=== PATIENT | male | born 1940 | race Asian ===

== ENCOUNTER 2021-04-14 11:13 | Outpatient (REF) | payer MEDICARE, SELFPAY ==
[2021-04-14 12:24] LABS: MANUAL DIFF FLAG NO
[2021-04-14 12:31] LABS: Basophils Absolute Auto 0.1 X10*3/uL (0.0-0.2); Basophils Percent Auto 0.9 % (0-2); Eosinophils Absolute Auto 0.3 X10*3/uL (0.0-0.4); Eosinophils Percent Auto 5.6 % (0-4); Hematocrit 43.7 % (42-52); Imm Gran Abs Auto 0.01 X10*3/uL (0.00-0.03); Imm Gran Pct Auto 0.2 % (0.0-0.4); Lymphocytes Absolute Auto 1.4 X10*3/uL (1.2-4.9); Lymphocytes Percent Auto 25.5 % (20-40); Mean Corpuscular Hemoglobin 30.4 pg (27.0-33.0); Mean Platelet Volume 9.5 fL (9.4-12.4); Monocytes Absolute Auto 0.4 X10*3/uL (0.1-1.2); Neutrophils Absolute Auto 3.2 X10*3/uL (2.0-8.3); Neutrophils Percent Auto 59.8 % (45-73); Platelet Count 143 X10*3/uL (160-400); Red Cell Distribution Width 12.1 % (11.0-16.0); White Blood Count 5.4 X10*3/uL (4.8-10.8)
[2021-04-14 13:09] LABS: TSH reflex Free T4 0.74 uIU/mL (0.32-4.0); Vitamin D 25-OH Total 22.5 ng/mL (>30)
[2021-04-14 13:25] LABS: Folate 13.8 ng/mL (> or = 4.0); Vitamin B12 432 pg/mL (200-900)
[2021-04-14 13:43] LABS: Alanine Aminotransferase 6 U/L (0-40); Alkaline Phosphatase 67 U/L (39-117); Anion Gap 12 (12-20); Aspartate Amino Transferase 16 U/L (5-37); Bilirubin Total 0.7 mg/dL (0.0-1.0); Blood Urea Nitrogen 15 mg/dL (9-16); Calcium 8.3 mg/dL (8.4-10.2); Carbon Dioxide 25 mmol/L (22-29); Chloride 111 mmol/L (96-108); Cholesterol 236 mg/dL; Estimated Glomerular Filt Rate > 60; Glucose Fasting 95 mg/dL (60-99); HDL Cholesterol 60 mg/dL; Iron 116 mcg/dL (45-160); LDL Cholesterol Calculated 153 mg/dl; Percent Iron Saturation 41 % (15-50); Potassium 4.8 mmol/L (3.3-5.1); Sodium 143 mmol/L (135-145); Total Iron Binding Capacity 283 mcg/dL (228-428); Total Protein 6.9 g/dL (6.5-8.0); Triglycerides 118 mg/dL; Unsaturated Iron Binding 167 ug/dL
[2021-04-14 14:08] LABS: Prostate Specific Antigen 2.92 ng/mL (<0.05-4.0)
[2021-04-14 14:12] LABS: Glucose Urine UA NEG (NEG); Leukocyte Esterase Urine 1+ (NEG); Nitrite Urine NEG (NEG); Specific Gravity - Urine 1.015 (1.005-1.025); UACC Culture Trigger YES; Urine Blood NEG (NEG); Urine Ketones NEG (NEG); Urine Protein NEG (NEG-TRACE)
[2021-04-14 14:15] LABS: Appearance Urine HAZY; Color Urine YELLOW
[2021-04-14 14:37] LABS: RBC Urine 0-2 /HPF (0)
== END 2021-04-14 11:14 | disposition home or self-care (01) ==
LOC: HO.LAB 11:13
PROVIDERS: PCP Internal Medicine; Visit Provider Internal Medicine
DX: Z00.00 Encounter for general adult medical examination without abnormal findings (principal); Z12.5 Encounter for screening for malignant neoplasm of prostate; E78.00 Pure hypercholesterolemia, unspecified; M54.10 Radiculopathy, site unspecified; D64.9 Anemia, unspecified; E55.9 Vitamin D deficiency, unspecified
CPT/HCPCS: 36415; 80053; 80061; 81001; 81003; 82306; 82607; 82746; 83540; 84153; 84443; 85025; 87086

== ENCOUNTER 2021-06-21 08:23 | Outpatient (REF) | payer MEDICARE, SELFPAY ==
--- NOTE | 2021-06-21 09:55 | MHC.AU.ANR ---
Adult Audiological Evaluation Date of Visit: 06/21/21 Rouge Sifter Used: Cantonese- In Person Reason for Appointment: Audiological evaluation due to concern for decreased hearing. Mr. Zarate notes that he hasn't been able to hear from the left ear for 20+ years. He states that in 1992 he was told by a doctor that smoking was causing problems with his throat and ear. Mr. Zarate states he quit smoking at that time but his hearing never improved. He states that he has been evaluated in the past and was told that a hearing aid wouldn't help in the left ear. He feels his right ear is gradually getting worse as well. He notes that if he is paying full attention he is able to hear and understand well, but often he'll miss what was said and ask for repetition. Does patient feel they have a hearing loss?: Yes If Yes, Which Ear?: Both Ears When Was Hearing Difficulty First Noticed?: 20+ years ago Hearing Handicap Inventory: HHIE SCORE: 8 Based on HHIE score, patient has: No perceived hearing handicap Ear History: Ear Infections in Childhood: Both Ears Medical History: Medical History: Previous Tobacco Use (quit in 1992) Medical History (Other): Frequent sinus congestion and seasonal allergies, high cholesterol Medication List: Meloxicam 7.5 mg, Senna 8.6 mg 1-3 capsules PRN Otoscopy: Right Ear: Unremarkable Left Ear: Unremarkable Tympanometry: Tympanometry performed due to: To assess integrity of the middle ear system Right Ear: Normal Middle Ear System (Type A) Left Ear: Normal Middle Ear System (Type A) Hearing Evaluation: Transducer(s) Used: Insert Earphones, Bone Conduction Method: Conventional Audiometry Stimuli Used: Pure Tones Right Ear: Description of Hearing: Mild sloping to severe sensorineural hearing loss from 250-8000 Hz. Left Ear: Description of Hearing: Severe mixed hearing loss from 250-6000 Hz, sloping to a profound hearing loss at 8000 Hz. Speech Recognition Threshold (SRT): Method Used: Not performed at today's visit. Did not test - Patient speaks Cantonese Word Discrimination: Method: Not performed at today's visit. Did not test - Patient speaks Cantonese Recommendations: Audiological re-evaluation in one year to monitor hearing loss. Trial with amplification is recommended. Referral to Ear, Nose, and Throat is recommended due to asymmetric hearing and mixed hearing loss in the left ear. Advised patient that we do no accept his health insurance for hearing aids at our clinic. Recommended that he contact his health insurance company to see if he has hearing aid benefits and where he can go to use them. Welcomed to return to discuss hearing aids if he decides to pursue hearing aids through our clinic on a patient pay basis or if his insurance with reimburse the hearing aid expense. Diagnosis: Primary Diagnosis: H90.3 Bilateral Sensorineural Hearing Loss Services Performed: Services Performed: Pure Tone- Air & Bone (CPT 99538) Tympanometry (CPT 53707) Signature: Provider: Donaldo Sorenson, CCC-A
== END 2021-06-21 08:24 | disposition home or self-care (01) ==
LOC: HO.SH 08:23
PROVIDERS: Visit Provider Internal Medicine
DX: H91.92 Unspecified hearing loss, left ear (principal)
CPT/HCPCS: 92553; 92567

== ENCOUNTER 2021-08-19 10:22 | Outpatient (REF) | payer MEDICARE, SELFPAY ==
[2021-08-19 13:42] LABS: Hemoglobin 13.9 g/dl (14.0-18.0); Mean Corpuscular HGB Conc 32.3 g/dl (31.0-36.0); Mean Corpuscular Hemoglobin 30.3 pg (27.0-33.0); Mean Corpuscular Volume 93.9 fL (80-98); Mean Platelet Volume 10.1 fL (9.4-12.4); Platelet Count 153 X10*3/uL (160-400); Red Blood Count 4.58 X10*6/uL (4.60-5.80); Red Cell Distribution Width 12.4 % (11.0-16.0); White Blood Count 6.9 X10*3/uL (4.8-10.8)
[2021-08-19 13:57] LABS: Anion Gap 16 (12-20); Blood Urea Nitrogen 14 mg/dL (9-16); Carbon Dioxide 22 mmol/L (22-29); Chloride 108 mmol/L (96-108); Estimated Glomerular Filt Rate > 60; Glucose Random 92 mg/dL (60-115); Potassium 4.4 mmol/L (3.3-5.1); Sodium 142 mmol/L (135-145)
[2021-08-19 14:21] LABS: Thyroid Stimulating Hormone 0.83 uIU/mL (0.32-4.0)
[2021-08-19 14:25] LABS: Erythrocyte Sedimentation Rate 18 MM/HR (0-15)
== END 2021-08-19 10:23 | disposition home or self-care (01) ==
LOC: HO.HMGCLDS 10:22
PROVIDERS: PCP Internal Medicine; Visit Provider Internal Medicine
DX: E07.9 Disorder of thyroid, unspecified (principal)
CPT/HCPCS: 36415; 80048; 84443; 85027; 85652

== ENCOUNTER 2021-08-24 14:03 | Outpatient (REF) | payer MEDICARE, SELFPAY ==
--- NOTE | ~2021-08-24 | US_ITS ---
EXAMINATION: US THYROID CLINICAL INFORMATION: Sudden swelling left thyroid COMPARISON: None TECHNIQUE: Linear transducer fair-scale and color Doppler examination with attention to the region of the thyroid. FINDINGS: SIZE: Measurements of the thyroid lobes and nodules are given in sagittal, anteroposterior and transverse dimensions respectively. Right Thyroid Lobe: 4.8 x 1.3 x 1.6 cm, volume 5.2 mL. Parenchyma: The gland echotexture is homogeneous. Thyroid vascularity is normal. Left Thyroid Lobe: 6.5 x 4.0 x 4.4 cm, volume 59.8 mL. Parenchyma: The gland echotexture is homogeneous. Thyroid vascularity is normal. Isthmus: 0.3 cm in maximum AP dimension. Estimated total number of nodules greater than or equal to 1 cm: 1. Interlacer nodules are described as follows: 1. Location: Left. Size: 5.8 x 3.7 x 5.2 cm, volume 58.7 mL. Nodule characteristics: Composition: Mixed cystic and solid (1). Echogenicity: Very hypoechoic (3). Shape: Not taller than wide (0). Margins: Lobulated (2). Echogenic Foci: Punctate echogenic foci (3). ACR TI-RADS total points: 9 ACR TI-RADS category: 5 NODES: No lymphadenopathy is seen in the tissue surrounding the thyroid gland. US/US thyroid IMPRESSION: Abnormal study. There is a large 5.8 cm mixed cystic, solid nodule identified involving nearly the entire left lobe of the thyroid gland. Based on the sonographic morphology, the nodule is characterized as ACR TI-RADS 5. Based on the size of the nodule, fine-needle aspiration is recommended. ACR TI-RADS RECOMMENDATION REFERENCE: Ultrasound-guided fine-needle aspiration, followup ultrasound, no further follow up. * TR1 (0 point) and TR 2 (2 points): No FNA or follow up * TR3 (3 points): FNA if more than or equal to 2.5 cm in maximum dimension, followup ultrasound in 1, 3 and 5 years if 1.5 to 2.4 cm in maximum dimension. * TR4 (4-6 points): FNA if more than or equal to 1.5 cm in maximum dimension, followup ultrasound in 1, 2, 3 and 5 years if 1 to 1.4 cm in maximum dimension. * TR5 (more than or equal to 7 points): FNA if more than or equal to 1 cm in maximum dimension, followup ultrasound every year for 5 years if 0.5 to 0.9 cm in maximum dimension. * TR3, TR4 or TR5 nodules that are below the size threshold for follow up receive no follow up.
== END 2021-08-24 14:04 | disposition home or self-care (01) ==
LOC: HO.HMGCX 14:03
PROVIDERS: PCP Internal Medicine; Visit Provider Internal Medicine
DX: E07.9 Disorder of thyroid, unspecified (principal)
CPT/HCPCS: 76536

== ENCOUNTER → 2021-11-20 07:01 | Outpatient (BNVA) | payer MEDICARE, SELFPAY | PROVIDERS: PCP Internal Medicine; Visit Provider Internal Medicine | DX: E04.1 Nontoxic single thyroid nodule (principal); E55.9 Vitamin D deficiency, unspecified | CPT/HCPCS: Q3014 ==

== ENCOUNTER 2021-11-21 08:40 | Outpatient (REF) | payer MEDICARE, SELFPAY ==
[2021-11-21 11:59] LABS: Alanine Aminotransferase 10 U/L (0-40); Albumin Level 3.9 g/dL (3.5-5.0); Alkaline Phosphatase 63 U/L (39-117); Anion Gap 12 (12-20); Aspartate Amino Transferase 18 U/L (5-37); Bilirubin Total 0.9 mg/dL (0.0-1.0); Blood Urea Nitrogen 15 mg/dL (9-16); Calcium 9.2 mg/dL (8.4-10.2); Carbon Dioxide 26 mmol/L (22-29); Chloride 111 mmol/L (96-108); Estimated Glomerular Filt Rate 60; Glucose Random 100 mg/dL (60-115); Phosphorus 2.8 mg/dL (2.7-4.5); Potassium 4.7 mmol/L (3.3-5.1); Sodium 144 mmol/L (135-145); Total Protein 7.1 g/dL (6.5-8.0)
[2021-11-21 12:24] LABS: Free T4 (Free Thyroxine) 0.98 ng/dL (0.71-1.85); Thyroid Stimulating Hormone 1.79 uIU/mL (0.32-4.0); Vitamin D 25-OH Total 14.9 ng/mL (>30)
[2021-11-22 14:46] LABS: Calcium (PTHI) 8.9 mg/dL (8.6-10.3); PTHI 43 pg/mL (14-64)
== END 2021-11-21 08:41 | disposition home or self-care (01) ==
LOC: HO.HMGCLDS 08:40
PROVIDERS: Visit Provider Internal Medicine
DX: E04.1 Nontoxic single thyroid nodule (principal); E55.9 Vitamin D deficiency, unspecified
CPT/HCPCS: 36415; 80053; 82306; 83970; 84100; 84439; 84443

== ENCOUNTER 2021-11-27 07:22 | Outpatient (REF) | payer MEDICARE, SELFPAY ==
--- NOTE | ~2021-11-27 | CT_ITS ---
EXAMINATION: CT SOFT TISSUE NECK WITHOUT CONTRAST CLINICAL INFORMATION: Nontoxic single thyroid nodule. COMPARISON: Previous thyroid ultrasound August 2021. TECHNIQUE: Helical imaging was performed in the axial plane with generation of coronal and sagittal reformatted images. This CT examination was performed using dose optimization techniques as appropriate, variously including the following: *Automated exposure control *Adjustment of mA and/or kV according to patient size (this includes techniques or standardized protocols for targeted exams where dose is matched to indication/reason for exam; i.e. extremities or head) *Use of iterative reconstruction technique DLP: 346 mGy-cm FINDINGS: There is a solitary 2 x 2.5 x 3.6 cm left thyroid nodule. Right lobe of the thyroid gland is normal-appearing. Left thyroid nodule displaces the trachea slightly to the right. There is diffuse shotty cervical lymphadenopathy. No enlarged lymph nodes are seen. Visualized intracranial structures are normal. The visualized orbits are normal. The visualized paranasal sinuses are clear. There is underaeration and increased sclerosis of the left mastoid air cells questionable for changes from old mastoiditis. Right mastoid air cells and bilateral middle ears are clear. The temporomandibular joints are normal. The nasal and oropharynx and hypopharynx are normal appearing. The larynx is normal appearing. The salivary glands are normal. There are no enlarged mediastinal lymph nodes. The visualized thoracic aorta is upper normal in size. Evaluation of the lung apices is limited due to respiratory motion artifact. There is question of area of atelectasis and patchy groundglass attenuation. There are degenerative changes of the spine. CT/CT soft tissue neck wo con IMPRESSION: Solitary 2 x 2.5 x 3.6 cm left thyroid nodule that displaces the trachea to the right. Diffuse shotty cervical lymphadenopathy. No enlarged lymph nodes seen. Question patchy areas of atelectasis and groundglass attenuation at the lung apices. Clinical correlation is recommended.
== END 2021-11-27 07:23 | disposition home or self-care (01) ==
LOC: HO.CT 07:22
PROVIDERS: Visit Provider Internal Medicine
DX: E04.1 Nontoxic single thyroid nodule (principal)
CPT/HCPCS: 70490

== ENCOUNTER 2021-12-21 07:20 | Outpatient (REF) | payer MEDICARE, SELFPAY ==
--- NOTE | 2021-12-21 08:19 | P.BOP_ITS ---
Brief Operative Note Date of Service: 12/21/21 Pre-op diagnosis: Thyroid Nodule Procedure: This is doctor Lucia Lou. This is an ultrasound-guided fine-needle aspiration report. Date of Examination: 12/21/2021 Indication: Multinodular Thyroid Porcedure: Procedure was explained to the patient. Alternatives, the risk and benefits were discussed. Written consent was obtained. A time-out was also obtained. After sterile preparation, fine-needle aspiration of a left mid pole 5.8 cm thyroid nodule was performed using direct ultrasound guidance to confirm accurate needle placement. 5 aspirations were made using 27 gauge needles. An additional 1 aspiration was made using a 25 guage needle. 11 cc of chocolate brown serosanguinous material was aspirated using a 22 guage needle. Samples were submitted for cytology. One pass was dedicated for [employer] Gene sequencing steward/stewardess lounge testing. The patient tolerated the procedure well. Aftercare instructions were provided. Impression: Uncomplicated fine needle aspiration biopsy of a left mid pole 5.8 cm thyroid nodule under ultrasound guidance. Surgeon: Lucia Lou, DO Was an Bulk Fluids Handler used for this Procedure?: No Estimated blood loss (mL): 0
[2021-12-21] MEDS: Lidocaine HCl 1 % MPF 5 ML VIAL SUBCUT (09:53)
== END 2021-12-21 07:21 | disposition home or self-care (01) ==
LOC: HO.US 07:20
PROVIDERS: Visit Provider Internal Medicine
DX: E04.1 Nontoxic single thyroid nodule (principal)
CPT/HCPCS: 10005; 88172; 88173; 88177

== ENCOUNTER → 2022-01-04 09:41 | Outpatient (BNVA) | payer MEDICARE, SELFPAY | PROVIDERS: PCP Internal Medicine; Visit Provider Internal Medicine | DX: Z13.89 Encounter for screening for other disorder (principal) | CPT/HCPCS: Q3014 ==

== ENCOUNTER 2022-04-16 09:53 | Outpatient (REF) | payer OTHER, SELFPAY ==
[2022-04-16 10:15] LABS: MANUAL DIFF FLAG NO
[2022-04-16 10:49] LABS: Basophils Percent Auto 0.3 % (0-2); Eosinophils Absolute Auto 0.3 X10*3/uL (0.0-0.4); Eosinophils Percent Auto 3.9 % (0-4); Hematocrit 44.5 % (42.0-52.0); Hemoglobin 14.4 g/dl (14.0-18.0); Imm Gran Abs Auto 0.03 X10*3/uL (0.00-0.03); Imm Gran Pct Auto 0.5 % (0.0-0.4); Lymphocytes Absolute Auto 1.1 X10*3/uL (1.2-4.9); Lymphocytes Percent Auto 16.8 % (20-40); Mean Corpuscular HGB Conc 32.4 g/dl (31.0-36.0); Mean Corpuscular Hemoglobin 30.6 pg (27.0-33.0); Mean Corpuscular Volume 94.7 fL (80.0-98.0); Mean Platelet Volume 9.5 fL (9.4-12.4); Monocytes Absolute Auto 0.5 X10*3/uL (0.1-1.2); Monocytes Percent Auto 7.1 % (2-11); Neutrophils Absolute Auto 4.8 x10*3/uL (2.0-8.3); Neutrophils Percent Auto 71.4 % (45-73); Platelet Count 141 X10*3/uL (160-400); Red Cell Distribution Width 12.2 % (11.0-16.0); White Blood Count 6.7 X10*3/uL (4.8-10.8)
[2022-04-16 11:08] LABS: Appearance Urine CLEAR; Color Urine YELLOW; Glucose Urine UA NEG (NEG); Leukocyte Esterase Urine NEG (NEG); Nitrite Urine NEG (NEG); Urine Blood NEG (NEG); Urine Ketones NEG (NEG); Urine Protein NEG (NEG-TRACE)
[2022-04-16 11:13] LABS: Alanine Aminotransferase 21 U/L (0-40); Albumin Level 4.3 g/dL (3.5-5.0); Alkaline Phosphatase 71 U/L (39-117); Anion Gap 9 (12-20); Aspartate Amino Transferase 23 U/L (5-37); Blood Urea Nitrogen 18 mg/dL (9-16); Calcium 9.1 mg/dL (8.4-10.2); Carbon Dioxide 29 mmol/L (22-29); Chloride 108 mmol/L (96-108); Cholesterol 182 mg/dL; Estimated Glomerular Filt Rate > 60; Glucose Fasting 99 mg/dL (60-99); HDL Cholesterol 56 mg/dL; LDL Cholesterol Calculated 107 mg/dl; Potassium 5.2 mmol/L (3.3-5.1); Sodium 141 mmol/L (135-145); Total Protein 7.5 g/dL (6.5-8.0); Triglycerides 97 mg/dL
[2022-04-16 11:36] LABS: TSH reflex Free T4 1.65 uIU/mL (0.32-4.0); Vitamin D 25-OH Total 50.4 ng/mL (>30)
== END 2022-04-16 09:54 | disposition home or self-care (01) ==
LOC: HO.LAB 09:53
PROVIDERS: PCP Internal Medicine; Visit Provider Internal Medicine
DX: Z00.00 Encounter for general adult medical examination without abnormal findings (principal); Z12.5 Encounter for screening for malignant neoplasm of prostate; E78.00 Pure hypercholesterolemia, unspecified; N40.0 Benign prostatic hyperplasia without lower urinary tract symptoms; E04.1 Nontoxic single thyroid nodule; E55.9 Vitamin D deficiency, unspecified
CPT/HCPCS: 36415; 80053; 80061; 81003; 82306; 84153; 84443; 85025

== ENCOUNTER 2022-06-06 10:37 | Outpatient (REF) | payer OTHER, SELFPAY ==
--- NOTE | ~2022-06-06 | XR_ITS ---
EXAMINATION: XR ELBOW, RIGHT CLINICAL INFORMATION: Elbow pain COMPARISON: None TECHNIQUE: AP, lateral, and oblique views of the right elbow. FINDINGS: There is no acute fracture, dislocation or destructive process. Minor areas of osseous density are seen related to the distal humerus which appear chronic. XR/XR elbow RT 2V IMPRESSION: No acute findings.
== END 2022-06-06 10:38 | disposition home or self-care (01) ==
LOC: HO.HMGCX 10:37
PROVIDERS: PCP Internal Medicine; Visit Provider Physician Assistant
DX: M25.521 Pain in right elbow (principal)
CPT/HCPCS: 73070

== ENCOUNTER 2022-07-10 10:16 | Outpatient (REF) | payer OTHER, SELFPAY ==
[2022-07-10 12:28] LABS: Free T4 (Free Thyroxine) 0.98 ng/dL (0.71-1.85); Thyroid Stimulating Hormone 1.51 uIU/mL (0.32-4.0); Vitamin D 25-OH Total 48.6 ng/mL (>30)
== END 2022-07-10 10:17 | disposition home or self-care (01) ==
LOC: HO.HMGCLDS 10:16
PROVIDERS: PCP Internal Medicine; Visit Provider Internal Medicine
DX: E04.1 Nontoxic single thyroid nodule (principal); E55.9 Vitamin D deficiency, unspecified
CPT/HCPCS: 36415; 82306; 84439; 84443

== ENCOUNTER → 2022-07-12 13:47 | Outpatient (BNVA) | payer OTHER, SELFPAY | PROVIDERS: PCP Internal Medicine; Visit Provider Internal Medicine | DX: E04.1 Nontoxic single thyroid nodule (principal); E55.9 Vitamin D deficiency, unspecified | CPT/HCPCS: 99212 ==

== ENCOUNTER 2022-07-20 15:49 | Outpatient (REF) | payer OTHER, SELFPAY ==
--- NOTE | ~2022-07-20 | US_ITS ---
EXAMINATION: US THYROID CLINICAL INFORMATION: Nontoxic single thyroid nodule. COMPARISON: CT soft tissue neck 11/27/2021. Ultrasound soft tissue head/neck thyroid dated 08/24/2021. TECHNIQUE: Linear transducer grayscale and color Doppler examination with attention to the region of the thyroid. FINDINGS: SIZE: Measurements of the thyroid lobes and nodules are given in sagittal, anteroposterior and transverse dimensions respectively. Right Thyroid Lobe: 3.9 x 1.4 x 2.0 cm, volume 5.7 mL. Previously 4.8 x 1.3 x 1.6 cm, volume 5.2 mL. Parenchyma: The gland echotexture is homogeneous. Thyroid vascularity is normal. Left Thyroid Lobe: 3.6 x 2.0 x 2.1 cm, volume 7.9 mL. Previously 6.5 x 4.0 x 4.4 cm, volume 59.8 mL. Parenchyma: The gland echotexture is homogeneous. Thyroid vascularity is normal. Isthmus: 0.4 cm in maximum AP dimension. Previously 0.3 cm. Estimated total number of nodules greater than or equal to 1 cm: 1. Race Board Attendant nodules are described as follows: 1. Location: Left mid. Size: 1.7 x 1.3 x 1.9 cm, volume 2.2 mL. Previously: 5.8 x 3.7 x 5.2 cm, volume 58.7 mL. Nodule characteristics: Composition: Solid (2). Echogenicity: Isoechoic (1). Shape: Not taller than wide (0). Margins: Smooth (0). Echogenic Foci: None (0). ACR TI-RADS total points: 3 Previous: 9 ACR TI-RADS category: 3 Previous: 5 Significant change in size (>/= 20% in 2 dimensions and minimal increase of 2 mm or 50% or greater increase in volume): Yes Change in features: Yes Change in ACR TI-RADS risk category: Yes 2. Location: Left superior. Size: 0.4 x 0.3 x 0.4 cm, volume 0.02 mL. Previously: Not seen on the previous study. Nodule characteristics: Composition: Cystic(0). ACR TI-RADS total points: 0 ACR TI-RADS category: 1 NODES: No lymphadenopathy is seen in the tissue surrounding the thyroid gland. US/US thyroid IMPRESSION: Previously visualized mixed cystic and solid nodule of the left thyroid lobe which previously measured 5.8 cm is primarily solid on today's imaging and has significantly decreased in size measuring only 1.9 cm. Patient has a reported history of FNA at an outside institution. Correlation with biopsy results recommended. ACR TI-RADS RECOMMENDATION REFERENCE: Ultrasound-guided fine-needle aspiration, followup ultrasound, no further follow up. * TR1 (0 point) and TR 2 (2 points): No FNA or follow up * TR3 (3 points): FNA if more than or equal to 2.5 cm in maximum dimension, followup ultrasound in 1, 3 and 5 years if 1.5 to 2.4 cm in maximum dimension. * TR4 (4-6 points): FNA if more than or equal to 1.5 cm in maximum dimension, followup ultrasound in 1, 2, 3 and 5 years if 1 to 1.4 cm in maximum dimension. * TR5 (more than or equal to 7 points): FNA if more than or equal to 1 cm in maximum dimension, followup ultrasound every year for 5 years if 0.5 to 0.9 cm in maximum dimension. * TR3, TR4 or TR5 nodules that are below the size threshold for follow up receive no follow up.
== END 2022-07-20 15:50 | disposition home or self-care (01) ==
LOC: HO.US 15:49
PROVIDERS: Visit Provider Internal Medicine
DX: E04.1 Nontoxic single thyroid nodule (principal)
CPT/HCPCS: 76536

== ENCOUNTER 2022-07-23 12:41 | Outpatient (REF) | payer OTHER, SELFPAY ==
--- NOTE | ~2022-07-23 | XR_ITS ---
EXAMINATION: XR SHOULDER, LEFT CLINICAL INFORMATION: Left shoulder pain COMPARISON: None TECHNIQUE: Three views of the left shoulder. FINDINGS: Mild/moderate glenohumeral osteoarthritis with osteophytes along the inferior glenoid rim and humeral head. No fracture. No suspicious bone lesion or soft tissue calcification. 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 No acute abnormality.
== END 2022-07-23 12:42 | disposition home or self-care (01) ==
LOC: HO.HOSX 12:41
PROVIDERS: Visit Provider Physician Assistant
DX: M25.512 Pain in left shoulder (principal); S16.1XXD Strain of muscle, fascia and tendon at neck level, subsequent encounter; X58.XXXD Exposure to other specified factors, subsequent encounter; Z79.899 Other long term (current) drug therapy
CPT/HCPCS: 73030; 99202

== ENCOUNTER 2023-01-14 08:48 | Outpatient (REF) | payer OTHER, SELFPAY ==
[2023-01-14 12:42] LABS: Alanine Aminotransferase 14 U/L (0-40); Albumin Level 3.9 g/dL (3.5-5.0); Alkaline Phosphatase 66 U/L (39-117); Anion Gap 12 (12-20); Aspartate Amino Transferase 18 U/L (5-37); Blood Urea Nitrogen 16 mg/dL (9-16); Calcium 8.7 mg/dL (8.4-10.2); Carbon Dioxide 26 mmol/L (22-29); Chloride 109 mmol/L (96-108); Cholesterol 172 mg/dL; Estimated Glomerular Filt Rate > 60; Glucose Fasting 95 mg/dL (60-99); HDL Cholesterol 56 mg/dL; LDL Cholesterol Calculated 100 mg/dl; Potassium 4.2 mmol/L (3.3-5.1); Sodium 143 mmol/L (135-145); Thyroid Stimulating Hormone 2.45 uIU/mL (0.32-4.0); Total Protein 6.7 g/dL (6.5-8.0); Triglycerides 84 mg/dL
[2023-01-14 12:50] LABS: Free T4 (Free Thyroxine) 0.93 ng/dL (0.71-1.85)
== END 2023-01-14 08:49 | disposition home or self-care (01) ==
LOC: HO.HMGCLDS 08:48
PROVIDERS: PCP Internal Medicine; Visit Provider Internal Medicine
DX: E04.1 Nontoxic single thyroid nodule (principal); E78.00 Pure hypercholesterolemia, unspecified
CPT/HCPCS: 36415; 80053; 80061; 84439; 84443

== ENCOUNTER → 2023-01-21 07:43 | Outpatient (BNVA) | payer OTHER, SELFPAY | PROVIDERS: PCP Internal Medicine; Visit Provider Internal Medicine | DX: E04.1 Nontoxic single thyroid nodule (principal) | CPT/HCPCS: 99212 ==

== ENCOUNTER 2023-01-28 07:51 | Outpatient (REF) | payer OTHER, SELFPAY ==
--- NOTE | ~2023-01-28 | CT_ITS ---
CT SOFT TISSUE NECK WITHOUT CONTRAST CLINICAL INFORMATION: Nontoxic single thyroid nodule. COMPARISON: Thyroid ultrasound 07/20/2022. TECHNIQUE: Helical imaging was performed in the axial plane with generation of coronal and sagittal reformatted images. This CT examination was performed using dose optimization techniques as appropriate, variously including the following: *Automated exposure control *Adjustment of mA and/or kV according to patient size (this includes techniques or standardized protocols for targeted exams where dose is matched to indication/reason for exam; i.e. extremities or head) *Use of iterative reconstruction technique FINDINGS: A 1.9 cm nodule within the anterior aspect of the left thyroid lobe is better demonstrated on the recent thyroid ultrasound. There is no significant mass effect on the trachea nor the esophagus. No retropharyngeal fluid collections. The parotid glands, the submandibular glands, and the orbital soft tissues are unremarkable. There is no cervical lymphadenopathy. No definite superficial mucosal space lesions on this noncontrast CT. The imaged lungs are well aerated. Imaged upper mediastinum is unremarkable. There is multilevel cervical spondylosis. Hypertrophic degenerative changes involving the atlantodental interval. The paranasal sinuses remain well-aerated. Left mastoid air cells are peripherally sclerotic and underpneumatized as the sequela of chronic left mastoiditis. CT/CT soft tissue neck wo IV con IMPRESSION: A 1.9 cm nodule within the anterior aspect of the left thyroid lobe is better demonstrated on the recent thyroid ultrasound and likely similar in size. No mass effect. No cervical lymphadenopathy.
== END 2023-01-28 07:52 | disposition home or self-care (01) ==
LOC: HO.CT 07:51
PROVIDERS: PCP Internal Medicine; Visit Provider Internal Medicine Endocrinology, Diabetes & Metabolism
DX: E04.1 Nontoxic single thyroid nodule (principal)
CPT/HCPCS: 70490

== ENCOUNTER 2023-03-28 08:00 | Outpatient (REF) | payer OTHER, SELFPAY ==
--- NOTE | 2023-03-28 08:46 | PM.OP ---
Brief Operative Note Date of Service: 03/28/23 Pre-op diagnosis: Thyroid Nodule Procedure: This is doctor Lucia Lou. This is an ultrasound-guided fine-needle aspiration report. Indication: Multinodular Thyroid Porcedure: Procedure was explained to the patient. Alternatives, the risk and benefits were discussed. Written consent was obtained. A time-out was also obtained. After sterile preparation, 1 ml of 1% lidocaine solution was applied subcutaneously for anesthetic effect. Then Fine-needle aspiration of a left mid pole 1.6 cm thyroid nodule was performed using direct ultrasound guidance to confirm accurate needle placement. Two aspirations were made using 27 gauge needles. An additional 3 aspirations were made using 25 guage needles. Samples were submitted for cytology. One pass was dedicated for [employer] Gene sequencing management architect testing. The patient tolerated the procedure well. Aftercare instructions were provided. Impression: Uncomplicated fine needle aspiration biopsy of a left mid pole 1.6 cm thyroid nodule under ultrasound guidance. The patient had difficulty tolerating the biopsy. No additional passess were made after those listed above. Surgeon: Lucia Lou, DO Was an Purchasing Coordinator used for this Procedure?: No Estimated blood loss (mL): 0
[2023-03-28] MEDS: Lidocaine HCl 1 % MPF 5 ML VIAL SUBCUT (10:44)
== END 2023-03-28 08:01 | disposition home or self-care (01) ==
LOC: HO.US 08:00
PROVIDERS: PCP Internal Medicine; Visit Provider Internal Medicine
DX: E04.2 Nontoxic multinodular goiter (principal)
CPT/HCPCS: 10005; 88172; 88173; 88177; 88305

== ENCOUNTER 2023-04-19 09:36 | Outpatient (REF) | payer OTHER, SELFPAY ==
[2023-04-19 11:17] LABS: MANUAL DIFF FLAG NO
[2023-04-19 11:32] LABS: Appearance Urine Clear; Color Urine Yellow; Glucose Urine UA Negative (Negative); Leukocyte Esterase Urine Negative (Negative); Nitrite Urine Negative (Negative); Specific Gravity - Urine 1.015 (1.005-1.025); Urine Blood Negative (Negative); Urine Ketones Negative (Negative); Urine Protein Trace mg/dL (Neg-Trace)
[2023-04-19 11:36] LABS: Basophils Absolute Auto 0.1 X10*3/uL (0.0-0.2); Basophils Percent Auto 0.9 % (0-2); Eosinophils Absolute Auto 0.2 X10*3/uL (0.0-0.4); Eosinophils Percent Auto 3.1 % (0-4); Hematocrit 41.8 % (42.0-52.0); Hemoglobin 13.5 g/dl (14.0-18.0); Imm Gran Abs Auto 0.02 X10*3/uL (0.00-0.03); Imm Gran Pct Auto 0.4 % (0.0-0.4); Lymphocytes Absolute Auto 1.2 X10*3/uL (1.2-4.9); Lymphocytes Percent Auto 21.1 % (20-40); Mean Corpuscular HGB Conc 32.3 g/dl (31.0-36.0); Mean Corpuscular Hemoglobin 30.8 pg (27.0-33.0); Mean Corpuscular Volume 95.4 fL (80.0-98.0); Mean Platelet Volume 9.6 fL (9.4-12.4); Monocytes Absolute Auto 0.5 X10*3/uL (0.1-1.2); Monocytes Percent Auto 9.7 % (2-11); Neutrophils Absolute Auto 3.6 x10*3/uL (2.0-8.3); Neutrophils Percent Auto 64.8 % (45-73); Platelet Count 143 X10*3/uL (160-400); Red Blood Count 4.38 X10*6/uL (4.60-5.80); Red Cell Distribution Width 12.1 % (11.0-16.0); White Blood Count 5.6 X10*3/uL (4.8-10.8)
[2023-04-19 12:02] LABS: Free T4 (Free Thyroxine) 0.95 ng/dL (0.71-1.85)
[2023-04-19 13:27] LABS: Alanine Aminotransferase 21 U/L (0-40); Albumin Level 3.7 g/dL (3.5-5.0); Alkaline Phosphatase 65 U/L (39-117); Anion Gap 12 (12-20); Aspartate Amino Transferase 22 U/L (5-37); Bilirubin Total 0.8 mg/dL (0.0-1.0); Blood Urea Nitrogen 17 mg/dL (9-16); Calcium 9.3 mg/dL (8.4-10.2); Carbon Dioxide 25 mmol/L (22-29); Chloride 110 mmol/L (96-108); Cholesterol 163 mg/dL; Estimated Glomerular Filt Rate 59; Glucose Fasting 92 mg/dL (60-99); HDL Cholesterol 51 mg/dL; LDL Cholesterol Calculated 97 mg/dl; Potassium 4.3 mmol/L (3.3-5.1); Sodium 143 mmol/L (135-145); Total Protein 6.7 g/dL (6.5-8.0); Triglycerides 79 mg/dL
[2023-04-19 13:32] LABS: TSH reflex Free T4 1.83 uIU/mL (0.32-4.0); Thyroid Stimulating Hormone 1.83 uIU/mL (0.32-4.0); Vitamin D 25-OH Total 50.4 ng/mL (>30)
== END 2023-04-19 09:37 | disposition home or self-care (01) ==
LOC: HO.HMGCLDS 09:36
PROVIDERS: Absent Provider Internal Medicine; PCP Internal Medicine; Visit Provider Internal Medicine
DX: I10 Essential (primary) hypertension (principal); E78.00 Pure hypercholesterolemia, unspecified; R30.0 Dysuria; E55.9 Vitamin D deficiency, unspecified; E04.1 Nontoxic single thyroid nodule
CPT/HCPCS: 36415; 80053; 80061; 81003; 82306; 84439; 84443; 85025

== ENCOUNTER → 2023-04-22 15:26 | Outpatient (BNVA) | payer OTHER, SELFPAY | PROVIDERS: PCP Internal Medicine; Visit Provider Internal Medicine | DX: E04.1 Nontoxic single thyroid nodule (principal) | CPT/HCPCS: 99212 ==

== ENCOUNTER 2023-09-23 09:03 | Outpatient (REF) | payer MEDICARE, SELFPAY ==
--- NOTE | ~2023-09-23 | US_ITS ---
EXAMINATION: US THYROID CLINICAL INFORMATION: Nontoxic single thyroid nodule. COMPARISON: Ultrasound-guided fine needle aspiration 03/28/2023. Thyroid ultrasound 07/20/2022 and 08/24/2021. TECHNIQUE: Linear transducer fair-scale and color Doppler examination with attention to the region of the thyroid. FINDINGS: SIZE: Measurements of the thyroid lobes and nodules are given in sagittal, anteroposterior and transverse dimensions respectively. Right Thyroid Lobe: 4.1 x 1.4 x 1.9 cm, volume 5.6 mL. Previously 3.9 x 1.4 x 2.0 cm, volume 5.7 mL. Parenchyma: The gland echotexture is homogeneous. Thyroid vascularity is increased. Left Thyroid Lobe: 5.1 x 2.2 x 2.1 cm, volume 12.6 mL. Previously 3.6 x 2.0 x 2.1 cm, volume 7.9 mL. Parenchyma: The gland echotexture is homogeneous. Thyroid vascularity is increased. Isthmus: 0.5 cm in maximum AP dimension. Previously 0.4 cm. Estimated total number of nodules greater than or equal to 1 cm: 1. Laundry Aide nodules are described as follows: 1. Location: Left superior. Size: 0.5 x 0.3 x 0.5 cm, volume 0.04 mL. Previously: 0.4 x 0.3 x 0.4 cm, volume 0.02 mL. Nodule characteristics: Composition: Cystic(0). ACR TI-RADS total points: 0 Previous: 0 ACR TI-RADS category: 1 Previous: 1 Significant change in size (>/= 20% in 2 dimensions and minimal increase of 2 mm or 50% or greater increase in volume): Yes Change in features: No Change in ACR TI-RADS risk category: No 2. Location: Left mid. Size: 1.6 x 1.1 x 1.4 cm, volume 1.2 mL. Previously: 1.7 x 1.3 x 1.9 cm, volume 2.2 mL. Nodule characteristics: Composition: Solid (2). Echogenicity: Hypoechoic (2). Shape: Not taller than wide (0). Margins: Smooth (0). Echogenic Foci: Punctate echogenic foci (3). ACR TI-RADS total points: 7 Previous: 3 ACR TI-RADS category: 5 Previous: 3 Significant change in size (>/= 20% in 2 dimensions and minimal increase of 2 mm or 50% or greater increase in volume): No Change in features: Yes Change in ACR TI-RADS risk category: Yes 3. Location: Left inferior. Size: 0.4 x 0.3 x 0.3 cm, volume 0.02 mL. Previously: Not seen on the previous study. Nodule characteristics: Composition: Cystic(0). ACR TI-RADS total points: 0 ACR TI-RADS category: 1 NODES: No lymphadenopathy is seen in the tissue surrounding the thyroid gland. US/US thyroid IMPRESSION: 1. A 1.6 cm mid left thyroid lobe TR 5 nodule meets ACR biopsy criteria. Please correlate with thyroid biopsy results dated 03/28/2023. 2. 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 3. There is increased thyroid vascularity, which can be associated with thyroiditis. ACR TI-RADS RECOMMENDATION REFERENCE: Ultrasound-guided fine-needle aspiration, follow up ultrasound, no further followup. * TR1 (0 point) and TR2 (2 points): No FNA or followup * TR3 (3 points): FNA if more than or equal to 2.5 cm in maximum dimension, follow up ultrasound in 1, 3 and 5 years if 1.5 to 2.4 cm in maximum dimension. * TR4 (4-6 points): FNA if more than or equal to 1.5 cm in maximum dimension, follow up ultrasound in 1, 2, 3 and 5 years if 1 to 1.4 cm in maximum dimension. * TR5 (more than or equal to 7 points): FNA if more than or equal to 1 cm in maximum dimension, follow up ultrasound every year for 5 years if 0.5 to 0.9 cm in maximum dimension. * TR3, TR4 or TR5 nodules that are below the size threshold for follow up receive no followup.
== END 2023-09-23 09:04 | disposition home or self-care (01) ==
LOC: HO.US 09:03
PROVIDERS: PCP Internal Medicine; Visit Provider Internal Medicine
DX: E04.1 Nontoxic single thyroid nodule (principal)
CPT/HCPCS: 76536

== ENCOUNTER 2023-10-17 09:32 | Outpatient (REF) | payer MEDICARE, SELFPAY ==
[2023-10-17 11:28] LABS: MANUAL DIFF FLAG NO
[2023-10-17 11:58] LABS: Basophils Percent Auto 0.7 % (0-2); Eosinophils Absolute Auto 0.1 X10*3/uL (0.0-0.4); Eosinophils Percent Auto 2.4 % (0-4); Hematocrit 43.7 % (42.0-52.0); Hemoglobin 14.1 g/dl (14.0-18.0); Imm Gran Abs Auto 0.02 X10*3/uL (0.00-0.03); Imm Gran Pct Auto 0.4 % (0.0-0.4); Lymphocytes Absolute Auto 1.2 X10*3/uL (1.2-4.9); Lymphocytes Percent Auto 21.6 % (20-40); Mean Corpuscular HGB Conc 32.3 g/dl (31.0-36.0); Mean Corpuscular Hemoglobin 30.8 pg (27.0-33.0); Mean Corpuscular Volume 95.4 fL (80.0-98.0); Monocytes Absolute Auto 0.5 X10*3/uL (0.1-1.2); Monocytes Percent Auto 9.2 % (2-11); Neutrophils Absolute Auto 3.6 x10*3/uL (2.0-8.3); Neutrophils Percent Auto 65.7 % (45-73); Platelet Count 144 X10*3/uL (160-400); Red Blood Count 4.58 X10*6/uL (4.60-5.80); Red Cell Distribution Width 12.5 % (11.0-16.0); White Blood Count 5.5 X10*3/uL (4.8-10.8)
[2023-10-17 12:06] LABS: Appearance Urine Clear; Color Urine Yellow; Glucose Urine UA Negative (Negative); Leukocyte Esterase Urine Negative (Negative); Nitrite Urine Negative (Negative); Specific Gravity - Urine 1.015 (1.005-1.025); Urine Blood Negative (Negative); Urine Ketones Negative (Negative); Urine Protein Negative (Neg-Trace)
[2023-10-17 12:35] LABS: Alanine Aminotransferase 15 U/L (0-40); Albumin Level 3.9 g/dL (3.5-5.0); Alkaline Phosphatase 72 U/L (39-117); Anion Gap 12 (12-20); Aspartate Amino Transferase 18 U/L (5-37); Bilirubin Total 0.9 mg/dL (0.0-1.0); Blood Urea Nitrogen 12 mg/dL (9-16); Calcium 9.2 mg/dL (8.4-10.2); Carbon Dioxide 28 mmol/L (22-29); Chloride 107 mmol/L (96-108); Cholesterol 164 mg/dL (<200); Estimated Glomerular Filt Rate > 60; Glucose Fasting 90 mg/dL (60-99); HDL Cholesterol 62 mg/dL (>40); Iron 118 mcg/dL (45-160); LDL Cholesterol Calculated 84 mg/dL (<100); Percent Iron Saturation 45 % (15-50); Potassium 4.8 mmol/L (3.3-5.1); Sodium 142 mmol/L (135-145); Thyroid Stimulating Hormone 1.51 uIU/mL (0.32-4.0); Total Iron Binding Capacity 262 mcg/dL (228-428); Triglycerides 94 mg/dL (<150); Unsaturated Iron Binding 144 ug/dL
[2023-10-17 12:36] LABS: Free T4 (Free Thyroxine) 1.06 ng/dL (0.71-1.85)
[2023-10-17 12:59] LABS: Folate 9.8 ng/mL (> or = 4.0); Vitamin B12 500 pg/mL (200-900)
== END 2023-10-17 09:33 | disposition home or self-care (01) ==
LOC: HO.HMGCLDS 09:32
PROVIDERS: Internal Medicine; PCP Internal Medicine; Visit Provider Internal Medicine
DX: E78.00 Pure hypercholesterolemia, unspecified (principal); E53.8 Deficiency of other specified B group vitamins; E55.9 Vitamin D deficiency, unspecified; R30.0 Dysuria; I10 Essential (primary) hypertension; D50.9 Iron deficiency anemia, unspecified; E04.1 Nontoxic single thyroid nodule
CPT/HCPCS: 36415; 80053; 80061; 81003; 82306; 82607; 82746; 83540; 84439; 84443; 85025

== ENCOUNTER 2023-10-25 09:33 | Outpatient (AMB) | payer MEDICARE, SELFPAY ==
[2023-10-25 09:40] VITALS: BP 138/86; PULSE 62; O2SAT 98; BMI 24.7
--- NOTE | 2023-10-25 09:40 | MHC.PC.OV ---
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 Required: No Accompanied by: Self / Same As Patient Allergies No Known Allergies Allergy (Verified 10/25/23 09:56) Medication List - Last Reconciled 10/25/23 by Davidson Glaser MD atorvastatin 10 mg PO BEDTIME 90 days [BATH BENCH WITH BACK As directed] [BATHTUB STEEL WHITE BAR As directed] betamethasone valerate 0.1% 1 appl topical DAILY PRN cetirizine 10 mg PO DAILY PRN 90 days cholecalciferol (vitamin D3) 50 mcg PO DAILY 90 days [CHROME GRAB BAR As directed] clobetasol 0.05% 1 appl topical BID docusate sodium (Dulcolax Stool Softener (docusate)) Take 1 to 2 capsules orally daily PRN for constipation 90 days [FOLDING ALUMINUM ROLLATOR As directed] hydrocortisone 1% 1 appl topical BID PRN 30 days ketotifen fumarate 0.025%(0.035%) 1 drp ophthalmic (eye) BID PRN [QUAD CANE As directed] [RAISED TOILET SEAT As directed] sennosides (senna) Take 1 to 3 capsules PO daily PRN; 30 days [TOILET SAFETY FRAME As directed] [TRANSFER BENCH As directed] trazodone 50 mg PO BEDTIME PRN 90 days Tobacco use date assessed: 10/25/23 Fall risk assessment: No Falls in past year Last assessed Fall Risk: 10/25/23 Dental Screening Dental Screen Date: 10/25/23 Did you have a dental visit in the last 12 months?: Yes Did you have a dental problem in the last 6 months where you did not have access to dental care?: No Was dental information given to patient?: Patient has dentist HPI 6mth f/u HPI Details Patient comes in today for his follow up visit States that he feels okay He denies any headaches or dizziness Denies any chest pains, no SOB No nausea/vomiting, no abdominal pain No change in bowel habits noted Needs several of his Rx refilled, including Rx for his low back pain States that he continues to experience on and off left low back pain that sometime radiate down his left leg Had his follow up labs done last week - to discuss his results [facility] Medical History Insomnia Allergic rhinitis Vitamin D deficiency Thyroid nodule Hearing loss in left ear Constipation Thrombophlebitis Radicular pain of left lower extremity Pure hypercholesterolemia Arthritis of left hip Osteoarthritis of left knee Lumbar spondylosis Surgical History History of biopsy Family History Other No significant family history Social History Household Members: Family Housing: House Alcohol intake: never Patient Tobacco Use Status: Never used Tobacco e-Cigarette/Vaping Use: Never Used Second Hand Smoke Exposure: No service: No Current occupational status: retired Cognitive needs: No Hearing needs: No Vision needs: Yes (Glasses) Questionnaire PHQ-9 Over the last 2 weeks, how often have you been bothered by any of the following problems? 1. Little interest or pleasure in doing things: not at all 2. Feeling down, depressed, or hopeless: not at all 3. Trouble falling or staying asleep, or sleeping too much: not at all 4. Feeling tired or having little energy: not at all 5. Poor appetite or overeating: not at all 6. Feeling bad about yourself - or that you are a failure or have let yourself or your family down: not at all 7. Trouble concentrating on things, such as reading the newspaper or watching television: not at all 8. Moving or speaking so slowly that other people could have noticed. Or the opposite - being so fidgety or restless that you have been moving around a lot more than usual: not at all 9. Thoughts that you would be better off or of hurting yourself in some way: not at all Total score: 0 Depression Screening Interpretation: Negative Depression Screening Done: Yes 91182 - PHQ-9 Billing: Yes Source: Developed by Drs. Seth Yu, Merary Reaves, Jn Vogel and colleagues, with an educational joe from [employer]. Thrive Questionnaire Date Thrive assessed: 10/25/23 I am a: Patient What is your living situation today?: I have a steady place to live Within the past 12 months, did the food you bought not last and you didn't have the money to get more?: Never true Within the past 12 months, did you worry whether your food would run out before you got money to buy more?: Never true Do you have trouble paying for medicines?: No Do you have trouble getting transportation to medical appointments?: No Do you have trouble paying your heating and electricity bill?: No Do you have trouble taking care of your child, family member or friend?: No Do you have trouble with day-to-day activities such as bathing, preparing meals, shopping, managing finances, etc.?: No Are you currently unemployed and looking for a job?: No Are you interested in more education?: No Please select the resources that you would like help with: None Currently or been in a relationship where the following occur: no concerns reported AUDIT C Alcohol Use Questionnaire (AUDIT-C) 1. How often do you have a drink containing alcohol?: Never 3. How often do you have six or more drinks on one occasion?: Never Total Score: 0 Score Reviewed/Action Taken: Yes SANTI-7 AMB Questionnaire SANTI-7 Date SANTI - 7 assessed: 10/25/23 Feeling nervous, anxious, or on edge: 0 = Not at all Not being able to stop or control worryin = Not at all Worrying too much about different things: 0 = Not at all Trouble relaxin = Not at all Being so restless that it is hard to sit still: 0 = Not at all Becoming easily annoyed or irritable: 0 = Not at all Feeling afraid as if something awful might happen: 0 = Not at all Total SANTI-7 score (0-4 normal; 5-9 mild; 10-14 moderate; 15-21 severe): 0 Source: Developed by Drs. Seth Yu, Merary Reaves, Jn Vogel and colleagues, with an educational joe from [employer]. Review of Systems Const Denies chills, Denies fatigue, Denies fever(s) and Denies headache(s) ENT Denies dysphagia, Denies dizziness, Denies otalgia, Denies headache(s), Denies neck pain, Denies odynophagia and Denies sore throat Card Denies chest pain, Denies palpitations and Denies dyspnea Resp Denies cough and Denies dyspnea GI Denies abdominal pain, Denies constipation, Denies dysphagia, Denies heartburn, Denies diarrhea, Denies nausea, Denies odynophagia and Denies vomiting Denies dysuria, Denies nocturia and Denies urinary frequency Musc Reports back pain (on and off over the lower back) and Denies neck pain Skin/Breast Denies rash Neuro Denies dizziness and Denies headache(s) Endo Denies fatigue and Denies palpitations Physical exam (Primary Care) Vital Signs: Last Vital Signs Pulse 62 10/25/23 09:40 BP 138/86 10/25/23 09:40 Pulse Ox 98 10/25/23 09:40 Oxygen Delivery Method Room Air 10/25/23 09:40 BMI result Body Mass Index 24.7 Tobacco/Smoking Status: Tobacco use Status Tobacco use date assessed 10/25/23 10/25/23 09:45 Patient Tobacco Use Status Never used Tobacco 10/25/23 09:45 e-Cigarette/Vaping Use Never Used 10/25/23 09:45 PHQ-9: PHQ-9 Score PHQ-9: Total score 0 10/25/23 09:45 Depression Screening Interpretation: Negative Thrive Assessment: Date of Thrive Assessment Date Thrive assessed 10/25/23 10/25/23 09:45 Currently or been in a relationship where the following occur: no concerns reported Const General: no acute distress and alert HENMT Ears: TM's normal bilaterally and EAC's normal Throat: Yes posterior oropharynx normal and Yes tonsils normal (no TP congestion) Neck Neck: Yes no lymphadenopathy and Yes supple Resp Auscultation: clear to auscultation bilaterally, no rales and no wheezes Cardio Rate: regular rate Rhythm: regular rhythm Heart sounds: no murmurs GI Palpation (GI): Soft to palpation and nontender Auscultation: normal bowel sounds Back/Spine/Pelvis Thoracic/Lumbar Spine: lumbar spinal tenderness (mild) Skin Rashes: no rashes Extrem General: Yes no clubbing, cyanosis or edema Results Reviewed Results Reviewed: Laboratory Tests 10/17/23 09:44 WBC 5.5 Hgb 14.1 Hct 43.7 Plt Count 144 L Sodium 142 Potassium 4.8 Creatinine 1.08 Estimated GFR > 60 Fasting Glucose 90 Calcium 9.2 Iron 118 TIBC 262 % Saturation 45 AST 18 ALT 15 Triglycerides 94 Cholesterol 164 LDL Cholesterol, Calc 84 HDL Cholesterol 62 Vitamin B12 500 25-OH Vitamin D Total 55.0 TSH 1.51 Free T4 1.06 Ur Specific [place] 1.015 Urine Protein Negative Urine Glucose (UA) Negative Urine Blood Negative Assessment and Plan Assessment & Plan (1) Pure hypercholesterolemia: Code(s): E78.00 - Pure hypercholesterolemia, unspecified Plan: Results of his labs done last week reviewed and discussed with patient Reinforced low-cholesterol diet Continue Atorvastatin 10 mg QD Will recheck his labs and fasting lipids in 6 months for follow-up (2) Thyroid nodule: Code(s): E04.1 - Nontoxic single thyroid nodule Plan: S/P FNA Bx in the past - pathology came out benign Repeat thyroid US done a few months ago showed (+) significant decrease in the size of the previous left thyroid cyst - has been advised that he may need to consider either ablation or resection if thyroid nodule recurs Had repeat FNA a few months ago - aspirate was non-diagnostic on pathology Patient was advised option of repeat FNA but he declined as he felt that the procedure was too painful He did agree to a repeat thyroid US in 6 months for follow up and will think about repeat FNA only if repeat imaging shows any concerning changes in his thyroid Repeat thyroid US done in September 2023 revealed (+) 1.6 cm mid left thyroid lobe with increased vascularity abd recommend FNA Bx although patient remains adamant that he does not want another Bx Follow up with endocrinology as scheduled - has appt scheduled for 11/28/2023 (3) Vitamin D deficiency: Code(s): E55.9 - Vitamin D deficiency, unspecified Plan: Continue Vitamin D3 2000 units QD (4) Mild anemia: Code(s): D64.9 - Anemia, unspecified Plan: Corrected on his recent labs IFT and B12 level done with his recent labs all came back normal (5) Allergic rhinitis: Code(s): J30.9 - Allergic rhinitis, unspecified Qualifiers: Allergic rhinitis trigger: pollen Allergic rhinitis seasonality: seasonal Qualified Code(s): J30.1 - Allergic rhinitis due to pollen Plan: Continue Fluticasone 50 mcg nasal spray BID PRN and Cetirizine 10 mg QD PRN (6) Allergic conjunctivitis: Code(s): H10.10 - Acute atopic conjunctivitis, unspecified eye Qualifiers: Laterality: unspecified laterality Qualified Code(s): H10.10 - Acute atopic conjunctivitis, unspecified eye Plan: States that he still has on and off eye symptoms, mostly itching and irritation and is requesting a refill as well of his Ketotifen 0.025% eye drops that he uses BID PRN - Rx refilled (7) Constipation: Code(s): K59.00 - Constipation, unspecified Qualifiers: Constipation type: unspecified constipation type Qualified Code(s): K59.00 - Constipation, unspecified Plan: Encouraged again increased oral fluids and dietary fiber Continue Docusate 100 mg 1 to 2 capsules QD PRN - Rx refilled (8) Primary osteoarthritis, left shoulder: Code(s): M19.012 - Primary osteoarthritis, left shoulder Plan: Left shoulder x-rays done last year in July 2022 revealed (+) mild to moderate glenohumeral osteoarthritis Reports (+) symptomatic improvement with cortisone injection from orthopedics Follow up with orthopedics as scheduled (9) Lumbar spondylosis: Code(s): M47.816 - Spondylosis without myelopathy or radiculopathy, lumbar region Plan: Reinforced activity and weight lifting restrictions to avoid aggravating his low back pain (10) Hearing loss in left ear: Code(s): H91.92 - Unspecified hearing loss, left ear Qualifiers: Hearing loss type: unspecified Qualified Code(s): H91.92 - Unspecified hearing loss, left ear Plan: Reports that he still experiences frequent tinnitus in his left ear Discussed again ways to help manage tinnitus and advised that there is really no cure for hearing loss He has declined being referred to and seeing a software quality assurance specialist for fitting of hearing aids as he does not like to wear them and they are not really covered by his insurance (11) Insomnia: Code(s): G47.00 - Insomnia, unspecified Qualifiers: Insomnia type: unspecified Qualified Code(s): G47.00 - Insomnia, unspecified Plan: Sleep hygiene reinforced Continue Trazodone 50 mg Q HS PRN Plan To return in 6 months for his next annual physical examination Orders: Orders Lipid Panel 6 Months E78.00 - Pure hypercholesterolemia, unspecified TSH reflex Free T4 6 Months E78.00 - Pure hypercholesterolemia, unspecified Prostate Specific Antigen 6 Months N40.0 - Benign prostatic hyperplasia without lower urinary tract symptoms Comprehensive [place]. Panel Fast 6 Months E78.00 - Pure hypercholesterolemia, unspecified Complete Blood Count Auto Diff 6 Months D64.9 - Anemia, unspecified, K59.00 - Constipation, unspecified UA CC w/rflx Micro + Cult 6 Months R30.0 - Dysuria Vitamin D 25-OH Total 6 Months E55.9 - Vitamin D deficiency, unspecified Medications: Refilled cholecalciferol (vitamin D3) 50 mcg PO DAILY 90 caps 3RF 90 days E55.9 - Vitamin D deficiency, unspecified ketotifen fumarate 0.025%(0.035%) 1 drp ophthalmic (eye) BID PRN 5 mL 1RF allergy symptoms atorvastatin 10 mg PO BEDTIME 90 tabs 1RF 90 days cetirizine 10 mg PO DAILY PRN 90 tabs 3RF allergy symptoms 90 days trazodone 50 mg PO BEDTIME PRN 90 tabs 1RF insomnia 90 days meloxicam TAKE WITH FOOD AND ONLY NEEDED FOR PAIN 7.5 mg PO DAILY PRN 30 tabs 0RF pain 30 days M47.816 - Spondylosis without myelopathy or radiculopathy, lumbar region Coding Level of Care Code Est Pt Level 4 (50305) Diagnoses Pure hypercholesterolemia E78.00 Thyroid nodule E04.1 Vitamin D deficiency E55.9 Mild anemia D64.9 Seasonal allergic rhinitis due to pollen J30.1 Allergic rhinitis trigger: pollen Allergic rhinitis seasonality: seasonal Allergic conjunctivitis, unspecified laterality H10.10 Laterality: unspecified laterality Constipation, unspecified constipation type K59.00 Constipation type: unspecified constipation type Primary osteoarthritis, left shoulder M19.012 Lumbar spondylosis M47.816 Hearing loss of left ear, unspecified hearing loss type H91.92 Hearing loss type: unspecified Insomnia, unspecified type G47.00 Insomnia type: unspecified
== END 2023-10-25 10:17 | disposition home or self-care (01) ==
PROVIDERS: PCP Internal Medicine; Visit Provider Internal Medicine
DX: E78.00 Pure hypercholesterolemia, unspecified (principal); E04.1 Nontoxic single thyroid nodule; E55.9 Vitamin D deficiency, unspecified; D64.9 Anemia, unspecified; J30.1 Allergic rhinitis due to pollen; H10.10 Acute atopic conjunctivitis, unspecified eye; K59.00 Constipation, unspecified; M19.012 Primary osteoarthritis, left shoulder; M47.816 Spondylosis without myelopathy or radiculopathy, lumbar region; H91.92 Unspecified hearing loss, left ear; G47.00 Insomnia, unspecified
CPT/HCPCS: 99214

== ENCOUNTER 2023-11-28 09:02 | Outpatient (AMB) | payer OTHER, SELFPAY ==
--- NOTE | 2023-11-28 09:02 | A.OFFVIS_ITS ---
Intake Vital Signs 11/28/23 09:03 Height 5 ft 6 in Weight 155 lb 10.342 oz BMI 25.1 BP 122/78 Blood Pressure Location Lt brachial Position Sitting Pulse 61 Pulse Source Pulse Oximeter Intake Visit Reasons: f-up thyroid cancer/LVM Intake Note: Patient last seen by Dr. Cordon on 04/22/23. Patient present today for Thyroid cancer follow up visit. [employer] Required: Yes [employer] Language: Cantonese Czech [employer] Name: delgado Redd [id number] Information Interpreted: non-clinical & clinical Accompanied by: Other Relationship Allergies No Known Allergies Allergy (Verified 11/28/23 09:08) Medication List - Last Reconciled 11/28/23 by Seth Vazquez MD atorvastatin 10 mg PO BEDTIME 90 days [BATH BENCH WITH BACK As directed] [BATHTUB STEEL WHITE BAR As directed] betamethasone valerate 0.1% 1 appl topical DAILY PRN cetirizine 10 mg PO DAILY PRN 90 days cholecalciferol (vitamin D3) 50 mcg PO DAILY 90 days [CHROME GRAB BAR As directed] clobetasol 0.05% 1 appl topical BID docusate sodium (Dulcolax Stool Softener (docusate)) Take 1 to 2 capsules orally daily PRN for constipation 90 days [FOLDING ALUMINUM ROLLATOR As directed] hydrocortisone 1% 1 appl topical BID PRN 30 days ketotifen fumarate 0.025%(0.035%) 1 drp ophthalmic (eye) BID PRN meloxicam 7.5 mg PO DAILY PRN 30 days [QUAD CANE As directed] [RAISED TOILET SEAT As directed] sennosides (senna) Take 1 to 3 capsules PO daily PRN; 30 days [TOILET SAFETY FRAME As directed] [TRANSFER BENCH As directed] trazodone 50 mg PO BEDTIME PRN 90 days HPI HPI Comments History of Present Illness Details 83 YO M who is seen in F/U for a thyroid nodule. The patient last saw Dr. Cordon on 01/21/2023 Was initially diagnosed with multinodular thyroid in 2020 with thyroid US revealing a 5.8 cm L lobe thyroid nodule. He reports that the nodule appeared out of the blue in August 2021. He initially was having dysphagia, but this resolved. He denies any changes in his voice. He does report pressure in the side of the neck and head, and also tinnitis of his L ear. He underwent FNA biopsy by me 12/21/2021 of this L mid pole 5.8 cm thyroid nodule with aspiration of 11 cc of chocolate brown cystic fluid. There appeared to be a small solid component to this nodule, and FNA was attempted. However, cytology only revealed cystic fluid and no follicular cells. Repeat US of the thyroid reveals significant decrease in the size of this nodule, now appearing mostly solid. Repeat FNA of this 1.6 cm left mid pole solid nodule was performed 03/28/2023. He was unable to tolerate many passes, and thus unfortunately a nondiagnostic result was obtained. Overall he reports feeling well and denies any complaints today. Denies any symptoms of hyper or hypothyroidism TSH is at goal. Denies any history of head or neck irradiation. Denies any family history of thyroid cancer. CT Neck: 01/28/2023 FINDINGS: A 1.9 cm nodule within the anterior aspect of the left thyroid lobe is better demonstrated on the recent thyroid ultrasound. There is no significant mass effect on the trachea nor the esophagus. No retropharyngeal fluid collections. The parotid glands, the submandibular glands, and the orbital soft tissues are unremarkable. There is no cervical lymphadenopathy. No definite superficial mucosal space lesions on this noncontrast CT. The imaged lungs are well aerated. Imaged upper mediastinum is unremarkable. There is multilevel cervical spondylosis. Hypertrophic degenerative changes involving the atlantodental interval. The paranasal sinuses remain well-aerated. Left mastoid air cells are peripherally sclerotic and underpneumatized as the sequela of chronic left mastoiditis. Thyroid US: 07/20/2022 Right Thyroid Lobe: 3.9 x 1.4 x 2.0 cm, volume 5.7 mL. Previously 4.8 x 1.3 x 1.6 cm, volume 5.2 mL. Parenchyma: The gland echotexture is homogeneous. Thyroid vascularity is normal. Left Thyroid Lobe: 3.6 x 2.0 x 2.1 cm, volume 7.9 mL. Previously 6.5 x 4.0 x 4.4 cm, volume 59.8 mL. Parenchyma: The gland echotexture is homogeneous. Thyroid vascularity is normal. Isthmus: 0.4 cm in maximum AP dimension. Previously 0.3 cm. Estimated total number of nodules greater than or equal to 1 cm: 1. Palletizer Operator nodules are described as follows: 1.? Location: Left mid. ?? ? Size: 1.7 x 1.3 x 1.9 cm, volume 2.2 mL. ?? ? Previously: 5.8 x 3.7 x 5.2 cm, volume 58.7 mL. ?? ? Nodule characteristics: ?? ? Composition: Solid (2). ?? ? Echogenicity: Isoechoic (1). ?? ? Shape: Not taller than wide (0). ?? ? Margins: Smooth (0). ?? ? Echogenic Foci: None (0).? ACR TI-RADS total points: 3 Previous: 9 ?? ? ACR TI-RADS category: 3 Previous: 5 ? Significant change in size (>/= 20% in 2 dimensions and minimal increase of 2 mm or 50% or greater increase in volume): Yes ?? ? Change in features: Yes ?? ? Change in ACR TI-RADS risk category: Yes 2.? Location: Left superior. ?? ? Size: 0.4 x 0.3 x 0.4 cm, volume 0.02 mL. ?? ? Previously: Not seen on the previous study. ?? ? Nodule characteristics: ?? ? Composition: Cystic(0). ?? ? ACR TI-RADS total points: 0 ?? ? ACR TI-RADS category: 1 NODES: No lymphadenopathy is seen in the tissue surrounding the thyroid gland. Labs: Laboratory Tests 04/19/23 04/19/23 09:46 09:46 TSH 1.83 Free T4 0.95 No obstructive sx PFSH Medical History Insomnia Allergic rhinitis Vitamin D deficiency Thyroid nodule Hearing loss in left ear Constipation Thrombophlebitis Radicular pain of left lower extremity Pure hypercholesterolemia Arthritis of left hip Osteoarthritis of left knee Lumbar spondylosis Surgical History History of biopsy Family History Other No significant family history Social History Household Members: Family Housing: House Alcohol intake: never Patient Tobacco Use Status: Never used Tobacco e-Cigarette/Vaping Use: Never Used Second Hand Smoke Exposure: No service: No Current occupational status: retired Cognitive needs: No Hearing needs: No Vision needs: Yes (Glasses) Physical Exam Vital Signs: Last Vital Signs Pulse 61 11/28/23 09:03 BP 122/78 11/28/23 09:03 BMI result Body Mass Index 25.1 Const Other: Thyroid gland is normal size weighs about 15 g. There is palpable thyroid nodule at Lower pole . No adenopathy Assessment & Plan Assessment & Plan (1) Thyroid nodule: Code(s): E04.1 - Nontoxic single thyroid nodule Plan: This 83-year-old [place] male with a history of a left thyroid nodule which was partially cystic and biopsied. An attempted FNA of the solid component was nondiagnostic. Patient is clinically and biochemically euthyroid. With the help of a [employer] customer success associate, went over the options of treatment with the patient including reaspiration of the solid part versus left lobectomy versus observation. After careful conversation with daughter in law and Cantonese customer success associate , pt is opting not to rebiopsy or undergo lobectomy. He will referred back to his PCP and back to endocrinology should he change his mind . If patient is declining any further intervention, there is noted to keep repeat ultrasound unless patient becomes symptomatic Coding Level of Care Code Est Pt Level 3 (96941) Diagnoses Thyroid nodule E04.1
[2023-11-28 09:03] VITALS: BP 122/78; PULSE 61; BMI 25.1
== END 2023-11-28 09:35 | disposition home or self-care (01) ==
PROVIDERS: PCP Internal Medicine; Visit Provider Internal Medicine Endocrinology, Diabetes & Metabolism
DX: E04.1 Nontoxic single thyroid nodule (principal)
CPT/HCPCS: 99213

== ENCOUNTER → 2023-11-28 09:02 | Outpatient (BNVA) | payer OTHER, SELFPAY | PROVIDERS: PCP Internal Medicine; Visit Provider Internal Medicine Endocrinology, Diabetes & Metabolism | DX: E04.1 Nontoxic single thyroid nodule (principal) | CPT/HCPCS: 99212 ==

== ENCOUNTER 2024-04-10 10:24 | Outpatient (AMB) | payer OTHER, SELFPAY ==
[2024-04-10 10:29] VITALS: BP 122/78; PULSE 61; TEMP 36.1; O2SAT 97; BMI 24.7
--- NOTE | 2024-04-10 10:29 | MHC.OFFWIV ---
Intake Vital Signs 04/10/24 10:29 Height 5 ft 6 in Weight 153 lb BMI 24.7 BP 122/78 Blood Pressure Location Lt brachial Position Sitting Pulse 61 Pulse Source Pulse Oximeter Temp 96.9 F Temp Source Temporal Artery Scan Pulse Oximetry (%) 97 Oxygen Delivery Method Room Air Intake Visit Reasons: EP RT Foot swelling/pain Intake Note: pt is here today for rt foot swelling and pain started 2 months ago Patient Tobacco Use Status: Never used Tobacco Allergies No Known Allergies Allergy (Verified 04/10/24 11:18) Medication List - Last Reconciled 04/10/24 by Merly Montesinos CNP atorvastatin 10 mg PO BEDTIME 90 days [BATH BENCH WITH BACK As directed] [BATHTUB STEEL WHITE BAR As directed] betamethasone valerate 0.1% 1 appl topical DAILY PRN cetirizine 10 mg PO DAILY PRN 90 days cholecalciferol (vitamin D3) 50 mcg PO DAILY 90 days [CHROME GRAB BAR As directed] clobetasol 0.05% 1 appl topical BID docusate sodium (Dulcolax Stool Softener (docusate)) Take 1 to 2 capsules orally daily PRN for constipation 90 days [FOLDING ALUMINUM ROLLATOR As directed] food supplemt, lactose-reduced (Ensure Enlive) 1 ea PO TID 30 days hydrocortisone 1% 1 appl topical BID PRN 30 days ketotifen fumarate 0.025%(0.035%) 1 drp ophthalmic (eye) BID PRN lidocaine 4% 1 patch topical DAILY PRN meloxicam 7.5 mg PO DAILY PRN 30 days [QUAD CANE As directed] [RAISED TOILET SEAT As directed] sennosides (senna) Take 1 to 3 capsules PO daily PRN; 30 days [TOILET SAFETY FRAME As directed] [TRANSFER BENCH As directed] trazodone 50 mg PO BEDTIME PRN 90 days Do you need a note to return to daycare/school/sports/work: Yes HPI HPI Comments History of Present Illness Details 83-year-old male presents to walk-in clinic for complaint of atraumatic right foot pain and swelling x2 months. According to patient's grandson who was used for translation patient has been having pain in right foot for two years, he goes to a pediatrist but all he does is gives him injections. Patient reports last 2 months right foot with redness and swelling, especially 4th digit toe hurts to touch, he denies numbness, tingling, fever, chills, CP, SOB, nausea, vomiting, abdominal pain, changes in bowels or bladder, and denies known hx of gout [facility] Medical History Insomnia Allergic rhinitis Vitamin D deficiency Thyroid nodule Hearing loss in left ear Constipation Thrombophlebitis Radicular pain of left lower extremity Pure hypercholesterolemia Arthritis of left hip Osteoarthritis of left knee Lumbar spondylosis Surgical History History of biopsy Family History Other No significant family history Social History Household Members: Family Housing: House Alcohol intake: never Patient Tobacco Use Status: Never used Tobacco e-Cigarette/Vaping Use: Never Used Second Hand Smoke Exposure: No service: No Current occupational status: retired Cognitive needs: No Hearing needs: No Vision needs: Yes (Glasses) Review of Systems Const All systems reviewed & are unremarkable except as noted in HPI and below Physical Exam Vital Signs: Last Vital Signs Temp 96.9 F 04/10/24 10:29 Pulse 61 04/10/24 10:29 BP 122/78 04/10/24 10:29 Pulse Ox 97 04/10/24 10:29 Oxygen Delivery Method Room Air 04/10/24 10:29 BMI result Body Mass Index 24.7 Const General: healthy appearing and no acute distress Nutritional Appearance: well nourished Orientation/consciousness: patient oriented x3 Limitations: no limitations HEENT Head: Yes normal to inspection Ears: hearing grossly normal bilaterally Mouth: moist mucous membranes Chest Chest palpation & inspection: normal inspection of the chest Resp Effort & Inspection: normal respiratory effort, no cough, no respiratory distress and not tachypneic Auscultation: clear to auscultation bilaterally, no crackles, no rhonchi and no wheezes Cardio Rate: regular rate Rhythm: regular rhythm Heart sounds: S1 normal heart sound present and S2 normal heart sound present GI Palpation (GI): Soft to palpation and nontender Auscultation: normal bowel sounds General: Yes no CVA tenderness Back/Spine/Pelvis Back: no CVA tenderness Neuro General: patient oriented x3 Extrem Right lower extremity: foot Details: normal capillary refill and tenderness (anterior dorsal foot w/ slight erythema, +1 edema, slight warmth) Location: of another digit (anterior dorsal foot slight erythema, +1 edema, slight warmth) Location: the 4th digit Psych Appearance: well kempt Mental Status: mental status grossly normal Speech and movement: Normal speech and movement present Affect: normal affect Attitude: cooperative Assessment & Plan Assessment & Plan (1) Cellulitis and abscess of left leg: Code(s): L03.116 - Cellulitis of left lower limb; L02.416 - Cutaneous abscess of left lower limb Plan: Physical examination with discomfort with touch and range of motion of left foot with slight errythema, edema and warmth Plan at this time is to obtain the imaging. Likely arthritis, I do not suspect septic joint, there could be overlying cellulitis therefore he will be given antibiotics for this, and 5 day dose of prednisone. Advised patient to follow-up with PCP and to follow-up with orthopedics as necessary. (2) Arthritis of right foot: Onset Date: ~04/10/24 Code(s): M19.071 - Primary osteoarthritis, right ankle and foot Plan: Will f/u with PCP for referral to orthopedics for bone spur right calcaneus Medications: New prednisone 20 mg PO BID 10 tabs 0RF 5 days cefuroxime axetil 500 mg PO BID 14 tabs 0RF 7 days M19.071 - Primary osteoarthritis, right ankle and foot Coding Level of Care Code Est Pt Level 4 (06572) Diagnoses Cellulitis and abscess of left leg L03.116; L02.416 Arthritis of right foot M19.071
== END 2024-04-10 12:57 | disposition home or self-care (01) ==
PROVIDERS: PCP Internal Medicine; Visit Provider Nurse Practitioner Acute Care
DX: L03.116 Cellulitis of left lower limb (principal); L02.416 Cutaneous abscess of left lower limb; M19.071 Primary osteoarthritis, right ankle and foot
CPT/HCPCS: 99214

== ENCOUNTER 2024-04-10 11:29 | Outpatient (REF) | payer OTHER, SELFPAY ==
--- NOTE | ~2024-04-10 | XR_ITS ---
EXAMINATION: XR FOOT, RIGHT CLINICAL INFORMATION: Pain in right foot for 2 months COMPARISON: None available. TECHNIQUE: AP, lateral, and oblique views of the right foot. FINDINGS: There is no evidence of fractures or osseous destruction no significant changes of osteoarthritis. There is plantar calcaneal spurring. Soft tissues unremarkable. XR/XR foot RT min 3V IMPRESSION: Plantar calcaneal spur.
== END 2024-04-10 11:30 | disposition home or self-care (01) ==
LOC: HO.HMGCX 11:29
PROVIDERS: PCP Internal Medicine; Visit Provider Nurse Practitioner Acute Care
DX: M19.071 Primary osteoarthritis, right ankle and foot (principal)
CPT/HCPCS: 73630

== ENCOUNTER 2024-04-24 09:39 | Outpatient (REF) | payer OTHER, SELFPAY ==
[2024-04-24 13:13] LABS: Appearance Urine Clear; Color Urine Yellow; Glucose Urine UA Negative (Negative); Leukocyte Esterase Urine Negative (Negative); Nitrite Urine Negative (Negative); PH 7.5 (5.0-9.0); Urine Blood Negative (Negative); Urine Ketones Negative (Negative); Urine Protein Negative (Neg-Trace)
[2024-04-24 13:14] LABS: MANUAL DIFF FLAG NO
[2024-04-24 13:20] LABS: Basophils Absolute Auto 0.1 X10*3/uL (0.0-0.2); Eosinophils Absolute Auto 0.3 X10*3/uL (0.0-0.4); Eosinophils Percent Auto 5.5 % (0-4); Hematocrit 42.1 % (42.0-52.0); Hemoglobin 13.8 g/dl (14.0-18.0); Imm Gran Abs Auto 0.02 X10*3/uL (0.00-0.03); Imm Gran Pct Auto 0.4 % (0.0-0.4); Lymphocytes Absolute Auto 1.1 X10*3/uL (1.2-4.9); Lymphocytes Percent Auto 22.9 % (20-40); Mean Corpuscular HGB Conc 32.8 g/dl (31.0-36.0); Mean Corpuscular Hemoglobin 31.4 pg (27.0-33.0); Mean Corpuscular Volume 95.7 fL (80.0-98.0); Mean Platelet Volume 10.2 fL (9.4-12.4); Monocytes Absolute Auto 0.5 X10*3/uL (0.1-1.2); Monocytes Percent Auto 11.3 % (2-11); Neutrophils Absolute Auto 2.8 x10*3/uL (2.0-8.3); Neutrophils Percent Auto 58.9 % (45-73); Platelet Count 128 X10*3/uL (160-400); Red Cell Distribution Width 12.8 % (11.0-16.0); White Blood Count 4.8 X10*3/uL (4.8-10.8)
[2024-04-24 14:09] LABS: Alanine Aminotransferase 13 U/L (0-40); Albumin Level 3.7 g/dL (3.5-5.0); Alkaline Phosphatase 55 U/L (39-117); Anion Gap 11 (12-20); Aspartate Amino Transferase 20 U/L (5-37); Bilirubin Total 0.8 mg/dL (0.0-1.0); Blood Urea Nitrogen 20 mg/dL (9-16); Calcium 8.8 mg/dL (8.4-10.2); Carbon Dioxide 27 mmol/L (22-29); Chloride 109 mmol/L (96-108); Cholesterol 162 mg/dL (<200); Estimated Glomerular Filt Rate > 60; Glucose Fasting 98 mg/dL (60-99); HDL Cholesterol 47 mg/dL (>40); LDL Cholesterol Calculated 87 mg/dL (<100); Potassium 4.8 mmol/L (3.3-5.1); Sodium 142 mmol/L (135-145); Total Protein 6.8 g/dL (6.5-8.0); Triglycerides 144 mg/dL (<150)
[2024-04-24 14:11] LABS: Prostate Specific Antigen 2.25 ng/mL (<0.05-4.0)
[2024-04-24 14:27] LABS: TSH reflex Free T4 1.65 uIU/mL (0.32-4.0); Vitamin D 25-OH Total 48.3 ng/mL (>30)
== END 2024-04-24 09:40 | disposition home or self-care (01) ==
LOC: HO.HMGCLDS 09:39
PROVIDERS: PCP Internal Medicine; Visit Provider Internal Medicine
DX: E78.00 Pure hypercholesterolemia, unspecified (principal); E55.9 Vitamin D deficiency, unspecified; R30.0 Dysuria; N40.0 Benign prostatic hyperplasia without lower urinary tract symptoms; D64.9 Anemia, unspecified; K59.00 Constipation, unspecified; Z12.5 Encounter for screening for malignant neoplasm of prostate
CPT/HCPCS: 36415; 80053; 80061; 81003; 82306; 84153; 84443; 85025

== ENCOUNTER 2024-04-30 09:04 | Outpatient (AMB) | payer MEDICARE, SELFPAY ==
--- NOTE | 2024-04-30 09:12 | A.OFFPC_ITS ---
Vital Signs 04/30/24 09:15 Height 5 ft 6 in Weight 149 lb 6 oz BMI 24.1 BP 100/70 Blood Pressure Location Lt brachial Position Sitting Pulse 56 Pulse Source Pulse Oximeter Pulse Oximetry (%) 99 Oxygen Delivery Method Room Air Intake Visit Reasons: Annual Exam - see comments Intake Note: Patient is here today for a physical. Tobacco Stripping Machine Operator Required: Yes Tobacco Stripping Machine Operator Language: Cantonese Turkmen Tobacco Stripping Machine Operator Name: Roger (remi) Information Interpreted: non-clinical & clinical Inter Fold Roll Cutter: Present Accompanied by: Grand Child Allergies No Known Allergies Allergy (Verified 04/30/24 09:43) Medication List - Last Reconciled 04/30/24 by Davidson Glaser MD atorvastatin 10 mg PO BEDTIME 90 days [BATH BENCH WITH BACK As directed] [BATHTUB STEEL WHITE BAR As directed] betamethasone valerate 0.1% 1 appl topical DAILY PRN cetirizine 10 mg PO DAILY PRN 90 days cholecalciferol (vitamin D3) 50 mcg PO DAILY 90 days [CHROME GRAB BAR As directed] clobetasol 0.05% 1 appl topical BID docusate sodium (Dulcolax Stool Softener (docusate)) Take 1 to 2 capsules orally daily PRN for constipation 90 days [FOLDING ALUMINUM ROLLATOR As directed] food supplemt, lactose-reduced (Ensure Enlive) 1 ea PO TID 30 days hydrocortisone 1% 1 appl topical BID PRN 30 days ketotifen fumarate 0.025%(0.035%) 1 drp ophthalmic (eye) BID PRN lidocaine 4% 1 patch topical DAILY PRN meloxicam 7.5 mg PO DAILY PRN 30 days [QUAD CANE As directed] [RAISED TOILET SEAT As directed] sennosides (senna) Take 1 to 3 capsules PO daily PRN; 30 days [TOILET SAFETY FRAME As directed] [TRANSFER BENCH As directed] trazodone 50 mg PO BEDTIME PRN 90 days Tobacco use date assessed: 04/30/24 Fall risk assessment: No Falls in past year Last assessed Fall Risk: 04/30/24 Dental Screening Dental Screen Date: 04/30/24 Did you have a dental visit in the last 12 months?: Yes Did you have a dental problem in the last 6 months where you did not have access to dental care?: No Was dental information given to patient?: Patient has dentist HPI Annual Exam - see comments HPI Details Patient comes in today for his annual physical examination States that he currently feels okay He denies any headaches or dizziness Denies any chest pains, no SOB No nausea/vomiting, no abdominal pain No change in bowel habits noted He denies any acute urinary symptoms Adds that he is still experiencing frequent pain over his right heel area and feels that this has been flaring up often again lately He used to see podiatry (Dr. Moya) and states that he has received a couple of injections into his heel area with little relief and does not wish to go back to see Dr. Moya Needs a couple of his Rx refilled Had his follow up labs done last week - to discuss his results Relates that he had his last colonoscopy done sometime around 2013 in [place] and recalls being advised that his test came out normal at the time [facility] Medical History (Updated 04/30/24 @ 09:53 by Davidson Glaser MD) Insomnia Allergic rhinitis Vitamin D deficiency Thyroid nodule Hearing loss in left ear Constipation Thrombophlebitis Radicular pain of left lower extremity Pure hypercholesterolemia Arthritis of left hip Osteoarthritis of left knee Lumbar spondylosis Surgical History (Updated 04/30/24 @ 09:58 by Davidson Glaser MD) Hx of colonoscopy History of biopsy Family History Other No significant family history Social History Household Members: Family Housing: House Alcohol intake: never Patient Tobacco Use Status: Never used Tobacco e-Cigarette/Vaping Use: Never Used Second Hand Smoke Exposure: No service: No Current occupational status: retired Cognitive needs: No Hearing needs: No Vision needs: Yes (Glasses) Questionnaire PHQ-9 Over the last 2 weeks, how often have you been bothered by any of the following problems? 1. Little interest or pleasure in doing things: not at all 2. Feeling down, depressed, or hopeless: not at all 3. Trouble falling or staying asleep, or sleeping too much: not at all 4. Feeling tired or having little energy: not at all 5. Poor appetite or overeating: not at all 6. Feeling bad about yourself - or that you are a failure or have let yourself or your family down: not at all 7. Trouble concentrating on things, such as reading the newspaper or watching television: not at all 8. Moving or speaking so slowly that other people could have noticed. Or the opposite - being so fidgety or restless that you have been moving around a lot more than usual: not at all 9. Thoughts that you would be better off or of hurting yourself in some way: not at all Total score: 0 Depression Screening Interpretation: Negative Depression Screening Done: Yes 63802 - PHQ-9 Billing: Yes Source: Developed by Drs. Seth Yu, Merary Reaves, Jn Vogel and colleagues, with an educational joe from [employer]. Thrive Questionnaire Date Thrive assessed: 04/30/24 I am a: Patient What is your living situation today?: I have a steady place to live Within the past 12 months, did the food you bought not last and you didn't have the money to get more?: Never true Within the past 12 months, did you worry whether your food would run out before you got money to buy more?: Never true Do you have trouble paying for medicines?: No Do you have trouble getting transportation to medical appointments?: No Do you have trouble paying your heating and electricity bill?: No Do you have trouble taking care of your child, family member or friend?: No Do you have trouble with day-to-day activities such as bathing, preparing meals, shopping, managing finances, etc.?: No Are you currently unemployed and looking for a job?: No Are you interested in more education?: No Currently or been in a relationship where the following occur: No concerns reported THRIVE Score: 0 AUDIT C Alcohol Use Questionnaire (AUDIT-C) 1. How often do you have a drink containing alcohol?: Never 3. How often do you have six or more drinks on one occasion?: Never Total Score: 0 Score Reviewed/Action Taken: Yes SANTI-7 AMB Questionnaire SANTI-7 Date SANTI - 7 assessed: 04/30/24 Feeling nervous, anxious, or on edge: 0 = Not at all Not being able to stop or control worryin = Not at all Worrying too much about different things: 0 = Not at all Trouble relaxin = Not at all Being so restless that it is hard to sit still: 0 = Not at all Becoming easily annoyed or irritable: 0 = Not at all Feeling afraid as if something awful might happen: 0 = Not at all Total SANTI-7 score (0-4 normal; 5-9 mild; 10-14 moderate; 15-21 severe): 0 Source: Developed by Drs. Seth Yu, Merary Reaves, Jn Vogel and colleagues, with an educational joe from [employer]. Review of Systems Const Denies chills, Denies fatigue, Denies fever(s), Denies headache(s), Denies malaise and Denies weakness Eyes Denies blurry vision, Denies change in vision, Denies irritation and Denies itchy eyes ENT Denies dysphagia, Denies dizziness, Denies otalgia, Denies headache(s), Denies nasal congestion, Denies neck pain, Denies odynophagia and Denies sore throat Card Denies chest pain, Denies rapid heart rate, Denies irregular heart rhythm, Denies palpitations and Denies dyspnea Resp Denies chest congestion, Denies cough, Denies dyspnea and Denies wheezing GI Denies abdominal pain, Denies bloating, Denies constipation, Denies dysphagia, Denies heartburn, Denies diarrhea, Denies nausea, Denies odynophagia and Denies vomiting Denies hematuria, Denies difficulty urinating, Denies dysuria, Denies urinary frequency and Denies urinary urgency Musc Details: (+) recurrent right heel pain - feels that this has been flaring up more often lately Reports back pain (over the lower back, on and off), Denies arthralgias, Denies joint swelling, Denies muscle weakness and Denies neck pain Skin/Breast Denies change in pigmentation, Denies lesions, Denies rash and Denies unusual bruising Neuro Denies dizziness, Denies headache(s), Denies paresthesias and Denies weakness Endo Denies fatigue and Denies palpitations Aller/Immun Denies itchy eyes and Denies wheezing Physical exam (Primary Care) Vital Signs: Last Vital Signs Pulse 56 04/30/24 09:15 BP 100/70 04/30/24 09:15 Pulse Ox 99 04/30/24 09:15 Oxygen Delivery Method Room Air 04/30/24 09:15 BMI result Body Mass Index 24.1 Tobacco/Smoking Status: Tobacco use Status Tobacco use date assessed 04/30/24 04/30/24 09:21 Patient Tobacco Use Status Never used Tobacco 04/30/24 09:21 e-Cigarette/Vaping Use Never Used 04/30/24 09:21 PHQ-9: PHQ-9 Score PHQ-9: Total score 0 04/30/24 09:45 Depression Screening Interpretation: Negative Thrive Assessment: Date of Thrive Assessment Date Thrive assessed 04/30/24 04/30/24 09:21 Currently or been in a relationship where the following occur: No concerns reported Const General: no acute distress, alert and awake Orientation/consciousness: patient oriented x3 HENMT Head: Yes normocephalic and Yes atraumatic Ears: external ears normal, TM's normal bilaterally and EAC's normal General nose exam: No nasal discharge present Face and sinus: Yes normal facial exam and Yes sinuses nontender Teeth and gingiva: dentition normal Throat: Yes posterior oropharynx normal and Yes tonsils normal (no TP congestion) Eyes Eyelids: Yes eyelids normal Conjunctivae: conjunctivae normal Pupils: Equal, round and reactive pupils present EOM: EOMs intact bilaterally Neck Neck: Yes no lymphadenopathy and Yes supple Thyroid: Thyroid normal Resp Auscultation: clear to auscultation bilaterally, no rales and no wheezes Cardio Rate: regular rate Rhythm: regular rhythm Heart sounds: no murmurs GI Palpation (GI): Soft to palpation, nontender and No hepatosplenomegaly present Auscultation: normal bowel sounds General: Yes no CVA tenderness Back/Spine/Pelvis Back: no CVA tenderness Thoracic/Lumbar Spine: lumbar spinal tenderness (mild) Skin Lesions: no lesions Rashes: no rashes Neuro General: patient oriented x3, moves all extremities, no focal motor deficits and CN's II-XI intact bilaterally Cranial nerves: Yes Equal, round and reactive pupils present Cognition (Neuro): normal cognition Gait exam (Neuro): Normal gait present Extrem General: Yes no clubbing, cyanosis or edema Right lower extremity: foot Details: tenderness Location: of the calcaneus Results Reviewed Results Reviewed: Laboratory Tests 04/24/24 04/24/24 09:44 09:50 WBC 4.8 Hgb 13.8 L Hct 42.1 Plt Count 128 L Sodium 142 Potassium 4.8 Creatinine 1.06 Estimated GFR > 60 Fasting Glucose 98 Calcium 8.8 AST 20 ALT 13 Triglycerides 144 Cholesterol 162 LDL Cholesterol, Calc 87 HDL Cholesterol 47 Prostate Specific Ag 2.25 TSH 1.65 Ur Specific [place] 1.020 Urine Protein Negative Urine Glucose (UA) Negative Urine Blood Negative Urine Nitrite Negative Ur Leukocyte Esterase Negative Laboratory Tests 04/24/24 09:44 25-OH Vitamin D Total 48.3 Assessment and Plan Assessment & Plan (1) Annual physical exam: Code(s): Z00.00 - Encounter for general adult medical examination without abnormal findings Plan: Results of his labs done last week reviewed and discussed with patient (2) Pure hypercholesterolemia: Code(s): E78.00 - Pure hypercholesterolemia, unspecified Plan: Reinforced low-cholesterol diet Continue Atorvastatin 10 mg QD Will recheck his labs and fasting lipids in 6 months for follow-up (3) Thyroid nodule: Code(s): E04.1 - Nontoxic single thyroid nodule Plan: Patient was initially diagnosed in 2020 S/P FNA Bx in 12/2021 - pathology came out benign Repeat thyroid US done last year showed (+) significant decrease in the size of the previous left thyroid cyst - he has been advised that he may need to consider either ablation or resection if thyroid nodule recurs Had repeat FNA done last year (March 2023) - aspirate was non-diagnostic on pathology as patient was reportedly unable to tolerate multiple passes during the biopsy process Patient was advised option of repeat FNA but he declined as he felt that the procedure was too painful to undergo again He did agree to a repeat thyroid US in 6 months for follow up and will think about repeat FNA only if repeat imaging shows any concerning changes in his thyroid Repeat thyroid US done in September 2023 revealed (+) 1.6 cm mid left thyroid lobe with increased vascularity - recommended FNA Bx but patient remains adamant that he does not want another Bx He was seen by Dr. Vazquez on 11/28/2023 for endocrinology follow up and as patient is not interested in any further intervention, was returned to the care of his PCP Was advised that we can refer him back for any changes in his condition or situation and we can just continue surveillance with yearly thyroid ultrasound at this time - will repeat his thyroid US in 6 months (4) Vitamin D deficiency: Code(s): E55.9 - Vitamin D deficiency, unspecified Plan: Continue Vitamin D3 2000 units QD (5) Mild anemia: Code(s): D64.9 - Anemia, unspecified Plan: This was corrected on his previous labs but he is now again slightly anemic, with H/H at 13.8/42.1% IFT and B12 level done with his previous labs all came back normal Will continue to monitor his CBC regularly (6) Allergic rhinitis: Code(s): J30.9 - Allergic rhinitis, unspecified Qualifiers: Allergic rhinitis seasonality: seasonal Allergic rhinitis trigger: pollen Qualified Code(s): J30.1 - Allergic rhinitis due to pollen Plan: Continue Fluticasone 50 mcg nasal spray BID PRN and Cetirizine 10 mg QD PRN (Rx refilled) (7) Allergic conjunctivitis: Code(s): H10.10 - Acute atopic conjunctivitis, unspecified eye Qualifiers: Laterality: unspecified laterality Qualified Code(s): H10.10 - Acute atopic conjunctivitis, unspecified eye Plan: Continue Ketotifen 0.025% eye drops BID PRN - Rx refilled (8) Constipation: Code(s): K59.00 - Constipation, unspecified Qualifiers: Constipation type: unspecified constipation type Qualified Code(s): K5 9.00 - Constipation, unspecified Plan: Encouraged again on increased oral fluids and dietary fiber Continue Docusate 100 mg 1 to 2 capsules QD PRN (9) Primary osteoarthritis, left shoulder: Code(s): M19.012 - Primary osteoarthritis, left shoulder Plan: Left shoulder x-rays done in July 2022 revealed (+) mild to moderate glenohumeral osteoarthritis Patient reports (+) symptomatic improvement with cortisone injection from orthop edics Follow up with orthopedics as scheduled (10) Lumbar spondylosis: Code(s): M47.816 - Spondylosis without myelopathy or radiculopathy, lumbar region Plan: Reinforced activity and weight lifting restrictions to avoid aggravating his low back pain (11) Calcaneal spur of right foot: Code(s): M77.31 - Calcaneal spur, right foot Plan: States that this has been flaring up more often lately Right heel x-rays done a few weeks ago on 04/10/24 revealed (+) plantar calcaneal spur Patient used to see podiatry (Dr. Moya) in the past and has received a couple of injections into his heel area with little relief - states that he does not wish to go back to see Dr. Moya Will try referring him to [facility] at their [place] office instead to see if they have any other alternative solutions or recommendations for patient regarding his heel spur(s) (12) Hearing loss in left ear: Code(s): H91.92 - Unspecified hearing loss, left ear Qualifiers: Hearing loss type: unspecified Qualified Code(s): H91.92 - Unspecified hearing loss, left ear Plan: Reports that he still experiences frequent tinnitus in his left ear Have discussed with patient previously ways to help manage his tinnitus and have advised him that there is really no cure for hearing loss He has declined being referred to and seeing a hearing aid mechanic for fitting of hearing aids as he does not like to wear them and they are not really covered by his insurance (13) Insomnia: Code(s): G47.00 - Insomnia, unspecified Qualifiers: Insomnia type: unspecified Qualified Code(s): G47.00 - Insomnia, unspecified Plan: Sleep hygiene reinforced Continue Trazodone 50 mg Q HS PRN Plan Follow up in 6 months Orders: Orders Comprehensive [place]. Panel Fast 6 Months E78.00 - Pure hypercholesterolemia, un specified Lipid Panel 6 Months E78.00 - Pure hypercholesterolemia, unspecified UA CC w/rflx Micro + Cult 6 Months R30.0 - Dysuria Vitamin B12 and Folate 6 Months E53.8 - Deficiency of other specified B group vitamins Complete Blood Count Auto Diff 6 Months D64.9 - Anemia, unspecified Referrals Podiatry Referral M77.31 - Calcaneal spur, right foot Medications: Refilled ketotifen fumarate 0.025%(0.035%) 1 drp ophthalmic (eye) BID PRN 5 mL 1RF allergy symptoms cetirizine 10 mg PO DAILY 90 days PRN 90 tabs 3RF allergy symptoms Coding Level of Care Code Est Pt Prev Care >65y(54165) Diagnoses Annual physical exam Z00.00 Pure hypercholesterolemia E78.00 Thyroid nodule E04.1 Vitamin D deficiency E55.9 Mild anemia D64.9 Seasonal allergic rhinitis due to pollen J30.1 Allergic rhinitis seasonality: seasonal Allergic rhinitis trigger: pollen Allergic conjunctivitis, unspecified laterality H10.10 Laterality: unspecified laterality Constipation, unspecified constipation type K59.00 Constipation type: unspecified constipation type Primary osteoarthritis, left shoulder M19.012 Lumbar spondylosis M47.816 Calcaneal spur of right foot M77.31 Hearing loss of left ear, unspecified hearing loss type H91.92 Hearing loss type: unspecified Insomnia, unspecified type G47.00 Insomnia type: unspecified
[2024-04-30 09:15] VITALS: BP 100/70; PULSE 56; O2SAT 99; BMI 24.1
== END 2024-04-30 10:01 | disposition home or self-care (01) ==
PROVIDERS: PCP Internal Medicine; Visit Provider Internal Medicine
DX: Z00.00 Encounter for general adult medical examination without abnormal findings (principal); E78.00 Pure hypercholesterolemia, unspecified; E04.1 Nontoxic single thyroid nodule; E55.9 Vitamin D deficiency, unspecified; D64.9 Anemia, unspecified; J30.1 Allergic rhinitis due to pollen; H10.10 Acute atopic conjunctivitis, unspecified eye; K59.00 Constipation, unspecified; M19.012 Primary osteoarthritis, left shoulder; M47.816 Spondylosis without myelopathy or radiculopathy, lumbar region; M77.31 Calcaneal spur, right foot; H91.92 Unspecified hearing loss, left ear; G47.00 Insomnia, unspecified
CPT/HCPCS: 99397

== ENCOUNTER 2024-10-30 09:59 | Outpatient (AMB) | payer OTHER, SELFPAY ==
[2024-10-30 10:01] VITALS: BP 140/82; PULSE 62; O2SAT 97; BMI 25.0
--- NOTE | 2024-10-30 10:01 | A.OFFPC_ITS ---
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 Accompanied by: Son Allergies No Known Allergies Allergy (Verified 10/30/24 10:31) Medication List - Last Reconciled 10/30/24 by Davidson Glaser MD atorvastatin 10 mg PO BEDTIME 90 days [BATH BENCH WITH BACK As directed] [BATHTUB STEEL WHITE BAR As directed] betamethasone valerate 0.1% 1 appl topical DAILY PRN cetirizine 10 mg PO DAILY PRN 90 days cholecalciferol (vitamin D3) 50 mcg PO DAILY 90 days [CHROME GRAB BAR As directed] clobetasol 0.05% 1 appl topical BID docusate sodium (Dulcolax Stool Softener (docusate)) Take 1 to 2 capsules orally daily PRN for constipation 90 days [FOLDING ALUMINUM ROLLATOR As directed] food supplemt, lactose-reduced (Ensure Enlive) 1 ea PO TID 30 days hydrocortisone 1% 1 appl topical BID PRN 30 days ketotifen fumarate 0.025%(0.035%) 1 drp ophthalmic (eye) BID PRN lidocaine 4% 1 patch topical DAILY PRN meloxicam 7.5 mg PO DAILY PRN 30 days [QUAD CANE As directed] [RAISED TOILET SEAT As directed] sennosides (senna) Take 1 to 3 capsules PO daily PRN; 30 days [TOILET SAFETY FRAME As directed] [TRANSFER BENCH As directed] trazodone 50 mg PO BEDTIME PRN 90 days Tobacco use date assessed: 10/30/24 Fall risk assessment: No Falls in past year Last assessed Fall Risk: 10/30/24 Dental Screening Dental Screen Date: 10/30/24 Did you have a dental visit in the last 12 months?: No Did you have a dental problem in the last 6 months where you did not have access to dental care?: No Was dental information given to patient?: No HPI 6 Month F/U - see comments HPI Details Patient comes in today for his follow-up visit States that he feels okay He denies any headaches or dizziness Denies any chest pains, no SOB No nausea/vomiting, no abdominal pain Reports that he has been experiencing increased constipation lately and would like to get his prescription for stool softener refilled Also needs his Fluticasone nasal spray Rx refilled today He was not able to get his follow-up labs done prior to his appointment today FORMERLY [facility], [facility] Medical History Insomnia Allergic rhinitis Vitamin D deficiency Thyroid nodule Hearing loss in left ear Constipation Thrombophlebitis Radicular pain of left lower extremity Pure hypercholesterolemia Arthritis of left hip Osteoarthritis of left knee Lumbar spondylosis Surgical History Hx of colonoscopy History of biopsy Family History Other No significant family history Social History Household Members: Family Housing: House Alcohol intake: never Patient Tobacco Use Status: Never used Tobacco e-Cigarette/Vaping Use: Never Used Second Hand Smoke Exposure: No service: No Current occupational status: retired Cognitive needs: No Hearing needs: No Vision needs: Yes (Glasses) Questionnaire PHQ-9 Over the last 2 weeks, how often have you been bothered by any of the following problems? 1. Little interest or pleasure in doing things: not at all 2. Feeling down, depressed, or hopeless: not at all 3. Trouble falling or staying asleep, or sleeping too much: not at all 4. Feeling tired or having little energy: not at all 5. Poor appetite or overeating: not at all 6. Feeling bad about yourself - or that you are a failure or have let yourself or your family down: not at all 7. Trouble concentrating on things, such as reading the newspaper or watching television: not at all 8. Moving or speaking so slowly that other people could have noticed. Or the opposite - being so fidgety or restless that you have been moving around a lot more than usual: not at all 9. Thoughts that you would be better off or of hurting yourself in some way: not at all Total score: 0 Depression Screening Interpretation: Negative Depression Screening Done: Yes 47466 - PHQ-9 Billing: Yes Source: Developed by Drs. Seth uY, Merary Reaves, Jn Vogel and colleagues, with an educational joe from [employer]. Thrive Questionnaire Date Thrive assessed: 10/30/24 I am a: Patient What is your living situation today?: I have a steady place to live Within the past 12 months, did the food you bought not last and you didn't have the money to get more?: Never true Within the past 12 months, did you worry whether your food would run out before you got money to buy more?: Never true Do you have trouble paying for medicines?: No Do you have trouble getting transportation to medical appointments?: No Do you have trouble paying your heating and electricity bill?: No Do you have trouble taking care of your child, family member or friend?: No Do you have trouble with day-to-day activities such as bathing, preparing meals, shopping, managing finances, etc.?: No Are you currently unemployed and looking for a job?: No Are you interested in more education?: No Please select the resources that you would like help with: None Currently or been in a relationship where the following occur: No concerns reported THRIVE Score: 0 AUDIT C Alcohol Use Questionnaire (AUDIT-C) 1. How often do you have a drink containing alcohol?: Never 3. How often do you have six or more drinks on one occasion?: Never Total Score: 0 Score Reviewed/Action Taken: Yes SANTI-7 AMB Questionnaire SANTI-7 Date SANTI - 7 assessed: 10/30/24 Feeling nervous, anxious, or on edge: 0 = Not at all Not being able to stop or control worryin = Not at all Worrying too much about different things: 0 = Not at all Trouble relaxin = Not at all Being so restless that it is hard to sit still: 0 = Not at all Becoming easily annoyed or irritable: 0 = Not at all Feeling afraid as if something awful might happen: 0 = Not at all Total SANTI-7 score (0-4 normal; 5-9 mild; 10-14 moderate; 15-21 severe): 0 Source: Developed by Merary Ballesteros B.W. Jean Paul, Jn Vogel and colleagues, with an educational joe from [employer]. Review of Systems Const Denies chills, Denies fatigue, Denies fever(s) and Denies headache(s) ENT Denies dysphagia, Denies dizziness, Denies otalgia, Denies headache(s), Denies neck pain, Denies odynophagia and Denies sore throat Card Denies chest pain, Denies irregular heart rhythm, Denies palpitations and Denies dyspnea Resp Denies chest congestion, Denies cough and Denies dyspnea GI Denies abdominal pain, Reports constipation (increasing lately), Denies dysphagia, Denies heartburn, Denies diarrhea, Denies nausea, Denies odynophagia and Denies vomiting Denies difficulty urinating, Denies dysuria and Denies urinary frequency Musc Details: (+) recurrent mild right heel pain Reports back pain (over the lower back, on and off), Denies arthralgias and Denies neck pain Skin/Breast Denies rash Neuro Denies dizziness, Denies headache(s) and Denies paresthesias Endo Denies fatigue and Denies palpitations Physical exam (Primary Care) Vital Signs: Last Vital Signs Pulse 62 10/30/24 10:01 BP 124/78 10/30/24 10:34 Pulse Ox 97 10/30/24 10:01 Oxygen Delivery Method Room Air 10/30/24 10:01 BMI result Body Mass Index 25.0 Tobacco/Smoking Status: Tobacco use Status Tobacco use date assessed 10/30/24 10/30/24 10:06 Patient Tobacco Use Status Never used Tobacco 10/30/24 10:06 e-Cigarette/Vaping Use Never Used 10/30/24 10:06 PHQ-9: PHQ-9 Score PHQ-9: Total score 0 10/30/24 10:32 Depression Screening Interpretation: Negative Thrive Assessment: Date of Thrive Assessment Date Thrive assessed 10/30/24 10/30/24 10:06 Currently or been in a relationship where the following occur: No concerns reported Const General: no acute distress and alert HENMT Ears: TM's normal bilaterally and EAC's normal Throat: Yes posterior oropharynx normal and Yes tonsils normal (no TP congestion) Neck Neck: Yes no lymphadenopathy and Yes supple Thyroid: Thyroid normal Resp Auscultation: clear to auscultation bilaterally, no rales and no wheezes Cardio Rate: regular rate Rhythm: regular rhythm Heart sounds: no murmurs GI Palpation (GI): Soft to palpation and nontender Auscultation: normal bowel sounds General: Yes no CVA tenderness Back/Spine/Pelvis Back: no CVA tenderness Thoracic/Lumbar Spine: lumbar spinal tenderness (mild) Skin Rashes: no rashes Extrem General: Yes no clubbing, cyanosis or edema Right lower extremity: foot Details: tenderness Location: of the calcaneus Coding Level of Care Code Est Pt Level 4 (63513) Diagnoses Pure hypercholesterolemia E78.00 Thyroid nodule E04.1 Vitamin D deficiency E55.9 Mild anemia D64.9 Seasonal allergic rhinitis due to pollen J30.1 Allergic rhinitis trigger: pollen Allergic rhinitis seasonality: seasonal Constipation, unspecified constipation type K59.00 Constipation type: unspecified constipation type Primary osteoarthritis, left shoulder M19.012 Lumbar spondylosis M47.816 Calcaneal spur of right foot M77.31 Hearing loss of left ear, unspecified hearing loss type H91.92 Hearing loss type: unspecified Insomnia, unspecified type G47.00 Insomnia type: unspecified Additional Codes PHQ-9 - 27204 - PHQ-9 Billing: Yes ([id number]) Assessment & Plan Assessment & Plan (1) Pure hypercholesterolemia: Code(s): E78.00 - Pure hypercholesterolemia, unspecified Category: Medical Plan: Patient was not able to get his previously ordered follow up labs done prior to her appointment today As his cholesterol numbers were well-controlled when they were last checked in April 2024, will hold off on having him get his labs done at this time Reinforced low cholesterol diet Continue Atorvastatin 10 mg QD Will have him recheck his labs and fasting lipids in 6 months for follow up - will just have him use his current orders (updated) for his next lab draw (2) Thyroid nodule: Code(s): E04.1 - Nontoxic single thyroid nodule Category: Medical Plan: Patient was initially diagnosed in 2020 S/P FNA Bx in 12/2021 - pathology came out benign Repeat thyroid US done last year showed (+) significant decrease in the size of the previous left thyroid cyst - he has been advised that he may need to consider either ablation or resection if thyroid nodule recurs Had repeat FNA done last year (March 2023) - aspirate was non-diagnostic on pathology as patient was reportedly unable to tolerate multiple passes during the biopsy process Patient was advised option of repeat FNA but he declined as he felt that the procedure was too painful to undergo again He did agree to a repeat thyroid US in 6 months for follow up and will think about repeat FNA only if repeat imaging shows any concerning changes in his thyroid Repeat thyroid US done in September 2023 revealed (+) 1.6 cm mid left thyroid lobe with increased vascularity - recommended FNA Bx but patient remains adamant that he does not want another Bx He was seen by Dr. Vazquez on 11/28/2023 for endocrinology follow up and as patient is not interested in any further intervention, was returned to the care of his PCP Was advised that we can refer him back for any changes in his condition or situation and we can just continue surveillance with yearly thyroid ultrasound at this time - will repeat his thyroid US now for follow up (3) Vitamin D deficiency: Code(s): E55.9 - Vitamin D deficiency, unspecified Category: Medical Plan: Continue Vitamin D3 2000 units QD (4) Mild anemia: Code(s): D64.9 - Anemia, unspecified Category: Medical Plan: This was previously corrected but he is again slightly anemic on his labs done back in April 2024, with H/H at 13.8/42.1% Iron function tests and B12 level done with his previous labs all came back normal Will continue to monitor his CBC regularly (5) Allergic rhinitis: Code(s): J30.9 - Allergic rhinitis, unspecified Category: Medical Qualifiers: Allergic rhinitis trigger: pollen Allergic rhinitis seasonality: seasonal Qualified Code(s): J30.1 - Allergic rhinitis due to pollen Plan: Continue Fluticasone 50 mcg nasal spray BID PRN (Rx refilled) and Cetirizine 10 mg QD PRN (6) Constipation: Code(s): K59.00 - Constipation, unspecified Category: Medical Qualifiers: Constipation type: unspecified constipation type Qualified Code(s): K59.00 - Constipation, unspecified Plan: Patient is encouraged again on increased oral fluids and dietary fiber Continue Docusate 100 mg 1 to 2 capsules QD PRN; will start him additionally on Senokot 8.6-50 mg BID PRN (7) Primary osteoarthritis, left shoulder: Code(s): M19.012 - Primary osteoarthritis, left shoulder Category: Medical Plan: Left shoulder x-rays done in July 2022 revealed (+) mild to moderate glenohumeral osteoarthritis Patient reports (+) symptomatic improvement with cortisone injection from orthopedics (8) Lumbar spondylosis: Code(s): M47.816 - Spondylosis without myelopathy or radiculopathy, lumbar region Category: Medical Plan: Reinforced activity and weight lifting restrictions to avoid aggravating his low back pain (9) Calcaneal spur of right foot: Code(s): M77.31 - Calcaneal spur, right foot Category: Medical Plan: Follow up with Podiatry as scheduled (10) Hearing loss in left ear: Code(s): H91.92 - Unspecified hearing loss, left ear Category: Medical Qualifiers: Hearing loss type: unspecified Qualified Code(s): H91.92 - Unspecified hearing loss, left ear Plan: Reports that he still experiences frequent tinnitus in his left ear Have discussed with patient previously ways to help manage his tinnitus and have advised him that there is really no cure for hearing loss He has declined referral to a internet security specialist for fitting of hearing aids as he does not like to wear them and they are not really covered by his insurance (11) Insomnia: Code(s): G47.00 - Insomnia, unspecified Category: Medical Qualifiers: Insomnia type: unspecified Qualified Code(s): G47.00 - Insomnia, unspecified Plan: Sleep hygiene reinforced Continue Trazodone 50 mg Q HS PRN Plan Follow up in 6 months Orders: Orders Complete Blood Count Auto Diff 6 Months D64.9 - Anemia, unspecified TSH reflex Free T4 6 Months E78.00 - Pure hypercholesterolemia, unspecified UA CC w/rflx Micro + Cult 6 Months R30.0 - Dysuria Vitamin D 25-OH Total 6 Months E55.9 - Vitamin D deficiency, unspecified Lipid Panel 6 Months E78.00 - Pure hypercholesterolemia, unspecified Comprehensive [place]. Panel Fast 6 Months E78.00 - Pure hypercholesterolemia, unspecified Vitamin B12 and Folate 6 Months E53.8 - Deficiency of other specified B group vitamins US thyroid Today E04.1 - Nontoxic single thyroid nodule Medications: New sennosides-docusate sodium 8.6-50 mg (Senokot-S) 1 tab-cap PO BID 30 days PRN 60 tabs 12RF constipation Refilled fluticasone propionate 50 mcg/actuation administer into each nostril 1 spray intranasal BID 30 days 16 grams 5RF Discontinued sennosides (senna) Discontinued Reason: Duplicate Take 1 to 3 capsules PO daily PRN; 30 days 90 caps 12RF constipation K59.00 - Constipation, unspecified
--- OUTSIDE RECORDS SUMMARY | 2024-10-30 10:02 | XMS_ITS ---
Author Organization [facility] [place] Address [address] [place] [address] Care Team Providers Care Client Delivery Manager Name Role Phone Jarett Glaser MDneth Primary Care Provider Torrey Snow Unavailable [phone] Allergies No Known Allergies REASON FOR VISIT Foot pain Medications Medication SIG (Take, Route, Frequency, Duration) Notes Start Date End Date Status Ensure Not-Taking Hydrocortisone Not-T aking Cetirizine HCl Not-T aking Clobetasol Propionate Not-Taking Betamethasone Not-Ta guido Meloxicam 7.5 MG 1 tablet Orally Once a day Not-Taking Sennosides Not-Takin g Ketotifen Fumarate N ot-Taking Lidocaine 4 % 1 patch as needed Externally Once a day Not-Taking traZODone HCl 50 MG 1 tablet at bedtime as needed Orally Once a day Not-Taking Atorvastatin Calcium 10 MG 1 tablet Oral ly Once a day Active Vitamin D3 Active Stool Softener 100 MG 1 tablet as needed Orally Once a day Active Social History Tobacco Use: Social History Observation Description Date Details (start date - stop date) Never Smoker NA - NA Tobacco Use/Smoking Question Answer Notes Are you a: nonsmoker Additional Findings: Tobacco Non-User Current no n-smoker Alcohol Screen Question Answer Notes Did you have a drink containing alcohol in the p ast year? No Points 0 Interpretation Negative Tobacco use other than smoking: Question Answer Notes Are you an other tobacco user? 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 Vital Signs Height 5ft 7in in 08/31/2024 Weight 150 lbs 08/31/2024 BMI 23.49 kg/m2 08/31/2024 Encounters Encounter Location Date Provider Diagnosis [facility] [address] [address] 08/31/2024 Torrey Rodriguez Pain in right foot M79.671 ; Pain in right ankle and joints of right foot M25.571 ; Bursitis of right foot M77.51 and Osteoarthritis of midtarsal joint of right foot M19.071 Assessments Encounter Date Diagnosis (ICD Code) Assessment Notes Treatment Notes Treatment Clinical Notes Section Notes 08/31/2024 Pain in right foot (ICD-10 - M79.671) 08/31/2024 Pain in right ankle and joints of right foot (ICD-10 - M25.571) 08/31/2024 Bursitis of right foot (ICD-10 - M77.51) 08/31/2024 Osteoarthritis of midtarsal joint of right foot (ICD-10 - M19.071) Plan Of Treatment Pending Test Test Name Order Date X ray : Foot, right 3V 08/31/2024 Next Appt Details Follow Up: prn, Reason: Progress Notes * Milagro ZARATEDOB:1940 ([age] yo M)Acc No.[id number]:08/31/2024 Progress Notes Patient:?Milagro Zarate Provider:?Torrey Rodriguez DPM :1940???Age:83 Y???Sex:Male Dheeraj e:08/31/2024 Address:[address] [place] [address] Pcp:Davidson Glaser MD Subjective: * Chief Complaints: * ???Foot pain * HPI: ???Foot Pain:?Nature:?aching, stiffness, swelling, throbbing.?Location:?Top, Midfoot, RIGHT.?Duration:?several years.?Course:?worse.?Treatments:?rest/alter normal daily activity , medication ( tylenol, Lidocaine patch, Piroxicam).? * ROS:?General/Constitutional:?Nausea?denies.?Vomiting?denies.?Hunger Thirst?denies.?Loss appetite?denies.?Chills?denies.?Fatigue?denies.?Fever?denies.?Night Sweats?denies.?Unexplained weight loss?denies.?Unexplained weight gain?denies.?HEENTM:?Dentures?admits.?Dizziness?denies.?Glasses/contacts?admits.?Retinopathy?de nies.?Blurred/double vision?denies.?TMJ?denies.?Discharge/drainage?denies.?Implants?denies.?Sore throat?denies.?Dental implants?denies.?Hard of hearing ?admits.?Difficulty chewing/swallowing/speaking?denies.?Nose bleeds?denies.?Sore mouth?denies.?Respiratory:?On Oxygen?denies.?Pneumonia/pleurisy?denies.?Bronchitis?denies.?Emphysema?denies.?C oughing?denies.?Cough blood?denies.?Shortness of breath?denies.?Wheezing?denies.?Cardiovascular:?Pacemaker?denies.?MVP?denies.?WPW?denies.?CHF?denies.?Heart attack?denies.?Septal defect?denies.?Rapid beat?denies.?Chest pain ?denies.?Atrial Fib.?denies.?Murmur/Palpitations?denies.?Gastrointestinal:?Hemorrhoids?denies.?Stomach/Abdominal pain?denies.?Dark blood stool?denies.?Irritable bowel ?denies.?Constipation?denies.?Diarrhea?denies.?Hematology:?Swelling?denies.?Clots?denies.?Varicose Veins?admits.?Bruising?denies.?Bleeding problem?denies.?Genitourinary:?Blood urine?denies.?Frequent/Painfu/urination/bladder control?denies.?Kidney stones?denies.?Infection (UTI)?denies.?Nephropathy?denies.?sex trans dis (STD)?denies.?Prostate?denies.?Musculoskeletal:?Hammertoes?denies.?Bunions?denies.?Back Pain?denies.?Muscle Cramps/ Resting?denies.?Muscle cramps / walking?denies.?Generalized aches and pains?denies.?Weakness?denies.?Integ.:?Bermudez?denies.?Scars?denies.?Corns/calluses?denies.?Ingrown nails?denies.?Painful nails?denies.?Open Sores?denies.?Rashes?denies.?Neurologic:?Difficulty sleeping?denies.?Brain disorder?denies.?Numbness?denies.?Balance trouble?denies.?Confusion?denies.?Fainting/blackouts?denies.?Tingling?denies.?Tr emors?denies.? * Medical History:? * Surgical History:?colonoscop y biopsy * Hospitalization/Major Diagno stic Procedure:?No Hospitalization History. * Family History:?Mother: dece ased.?Father: .?Spouse: .?Non-Contributory.? * Social History:?Tobacco Use:?Tobacco Use/Smoking?Are you a:?nonsmoker ?Additional Findings: Tobacco Non-User?Current non-smoker ?Tobacco use other than smoking?Are you an other tobacco user??No ???Drugs/Alcohol:?Drugs?Have you used drugs other than those for medical reasons in the past 12 months??No ?Alcohol Screen?Did you have a drink containing alcohol in the past year??No ?Points?0 ?Interpretation?Negative ???Miscellaneous:?Caffeine: yes. ?Children: yes. ?Marital status: . ?Occupation: Retired. * Medications:?TakingAtorvasta tin Calcium 10 MG Tablet 1 tablet Orally Once a dayStool Softener 100 MG Tablet 1 tablet as needed Orally Once a dayVitamin D3 Taking Atorvastatin Calcium 10 MG Tablet 1 tablet Orally Once a dayTaking Stool Softener 100 MG Tablet 1 tablet as needed Orally Once a dayTaking Vitamin D3 Not-Taking/PRNtraZODone HCl 50 MG Tablet 1 tablet at bedtime as needed Orally Once a daySennosides Meloxicam 7.5 MG Tablet 1 tablet Orally Once a dayLidocaine 4 % Patch 1 patch as needed Externally Once a dayKetotifen Fumarate Hydrocortisone Ensure Clobetasol Propionate Cetirizine HCl Betamethasone Medication List reviewed and reconciled with the patientNot-Taking/PRN traZODone HCl 50 MG Tablet 1 tablet at bedtime as needed Orally Once a dayNot-Taking/PRN Sennosides Not-Taking/PRN Meloxicam 7.5 MG Tablet 1 tablet Orally Once a dayNot-Taking/PRN Lidocaine 4 % Patch 1 patch as needed Externally Once a dayNot-Taking/PRN Ketotifen Fumarate Not-Taking/PRN Hydrocortisone Not-Taking/PRN Ensure Not-Taking/PRN Clobetasol Propionate Not-Taking/PRN Cetirizine HCl Not-Taking/PRN Betamethasone Medication List reviewed and reconciled with the patient * Allergies:?N.K.D.A.yes[Aller stanton Verified] Objective: * Vitals:?Ht: 5ft 7in, Wt: 150 , BMI: 23.49, Shoe size: 8.5, Ht-cm: 170.18 cm, Wt- k.04 kg. * Examination: ???Orthopedic: ?MUSCLE STRENGTH:?5/5 all groups in a symmetrical fashion , B/L.?FOOT MORPHOLOGY:? Prominent, painful 1st Met-Cuneiform joint without inflammation, RIGHT, Pes Planus structure.?X-Rays - IMAGING REPORT: ?Clinical Indication(s):? Evaluate for Fracture, Evaluate Biomechanical Deformity.?Views:? 3 views of Foot, AP, LAT, LO, RIGHT.?Findings:?normal bone and soft tissue density consistent for patients age and sex, eburnation dorsal 1st MT/Cun. jt, dorsal degenerative changes of the tarsal joints.?Fracture:?Negative fractures identified.?Neurological: ?SENSORY:?Neurological exam reveals intact sensorium, pain sensation normal, vibration sensation intact, pinprick sensation is normal in the lower extremities, Pt denies, anesthesia, burning, paresthesia, tingling, B/L.?TINEL'S COMPRESSION:? Negative, Intermediate dorsal cutaneous nerve distribution, Medial dorsal cutaneous nerve distribution, Deep peroneal nerve distribution, Right.?DEEP TENDON REFLEXES:?Achilles, 2/4, B/L.?General Examination: ?GENERAL APPEARANCE:?Reveals a pleasant, alert, well-nourished, well- developed, well hydrated individual, who demonstrates proper attention to hygiene/body habitus, and is in no acute distress, Pt serves as own?historian for office visit today.?ORIENTED:?person, place, and time.?Vascular: ?DP PULSES(B):?2/4, B/L.?PT PULSES(B):?2/4, B/L.?CAPILLARY FILL TIME:?immediate, all digits, B/L.?TROPHIC CONDITION-TEXTURE/ELASTICITY/TURGOR/HAIR GROWTH(B):?normal, B/L.?TEMPERTURE GRADIENT(C):?warm to cool, proximal to distal, B/L.?PIGMENTATION:?normal, B/L.?EDEMA(C):?absent, B/L.?Dermatologic: ?SKIN FINDINGS:?Skin exam reveals normal texture, elasticity, and turgor. There are no masses. The interspaces are clear.? 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 Plan: * Treatment: * Procedure Codes:?81817 X-RAY EXAM OF RIGHT FOOT 3V, Modifiers: 26 , RT * Preventive Medicine:? ??Counseling:?Discussion:?-04: Office or other outpatient visit for the evaluation and management of a new patient, which required a medically appropriate history and/or examination and MODERATE level of DECISION MAKING for: 1 OR MORE CHRONIC PROBLEM(S) THATS WORSENING, 2 STABLE CHRONIC PROBLEMS, A NEWLY DIAGNOSED PROBLEM WITH UNCERTAIN PROGNOSIS, AN ACUTE COMPLICATED INJURY WITH MULTIPLE TREATMENT OPTIONS, OR AN ACUTE PROBLEM WITH ACCOMPANYING SYSTEMIC SYMPTOMS, THAT POSE(S) A MODERATE RISK OF MORBIDITY. THIS CONDITION MAY ALSO INCLUDE RX DRUG MANAGEMENT, OR A DECISON FOR MINOR SURGERY. The visit on the day of the encounter encompassed interpreting the data and educating the patient as to the nature of their condition, treatment options available according to their individual PMH, meds, allergies, and overall health/living conditions, as well as any potential risks or complications that may occur from a failure to adhere to, and participate in, the recommended course of therapy. The discussion included a complete verbal, and/or written explanation of the examination results, any x-rays taken, the proposed diagnosis, and outline of the treatment plan. A schedule for future care needs was also explained. The patient verbalized an understanding of the instructions at this time and agreed to be an active participant in their treatment. If the patient should think of any questions or concerns after the visit, I have encouraged the patient to call the office.?Arthritis:?The patient was counseled on the various etiologies for their Arthritis including genetic, history of injury or trauma, abnormal foot biomechanics leading to excessive joint wear, and use/overuse. We discussed the various treatment options from no treatment, to topical analgesics such as Biofreeze gel, Aspercream, Voltaren gel, Lidoderm patches, CBD oils, THC creams, and Custom-compounded topical cream preparations to natural oral products such as Glucosamine Sulfate/Chondroitin/MSM/Collegen to analgesic Tylenol, to anti-inflammatory medications such as Ibuprofen/Naproxen, and the use of oral steroids if needed. Cardiac, Kidney, and GI issues were discussed RE: potential complications of oral anti-inflammatories. We discussed several other treatment options consisting of accom shoes, supportive innersoles, AFO bracing/support, cortisone injection therapy, and surgical resection of the arthritic joint(s) or fusion reconstruction if necessary. We discussed the advantages and disadvantages of conservative (vs) surgical treamtents including pain relief, improved function/activities of daily life, return to exercise to failure, expense, systemic complications, infection, [id number], prolongued postop course. Patient questions re: the various treatment options available, their successes and potential failures, and longitudinal float operator effects were discussed and the answers were verbally confirmed understood.?Orthotics:?I explained to the patient the benefits of OT use. I explained that orthoses are medically necessary to decrease the foot pain through proper mechanical control, support of their foot.?P.R.I.C.E.:?The patient was counseled on the use of P.R.I.C.E. and NSAIDS (if well tolerated) to aid in the recovery from their painful condition.?Podiatric Surgery Counseling:?Surgical procedures to treat the patients foot problem were discussed. We reviewed the risks of the procedure (described below) vs not having the procedure (persistent pain, deformity, risk for skin ulceration/infection, loss of toe). We discussed the potential procedure complications including, but not limited to: pain, swelling, bleeding, scarring, numbness, infection, delayed/non healing, floppy/unstable/shorthened toe, recurrence, failure of the procedure, overcorrection leading to plantarflexed/downward positioned toe, recurrence, need for further surgery, as well as the possibility for loss of the toe itself. We discussed the use of IV/Local anesthesia, and the usual post-op course for healing. No guarentees were given. The patient verbally indicated a full understanding of the above conversation, and any other of their questions were answered to their satisfaction.?Shoe Gear Counseling:?The patient and I reviewed the types of shoes they should be wearing. My recommendation included obtaining a well-fitted shoe with a good supportive, non-foldable nor twistable sole, plenty of toe/room for the forefoot, and proper arch support. Based on todays examination, I recommended the patient look for new shoes, by having their feet professionally measured. We discussed that generally the best time of the day for a shoe fitting is the afternoon. Different shoes types and brands to best match the patients occupation and vocation were discussed. Specific brand selection will be up to the patient, their individual foot condition/deformities, and fit. The patient and I reviewed the standard new shoe break in period by wearing them for a few hours a day while checking for redness or sores as wear time is increased. The patient verbally confirmed to understanding the information discussed.? * Follow Up:?prn * Images: * Sign off status: Completed true * Provider:?Torrey Rodriguez DPM Date:?2023 Generated for Fina bustamante/Adalid/Micitting on:?10/30/2024 10:02 AM EST History and Physical Notes * HPI (History of Present Illness) Category Sub-Category Detail Notes Category Not es Foot Pain Nature: aching, stiffness, swelling, throbbing Location: Top, Midfoot, RIGHT Duration: several years Course: worse Treatments: rest/alter normal da hardik activity , medication ( tylenol, Lidocaine patch, Piroxicam) Examination Category Sub-Category Detail Notes Category Not es Neurological SENSORY: Neurological exa m reveals intact sensorium, pain sensation normal, vibration sensation intact, pinprick sensation is normal in the lower extremities, Pt denies, anesthesia, burning, paresthesia, tingling, B/L TINEL'S COMPRESSION: Negative, Intermedi ate dorsal cutaneous nerve distribution, Medial dorsal cutaneous nerve distribution, Deep peroneal nerve distribution, Right DEEP TENDON REFLEXES: Achilles, 2/4, B/L Dermatologic SKIN FINDINGS: Skin exam reveal s normal texture, elasticity, and turgor. There are no masses. The interspaces are clear Orthopedic FOOT MORPHOLOGY: Prominent, pain ful 1st Met-Cuneiform joint without inflammation, RIGHT, Pes Planus structure MUSCLE STRENGTH: 5/5 all groups in a symmetrical fashion , B/L General Examination GENERAL APPEARANCE: Reveals a pleasant, alert, well- nourished, well-developed, well hydrated individual, who demonstrates proper attention to hygiene/body habitus, and is in no acute distress, Pt serves as own historian for office visit today ORIENTED: person, place, and t ina Vascular DP PULSES (B): 2/4, B/L PT PULSES (B): 2/4, B/L CAPILLARY FILL TIME: immediate, all digi ts, B/L TEMPERTURE GRADIENT (C): warm to cool, p roximal to distal, B/L TROPHIC CONDITION-TEXTURE/ELASTICITY/TURGOR/HAIR GROWTH (B): normal, B/L EDEMA (C): absent, B/L PIGMENTATION: normal, B/L X-Rays - IMAGING REPORT Findings: normal b one and soft tissue density consistent for patients age and sex, eburnation dorsal 1st MT/Cun. jt, dorsal degenerative changes of the tarsal joints Fracture: Negative fractures i dentified Views: 3 views of Foot, AP, LAT, LO, RIGHT Clinical Indication(s): Evaluate for Fra cture, Evaluate Biomechanical Deformity
--- OUTSIDE RECORDS SUMMARY | 2024-10-30 10:02 | XMS_ITS | Patient Health Record ---
Author Organization [facility] [place] Address [address] [place] [address] Care Team Providers Care Supervisor Television Chassis Repair Name Role Phone Alfredito BARBER, [place] Primary Care Provider Torrey Snow Unavailable [phone] Allergies No Known Allergies Reason For Referral No Information Medications Medication SIG (Take, Route, Frequency, Duration) Notes Start Date End Date Status Vitamin D3 Active Stool Softener 100 MG 1 tablet as needed Orally Once a day Active Betamethasone Not-Ta guido Ensure Not-Taking Hydrocortisone Not-T aking Atorvastatin Calcium 10 MG 1 tablet Oral ly Once a day Active Cetirizine HCl Not-T aking Clobetasol Propionate Not-Taking Meloxicam 7.5 MG 1 tablet Orally Once a day Not-Taking Sennosides Not-Takin g Ketotifen Fumarate N ot-Taking Lidocaine 4 % 1 patch as needed Externally Once a day Not-Taking traZODone HCl 50 MG 1 tablet at bedtime as needed Orally Once a day Not-Taking Social History Tobacco Use: Social History Observation [...] Osteoarthritis of midtarsal joint of right foot (6467595816296258 ) 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 Vital Signs Height 5ft 7in in 08/31/2024 Weight 150 lbs 08/31/2024 BMI 23.49 kg/m2 08/31/2024 Encounters Encounter Location Date Provider Diagnosis [facility] [address] [address] 08/31/2024 Torrey Jennifer Pain in right foot M79.671 ; Pain in right ankle and joints of right foot M25.571 ; Bursitis of right foot M77.51 and Osteoarthritis of midtarsal joint of right foot M19.071 Assessments Encounter Date Diagnosis (ICD Code) Assessment Notes Treatment Notes Treatment Clinical Notes Section Notes 08/31/2024 Pain in right ankle and joints of right foot (ICD-10 - M25.571) 08/31/2024 Pain in right foot (ICD-10 - M79.671) 08/31/2024 Bursitis of right foot (ICD-10 - M77.51) 08/31/2024 Osteoarthritis of midtarsal joint of right foot (ICD-10 - M19.071) Plan Of Treatment Pending Test Test Name Order Date X ray : Foot, right 3V 08/31/2024 Insurance Providers Payer Name Payer Address Payer Phone Subscriber Number Group Number Insured Name Patient Relationship to Insured Coverage Start Date Coverage End Date [facility] re-[address] [address] [address] [place] [phone] [id number] Milagro Zarate Self - patient is the insured Medical (General) History Medical History History ICD Code CAD (Cholesterol) thyroid Insomnia Allergic rhinitis Vitamin D deficiency Hearing loss Constipation Hypercholesterolemia Osteoarthritis Lumbar spondylosis thrombophlebitis Surgical History Surgery Date(Month/Year) colonoscopy biopsy
[2024-10-30 10:34] VITALS: BP 124/78
== END 2024-10-30 10:42 | disposition home or self-care (01) ==
PROVIDERS: PCP Internal Medicine; Visit Provider Internal Medicine
DX: E78.00 Pure hypercholesterolemia, unspecified (principal); E04.1 Nontoxic single thyroid nodule; E55.9 Vitamin D deficiency, unspecified; D64.9 Anemia, unspecified; J30.1 Allergic rhinitis due to pollen; K59.00 Constipation, unspecified; M19.012 Primary osteoarthritis, left shoulder; M47.816 Spondylosis without myelopathy or radiculopathy, lumbar region; M77.31 Calcaneal spur, right foot; H91.92 Unspecified hearing loss, left ear; G47.00 Insomnia, unspecified

== ENCOUNTER → 2024-10-30 09:59 | Outpatient (BNVA) | payer OTHER, SELFPAY | PROVIDERS: PCP Internal Medicine; Visit Provider Internal Medicine | DX: E78.00 Pure hypercholesterolemia, unspecified (principal); E04.1 Nontoxic single thyroid nodule; E55.9 Vitamin D deficiency, unspecified; D64.9 Anemia, unspecified; J30.1 Allergic rhinitis due to pollen; K59.00 Constipation, unspecified; M19.012 Primary osteoarthritis, left shoulder; M47.816 Spondylosis without myelopathy or radiculopathy, lumbar region; M77.31 Calcaneal spur, right foot; H91.92 Unspecified hearing loss, left ear; G47.00 Insomnia, unspecified | CPT/HCPCS: 96127; 99212 ==

== ENCOUNTER 2024-11-12 14:30 | Outpatient (REF) | payer OTHER, SELFPAY ==
--- NOTE | ~2024-11-12 | US_ITS ---
EXAMINATION: US THYROID CLINICAL INFORMATION: Nontoxic single thyroid nodule. Yearly US follow-up. Patient declined prior thyroid FNA. COMPARISON: Most recently 09/23/2023. TECHNIQUE: Linear transducer grayscale and color Doppler examination with attention to the region of the thyroid. FINDINGS: SIZE: Measurements of the thyroid lobes and nodules are given in sagittal, anteroposterior and transverse dimensions respectively. Right Thyroid Lobe: 4.3 x 2.0 x 1.8 cm, volume 8.1 mL. Parenchyma: The gland echotexture is normal. Thyroid vascularity is normal. Left Thyroid Lobe: 4.0 x 2.4 x 2.0 cm, volume 10.0 mL. Parenchyma: The gland echotexture is normal. Thyroid vascularity is normal. Isthmus: 0.4 cm in maximum AP dimension. Estimated total number of nodules greater than or equal to 1 cm: 1. Hydrology Professor nodules are described as follows: 1. Location: Left lower pole. Size: 1.4 x 1.0 x 1.2 cm, volume 0.9 mL. (Previously measuring 1.6 x 1.1 x 1.4 cm, with volume = 1.2 mL). Nodule characteristics: Composition: Solid (2). Echogenicity: Hypoechoic (2). Shape: Not taller than wide (0). Margins: Smooth (0). Echogenic Foci: Punctate echogenic foci (3). ACR TI-RADS total points: 7 ACR TI-RADS category: 5 2. No additional solid nodules. 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 NODES: No lymphadenopathy is seen in the tissue surrounding the thyroid gland. US/US thyroid IMPRESSION: 1. There is a slightly smaller TI-RADS Category 5 nodule measuring 1.4 cm in the left lower pole. Given stability over time this is consistent with a benign entity although further follow-up could be considered as felt warranted. 2. 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 3. Remainder of the thyroid gland is normal. ACR TI-RADS RECOMMENDATION REFERENCE: Ultrasound-guided fine-needle aspiration, followup ultrasound, no further follow up. * TR1 (0 point) and TR2 (2 points): No FNA or follow up. * TR3 (3 points): FNA if more than or equal to 2.5 cm in maximum dimension, followup ultrasound in 1, 3 and 5 years if 1.5 to 2.4 cm in maximum dimension. * TR4 (4-6 points): FNA if more than or equal to 1.5 cm in maximum dimension, followup ultrasound in 1, 2, 3 and 5 years if 1 to 1.4 cm in maximum dimension. * TR5 (more than or equal to 7 points): FNA if more than or equal to 1 cm in maximum dimension, followup ultrasound every year for 5 years if 0.5 to 0.9 cm in maximum dimension. * TR3, TR4 or TR5 nodules that are below the size threshold for followup receive no follow up. Electronically signed by: Elgin Zuñiga MD 11/17/2024 09:14 AM [id number]
--- OUTSIDE RECORDS SUMMARY | 2024-11-12 16:37 | XMS_ITS ---
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 Plan: * Treatment: * Procedure Codes:?07513 X-RAY EXAM OF RIGHT FOOT 3V, Modifiers: [...] exercise to failure, expense, systemic complications, infection, [id number], prolongued postop course. Patient questions re: the various treatment options available, their successes and potential failures, and snf effects were discussed and the answers were [...] * Sign off status: Completed true * Provider:Chaparro Rodriguez DPM Date:?2023 Generated for Fina bustamante/Adalid/Jennifer on:?11/12/2024 04:36 PM EST History and Physical Notes * HPI [...]
--- OUTSIDE RECORDS SUMMARY | 2024-11-12 16:37 | XMS_ITS | Patient Health Record ---
Author Organization [facility] [place] Address [address] [place] [address] Care Team Providers Care Wire Straightening Machine Operator Name Role Phone Alfredito BARBER, [place] Primary Care Provider Torrey Snow Unavailable [phone] Allergies No Known Allergies Reason For Referral [...] Osteoarthritis of midtarsal joint of right foot (7310346363880751 ) 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 Vital Signs Height 5ft 7in in 08/31/2024 Weight 150 lbs 08/31/2024 BMI 23.49 kg/m2 08/31/2024 Encounters Encounter Location Date Provider Diagnosis [facility] [address] [address] 08/31/2024 Torrey Jennifre Pain in right foot M79.671 ; Pain [...] Insured Coverage Start Date Coverage End Date [facility] re-10625 [address] [address] [place] [address] [id number] Milagro Zarate Self - patient is the insured Medical (General) History Medical History History ICD Code CAD (Cholesterol) thyroid Insomnia Allergic rhinitis Vitamin D deficiency Hearing loss Constipation Hypercholesterolemia Osteoarthritis Lumbar spondylosis thrombophlebitis Surgical History Surgery Date(Month/Year) colonoscopy biopsy
== END 2024-11-12 14:31 | disposition home or self-care (01) ==
LOC: HO.US 14:30
PROVIDERS: PCP Internal Medicine; Visit Provider Internal Medicine
DX: E04.1 Nontoxic single thyroid nodule (principal)
CPT/HCPCS: 76536

== ENCOUNTER → 2024-11-12 14:32 | Outpatient (BNV) | payer OTHER, SELFPAY | PROVIDERS: PCP Internal Medicine; Visit Provider Radiology Diagnostic Radiology | DX: E04.1 Nontoxic single thyroid nodule (principal) | CPT/HCPCS: 76536 ==

== ENCOUNTER 2025-04-24 10:09 | Outpatient (REF) | payer OTHER, SELFPAY ==
--- OUTSIDE RECORDS SUMMARY | 2025-04-24 10:11 | XMS_ITS ---
Author Name Nicholas Real NP Address [address] [place] [id number] Phone [phone] [facility] Care Team Providers Care Terminal Makeup Operator Name Role Phone Richard Real Unavailable [phone] JULI LUCIA Unavailable [phone] Davidson Glaser Unavailable [phone] Reason for Referral Not Available Allergies, adverse reactions, alerts No known allergies History of medication use Medication Class Instructions Start Date End Date Atorvastatin Calcium 10 mg Tab TAKE ONE TABLET BY MOUTH AT BEDTIME 2021-12-28 No Data Available Loratadine 10 mg Tab TAKE ONE TABLET BY MOUTH EVERY DAY 2022-04-16 2022-09-03 traZODone 50 mg Tab TAKE ONE TABLET BY M OUTH AT BEDTIME NEEDED FOR INSOMNIA 2022-04-16 No Data Available DERMAREST ECZEMA 1% LOTN APPLY TOPICALLY TWO TIMES A DAY NEEDED FOR SKIN IRRITATION 2022-04-16 No Data Available Cephalexin 500 mg Cap TAKE ONE CAPSULE B Y MOUTH FOUR TIMES A DAY FOR 7 DAYS 2022-06-06 No Data Available predniSONE 20 mg Tab TAKE ONE TABLET BY MOUTH EVERY DAY FOR 5 DAYS 2022-06-06 2022-09-03 Fluticasone Propionate 50 MCG/ACT Suspension Nasal USE 1 SPRAY IN EACH NOSTRIL TWO TIMES A DAY 2021-12-28 No Data Available Senna 8.6 mg Cap TAKE 1-3 CAPSULES BY MOUTH DAILY NEEDED FOR CONSTIPATION. 2022-07-10 No Data Available Vitamin D3 50 MCG (1999 UT) Cap TAKE ONE CAPSULE BY MOUTH EVERY DAY 2022-12-22 No Data Available Cetirizine 10 mg Tab TAKE ONE TABLET BY MOUTH EVERY DAY NEEDED FOR ALLERGY SYMPTOMS 2022-12-26 No Data Available Betamethasone Valerate 0.1 % Crm APPLY TOPICALLY DAILY NEEDED FOR SKIN IRRITATIONS 2022-12-26 No Data Available Docusate Sodium 100 mg Cap TAKE 1-2 CAPS ULES BY MOUTH ONCE DAILY NEEDED FOR CONSTIPATION 2023-04-25 No Data Available Tylenol 650 mg Tab Take 1- 2 tablets Q 8 hrs prn 2023-05-29 No Data Available Eye Itch Relief 0.035 % Solution Ophthalmic INSTILL 1 DROP INTO AFFECTED EYES TWO TIMES A DAY NEEDED FOR ALLERGY SYMPTOMS 2023-10-25 No Data Available Lidocaine-Prilocaine 2.5-2.5 % Crm 1gm to affected area BID PRN neuropathic pain 2024-01-07 No Data Available Meloxicam 7.5 mg Tab TAKE ONE TABLET BY MOUTH EVERY DAY WITH FOOD NEEDED FOR PAIN 2023-10-25 No Data Available Stool Softener/Laxative 50/8.6 mg Tab TAKE ONE TABLET BY MOUTH TWICE A DAY NEEDED FOR NEEDED FOR CONSTIPATION 2024-10-30 No Data Available [place]-3 Fish Oil 1200 mg Cap 1 capsule orally per day 2024-12-21 No Data Available Icy Hot Extra Strength 10-30 % Crm 1 application BID PRN 2024-12-21 No Data Available Problem List Problem Status Onset Date Resolved Date Synopsis Osteoporosis Active 2022-09-03 N/A Vitamin D Ea t calcium rich food, take calcium and vitamin D and do as much exercise as tolerable 12/21/24Rx: Eat foods high in calcium and vitamin D. Be active for at least 30 minutes a day. Avoid smoking, limit alcohol intake. Sit up after taking alendronate for at least 30 minutes. Thyroid mass of unclear etiology Active 2023-05-29 N/A Followed by endo crinology Dr. Lucia Lou for new mass on thyroid. Goes every 3 months for drainage. No more drainage. No new medications orally per DIL12/21/2024Monitored every 6 months by PCP. DIL reports biopsy was attempted but was not able to get sample and biopsy was to painful so now they are just monitoring every 6 months. Denies impact on swallowing or managing secretions. Insomnia Active 2022-09-03 N/A TrazodoneStabl e, able to sleep enough hours and feels rested12/21/24Rx: Trazadone 50 mg as needed Controlled w/ medication use. Follow up with PCP. DermatitisGeneralized pruritus Active 2022-09-03 N/A Dermarest CreamRx: Dermarest 1% cream Denies skin concerns- rash/wounds but does endorse generalized pruritis Allergic rhinitis Active 2022-09-03 N/A Flutica soneCertrazineNasal rinse. Stable12/21/24Rx: Cetirizine 10 mg, fluticasone 50 mcg, Eye itch relief 0.035%Controlled w/ medication use. Follow up with PCP. Chronic constipation Active 2022-09-03 N/A Cont inue stool softeners/laxativesHigh fiber diet, plenty of fluidsregularSenna / Colace for constipationHad colonoscopy 10 years 12/21/2024Rx: Docusate 100 mg as needed, senna 8.6 mg as needed, stool softner/laxatitive 50/8.6 as needed Last BM: 12/20/24 per member. Controlled w/ medication use. Varicose veins of lower extremities with complications Active 2023-05-29 N/A PCP is aware, ta guido pain medication (Tylenol)Visible on exam telehealth12/21/24Rx: Atorvastatin 10 mg at bedtime. Denies lower extremity edema or skin changes at time of visit. DIL reports occasional bilateral lower extremity edema that comes and goes Other problems related to medical facilities and other health care Active 2024-01-07 N/A DEMENTIA CO NTINGENCY PLANLast updated: 12/21/2024Member to call for the following symptoms: DeliriumPlanned intervention: Encourage increased fluid intake/ Ask about last bowel movement/ Assess for UTI symptoms; if present, start Bactrim DS BID x3 days/ Melatonin 3mg at bedtime/ Limit extra stimulation Minimal recurrent major depressive disorder Active 2024-12-21 N/A 12/21/24Rx: T razadone 50 mg (for insomnia)Denies anxiety at time of visit. PCP manages. PHQ9: 4Denies SI/HI. Notify provider with any changes in behavior, difficulty sleeping, or new/worsening depressive symptoms. Continue to follow up with PCP/Psych. Hyperlipidemia Active 2022-09-03 N/A Atorvastat inEncouraged physical activityDiet low in saturated and trans fatHealthy diet, including lots of fruits and vegetables.12/21/24Rx: Atorvastatin 10 mg daily Heart healthy dietPatient instructed on the importance of taking medications as prescribed. Routine follow up for surveillance. Continue to follow up with PCP Memory impairment Active 2024-12-21 N/A 12/21/24 Member alert to self, place and confused on time. This is baseline per DIL. DIL denies member being dx with dementia. DIL states just memory issues. Member lives with DIL and grandchildren. Follow up with PCP for further evaluation. Bilateral knee painRight hip pain Active 2024-01-07 N/A Hip Pain started 30 years ago. Chronic pain of right hip. No pain in lower back. Shooting pain. From right hip to knee. No pain in groin area. Will see PCP for MRI in April. Bilateral knee pain. dull and aching, worse with ambulation, the trial of lidcocaine cream.Moderate pain, trial of lidocaine cream12/21/24RX: Lidocaine-Prilocaine 2.5-2.5 % Crm 1gm to affected area BID PRN neuropathic pain, Tylenol 650 mg Tab Take 1- 2 tablets Q 8 hrs prn, Icy Hot Extra Strength 10-30 % Crm 1 application BID PRNMember endorses intermittent chronic bilateral knee pain and right hip pain that impacts ambulation. Member uses manual wheelchair for ambulation. Denies recent falls. Encouraged to use DME and encouraged fall precautions. Encounters Encounters Type Facility Date of Service Diagnosis/Co mplaint Pain Assessment - NO pain present (1126F) [facility] [place] Pain Assessment - NO pain present (1126F) [facility] [place] Pain Assessment - NO pain present (1126F) [facility] [place] Pain Assessment - NO pain present (1126F) [facility] [place] Pain Assessment - NO pain present (1126F) [facility] [place] Pain Assessment - NO pain present (1126F) [facility] [place] Pain Assessment - NO pain present (1126F) [facility] [place] Hyperlipidemia, unspecifiedAge-related osteoporosis without current pathological fractureAllergic rhinitis, unspecifiedInsomnia, unspecifiedDermatitis, unspecifiedOther constipation Pain Assessment - NO pain present (1126F) [facility] Pain Assessment - NO pain present (1126F) [facility] New patient,40-59min; chronic exacerbation, 2 stable chronic or 1 acute illness add add modifier 95 for video (do not use for phone, instead use [id number]) [facility] 05[place]/2023 Hyperlipidemia, unspecifiedAge-related osteoporosis without current pathological fractureAllergic rhinitis, unspecifiedInsomnia, unspecifiedDermatitis, unspecifiedOther constipationOther specified disorders of thyroidVaricose veins of unsp lower extremities w oth complications New patient,40-59min; chronic exacerbation, 2 stable chronic or 1 acute illness add add modifier 95 for video (do not use for phone, instead use 79612-69) [facility] [place] New patient,40-59min; chronic exacerbation, 2 stable chronic or 1 acute illness add add modifier 95 for video (do not use for phone, instead use 65952-78) [facility] [place] New patient,40-59min; chronic exacerbation, 2 stable chronic or 1 acute illness add add modifier 95 for video (do not use for phone, instead use 53219-69) [facility] [place] New patient,40-59min; chronic exacerbation, 2 stable chronic or 1 acute illness add add modifier 95 for video (do not use for phone, instead use 39554-09) [facility] [place] New patient,40-59min; chronic exacerbation, 2 stable chronic or 1 acute illness add add modifier 95 for video (do not use for phone, instead use 63549-51) [facility] [place]20[place] Estab. patient 30-39min; chronic exacerbation, 2 stable chronic or 1 acute illness add add modifier 95 for video, (do not use for phone, instead use 60379-02) [facility] [place] 01[place]/2024 Other problems related to medical facilities and other health careHyperlipidemia, unspecifiedAge-related osteoporosis without current pathological fractureAllergic rhinitis, unspecifiedInsomnia, unspecifiedDermatitis, unspecifiedOther constipationOther specified disorders of thyroidVaricose veins of unsp lower extremities w oth complicationsPain in right kneePain in left kneePain in right hip Estab. patient 30-39min; chronic exacerbation, 2 stable chronic or 1 acute illness add add modifier 95 for video, (do not use for phone, instead use 47771-66) [facility] ([place] 01/07/20[place] Estab. patient 30-39min; chronic exacerbation, 2 stable chronic or 1 acute illness add add modifier 95 for video, (do not use for phone, instead use 62055-19) [facility] [place] Estab. patient 30-39min; chronic exacerbation, 2 stable chronic or 1 acute illness add add modifier 95 for video, (do not use for phone, instead use 56083-39) [facility] [place]/20[place] Estab. patient 30-39min; chronic exacerbation, 2 stable chronic or 1 acute illness add add modifier 95 for video, (do not use for phone, instead use 04991-91) [facility] [place] Estab. patient 30-39min; chronic exacerbation, 2 stable chronic or 1 acute illness add add modifier 95 for video, (do not use for phone, instead use 56101-56) [facility] [place] Estab. patient 30-39min; chronic exacerbation, 2 stable chronic or 1 acute illness add add modifier 95 for video, (do not use for phone, instead use 35609-67) [facility] [place] Estab. patient 30-39min; chronic exacerbation, 2 stable chronic or 1 acute illness add add modifier 95 for video, (do not use for phone, instead use 00427-05) [facility] [place]20[place] Estab. patient 30-39min; chronic exacerbation, 2 stable chronic or 1 acute illness add add modifier 95 for video, (do not use for phone, instead use 91523-96) [facility] [place] Estab. patient 30-39min; chronic exacerbation, 2 stable chronic or 1 acute illness add add modifier 95 for video, (do not use for phone, instead use 09499-05) [facility] [place] 01[place] Estab. patient 30-39min; chronic exacerbation, 2 stable chronic or 1 acute illness add add modifier 95 for video, (do not use for phone, instead use 57956-17) [facility] [place]/20[place] Estab. patient 20-29min; 1 stable chronic or 2 minor; add add modifier 95 for video, modifier 93 for phone [facility] [place] 12[place]21/2024 Other specified disorders of thyroidHyperlipidemia, unspecifiedAge-related osteoporosis without current pathological fractureAllergic rhinitis, unspecifiedInsomnia, unspecifiedDermatitis, unspecifiedPruritus, unspecifiedOther constipationVaricose veins of unsp lower extremities w oth complicationsPain in right kneePain in left kneePain in right hipOther amnesiaMajor depressive disorder, recurrent, unspecifiedOther problems related to medical facilities and other health care Estab. patient 20-29min; 1 stable chronic or 2 minor; add add modifier 95 for video, modifier [address] [facility] Estab. patient 20-29min; 1 stable chronic or 2 minor; add add modifier 95 for video, modifier [address] [facility] Estab. patient 20-29min; 1 stable chronic or 2 minor; add add modifier 95 for video, modifier [address] [facility]/21/20[place] Estab. patient 20-29min; 1 stable chronic or 2 minor; add add modifier 95 for video, modifier [address] [facility]/21/20[place] Estab. patient 20-29min; 1 stable chronic or 2 minor; add add modifier 95 for video, modifier [address] [facility] 12/21/20[place] Estab. patient 20-29min; 1 stable chronic or 2 minor; add add modifier 95 for video, modifier [address] [facility] [place] 12/21/2024 Vital Signs Date of Collection Vitals 2022-09-03 06:22:07 Height - 170.18 cmWe ight - 65.77 kgBody Mass Index (BMI) - 22.71 kg/m2BP Diastolic - 80.0 mm[Hg]BP Systolic - 120.0 mm[Hg] 2023-05-29 06:40:45 Weight - 68.04 kgBod y Mass Index (BMI) - 23.49 kg/m2BP Diastolic - 80.0 mm[Hg]BP Systolic - 130.0 mm[Hg]Pain Scale - 5.0 {score} 2024-01-07 10:32:23 Weight - 68.04 kgBod y Mass Index (BMI) - 23.49 kg/m2BP Diastolic - 80.0 mm[Hg]BP Systolic - 130.0 mm[Hg]Pain Scale - 4.0 {score} 2024-12-21 13:10:00 Height - 167.64 cmWe ight - 68.04 kgBody Mass Index (BMI) - 24.21 kg/m2Pain Scale - 0.0 {score} Social History Social History Social History Observation Description Effec tive Time Current Smoking Status Former smoker 2025-04-05 1 Sex Male History of Procedures Procedures Service Procedure code Service date Servicing provider Phone# Pain Assessment - NO pain present (1126F) 1126F 2022-09-03 No Data Available No Data A vailable Medication List Documented (1159F) 1159F 2022-09-03 No Data Available No Data Ana Laura ilable Medication Review by prescribing provider or pharmacist documented (1160F) 1160F 2022-09-03 No Data Available No Data Ana Laura ilable Functional Status Assessed (1170F) 1170F 2022-09-03 No Data Available No Data Avail able Advance Care Directive Advance care planning discussion documented in the medical record (1158F) 1158F 2022-09-03 No Data Available No Data Availa ble BMI obtained (3008F) 3008F 2022-09-03 No Data Availab le No Data Available New patient,40-59min; chronic exacerbation, 2 stable chronic or 1 acute illness add add modifier 95 for video (do not use for phone, instead use 68766-02) [address]3513 2022-09-03 No Data Available No Data Availa ble SBP < 130 (3074F) 3074F 2022-09-03 No Data Available No Data Available DBP 80-89 (3079F) 3079F 2022-09-03 No Data Available No Data Available New patient,40-59min; chronic exacerbation, 2 stable chronic or 1 acute illness add add modifier 95 for video (do not use for phone, instead use [id number]) 49687 2023-05-29 No Data Available No Data Availa ble Medication List Documented (1159F) 1159F 2023-05-29 No Data Available No Data Ana Laura ilable Medication Review by prescribing provider or pharmacist documented (1160F) 1160F 2023-05-29 No Data Available No Data Ana Laura ilable Pain Assessment - Pain Documented on a Pain Scale (1125F) 1125F 2023-05-29 No Data Available No Data Ana Laura ilable Advance Care Directive Advance care planning discussion documented in the medical record (1158F) 1158F 2023-05-29 No Data Available No Data Availa ble BMI obtained (3008F) 3008F 2023-05-29 No Data Availab le No Data Available Estab. patient 30-39min; chronic exacerbation, 2 stable chronic or 1 acute illness add add modifier 95 for video, (do not use for phone, instead use 17733-90) 21561 2024-01-07 No Data Available No Data Availa ble Medication List Documented (1159F) 1159F 2024-01-07 No Data Available No Data Ana Laura ilable Medication Review by prescribing provider or pharmacist documented (1160F) 1160F 2024-01-07 No Data Available No Data Ana Laura ilable Pain Assessment - Pain Documented on a Pain Scale (1125F) 1125F 2024-01-07 No Data Available No Data Ana Laura ilable BMI obtained (3008F) 3008F 2024-01-07 No Data Availab le No Data Available Advance Care Directive Advance care planning discussion documented in the medical record (1158F) 1158F 2024-01-07 No Data Available No Data Availa ble Advance care planning discussed and documented advance care plan or surrogate decision-maker was documented in the medical record. (1123F) 1123F 2024-01-07 No Data Available No Data Availa ble Advance care planning discussed and documented in the medical record beneficiary/patient did not wish to or was unable to provide an advance care plan or name a surrogate decision-maker. (1124F) 1124F 2024-01-07 No Data Available No Data Availa ble SBP 130-139 (3075F) 3075F 2024-01-07 No Data Availabl e No Data Available DBP 80-89 (3079F) 3079F 2024-01-07 No Data Available No Data Available Functional Status Assessed (1170F) 1170F 2024-01-07 No Data Available No Data Avail able Estab. patient 20-29min; 1 stable chronic or 2 minor; add add modifier 95 for video, modifier 93 for phone 14044 2024-12-21 No Data Available No Data Availa ble Medication List Documented (1159F) 1159F 2024-12-21 No Data Available No Data Ana Laura ilable Medication Review by prescribing provider or pharmacist documented (1160F) 1160F 2024-12-21 No Data Available No Data Ana Laura ilable Functional Status Assessed (1170F) 1170F 2024-12-21 No Data Available No Data Avail able Advance Care Directive Advance care planning discussion documented in the medical record (1158F) 1158F 2024-12-21 No Data Available No Data Availa ble Advance care planning discussed and documented advance care plan or surrogate decision-maker was documented in the medical record. (1123F) 1123F 2024-12-21 No Data Available No Data Availa ble Pain Assessment - NO pain present (1126F) 1126F 2024-12-21 No Data Available No Data A vailable Functional Status Functional Category Effective Dates DIL and grandson help with g etting dresses and showers as needed per DIL. 2024-12-21 ADL: Bathing Needs Assistanc e , Dressing Needs Assistance , Eating Independent , Ambulation Needs Assistance , Transferring Needs Assistance and Toileting Needs Assistance 2024-12-21 IADL: Medication Needs David tance , Meal Prep Needs Assistance , Shopping Needs Assistance , Driving or Public Transport Needs Assistance , Housework Needs Assistance , Finances Needs Assistance 2024-12-21 How many falls within the last 6 months? None 2024-12-21 Near falls within the last 6 months? Non e 2024-12-21 Do you feel unsteady on your feet? Yes Do you worry about falling? Yes DME used with ambulation: Kate lchair 2024-12-21 Social Supports - # of Inter actions with Friends/Family in a typical week: Daily 2024-12-21 Mental Status Status Date DIL denies hx of dementia but states He forgets many things. 2024-12-21 Cognition Status: Oriented t o Person, Place - confused on Time per DIL this is baseline. Dementia - moderate (needs ADL assistance) 2024-12-21 Assessments Date of Service Assessments 2022-09-03 06:22:07 HyperlipidemiaOsteop orosisAllergic rhinitisInsomniaDermatitisChronic constipation 2023-05-29 06:40:45 HyperlipidemiaOsteop orosisAllergic rhinitisInsomniaDermatitisChronic constipationConstipationThyroid mass of unclear etiologyVaricose veins of lower extremities with complications 2024-01-07 10:32:23 Other problems relat ed to medical facilities and other health care<Add contingency plans here>HyperlipidemiaAtorvastatinEncouraged physical activityDiet low in saturated and trans fatHealthy diet, including lots of fruits and vegetables.OsteoporosisVitamin D Eat calcium rich food, take calcium and vitamin D and do as much exercise as tolerableAllergic rhinitisFluticasoneCertrazineNasal rinse. StableInsomniaTrazodoneStable, able to sleep enough hours and feels restedDermatitisDermarest CreamChronic constipationSenna / Colace for constipationHad colonoscopy 10 years agoConstipationContinue stool softeners/laxativesHigh fiber diet, plenty of fluidsregularThyroid mass of unclear etiologyFollowed by endocrinology Dr. Lucia Lou for new mass on thyroid. Goes every 3 months for drainage. No more drainage. No new medications orally per DILVaricose veins of lower extremities with complicationsPCP is aware, taking pain medication (Tylenol)Visible on exam telehealthOther problems related to medical facilities and other health care.When member to call: 1. If bp is elevated sbp>150; dbp>90 or symptomatic-h/a, dizziness, cp, sob. 2. if there is a fall 3. if BS >300 or BS<90 or symptomatic; i.e., dizzy, off balance , shaky, general weakness. 4. if UTI symptoms arise-urinary frequency, dysuria, low abd pain. 5. if pain in knees increases/ or joint pain increased Please remember to [facility]. Follow-up with [facility] as needed for any acute or disease education needs that may arise 27/05.what should be done when the member calls: see each individual diagnosis for contingency planBilateral knee painBilateral knee pain. dull and aching, worse with ambulation, the trial of lidcocaine cream.Moderate pain, trial of lidocaine creamRight hip painPain started 30 years ago. Chronic pain of right hip. No pain in lower back. Shooting pain. From right hip to knee. No pain in groin area. Will see PCP for MRI in April. 2024-12-21 13:10:00 Thyroid mass of uncl ear etiologyHyperlipidemiaOsteoporosisAllergic rhinitisInsomniaDermatitisGeneralized pruritusChronic constipationVaricose veins of lower extremities with complicationsOther problems related to medical facilities and other health careBilateral knee painRight hip painMemory impairmentMinimal recurrent major depressive disorder Plan of Care Date of Service Plans 2022-09-03 06:22:07 Medication Review by prescribing provider or pharmacist documented (1160F)Medication List Documented (1159F)Functional Status Assessed (1170F)Advance Care Directive Advance care planning discussion documented in the medical record (1158F)BMI obtained (3008F)SBP < 130 (3074F)DBP 80-89 (3079F)Televideo new patient,40-59min; chronic exacerbation, 2 stable chronic or 1 acute illness add modifier 95Pain Assessment - Pain Documented (1125F)Continue to see PCP. Follow-up with [facility] as needed for any acute or disease education needs that may arise.AtorvastinFollows PCPVitamin DFollows PCPFluticasoneFollows PCPTrazodoneFollows PCPDermarest CreamFollows PCPSenna tabsFollows PCP 2023-05-29 06:40:45 Pain Assessment - Pa in Documented (1125F)Medication Review by prescribing provider or pharmacist documented (1160F)Medication List Documented (1159F)Functional Status Assessed (1170F)Advance Care Directive Advance care planning discussion documented in the medical record (1158F)BMI obtained (3008F)SBP 130-139 (3075F)DBP 80-89 (3079F)Televideo new patient,40-59min; chronic exacerbation, 2 stable chronic or 1 acute illness add modifier 95Advance care planning discussed and documented advance care plan or surrogate decision-maker was documented in the medical record. (1123F)Advance care planning discussed and documented in the medical record beneficiary/patient did not wish to or was unable to provide an advance care plan or name a surrogate decision-maker. (1124F)Continue to see PCP. [facility] or disease education needs that may arise.AtorvastatinVitamin DFluticasoneCertrazineTrazodoneDermarest CreamSenna / Colace for constipationHad colonoscopy 10 years agoContinue stool softeners/laxativesHigh fiber diet, plenty of fluidsFollowed by endocrinology Dr. Lucia Lou for new mass on thyroid. Goes every 3 months for drainage. No new medications orally per DILPCP is aware, taking pain medication (Tylenol)Visible on exam telehealth 2024-01-07 10:32:23 Refill Fluticasone P ropionate 50 MCG/ACT Suspension Nasal USE 1 SPRAY IN EACH NOSTRIL TWO TIMES A DAY #16 gram RFx1 Do NOT substitute - [facility].Refill Eye Itch Relief 0.035 % Solution Ophthalmic INSTILL 1 DROP INTO AFFECTED EYES TWO TIMES A DAY NEEDED FOR ALLERGY SYMPTOMS #5 milliliter RFx1 Do NOT substitute - [facility].New Lidocaine-Prilocaine 2.5-2.5 % Crm 1gm to affected area BID PRN neuropathic pain #50 gram [id number] Review by prescribing provider or pharmacist documented (1160F)Medication List Documented (1159F)Functional Status Assessed (1170F)Advance Care Directive Advance care planning discussion documented in the medical record (1158F)BMI obtained (3008F)SBP 130-139 (3075F)DBP 80-89 (3079F)Televideo 30-39min; chronic exacerbation, 2 stable chronic or 1 acute illness add modifier 95Advance care planning discussed and documented advance care plan or surrogate decision-maker was documented in the medical record. (1123F)Advance care planning discussed and documented in the medical record beneficiary/patient did not wish to or was unable to provide an advance care plan or name a surrogate decision-maker. (1124F)Pain Assessment - Pain Documented (1125F)Continue to see PCP. Follow-up with [facility] as needed for any acute or disease education needs that may arise.Remember toContinue seeing providers as recommenedTake all medications as prescribed2:Call me ifYou feel sick or illYou notice a change in behaviorYou have questions or concerns3:Keep it upBeing as independent as possible, but allow caregivers to assist where needed. 2024-12-21 13:10:00 Functional Status As sessed (1170F)Advance Care Directive Advance care planning discussion documented in the medical record (1158F)Advance care planning discussed and documented advance care plan or surrogate decision-maker was documented in the medical record. (1123F)Estab. patient 20-29min; 1 stable chronic or 2 minor; add add modifier 95 for video, modifier 93 for phoneMedication List Documented (1159F)Pain Assessment - NO pain present (1126F)Medication Review by prescribing provider or pharmacist documented (1160F)BMI obtained (3008F)Continue to see PCP. Follow-up with [facility] as needed for any acute or disease education needs that may arise.Followed by endocrinology Dr. Lucia Lou for new mass on thyroid. Goes every 3 months for drainage. No more drainage. No new medications orally per DIL12/21/2024Monitored every 6 months by PCP. DIL reports biopsy was attempted but was not able to get sample and biopsy was to painful so now they are just monitoring every 6 months. Denies impact on swallowing or managing secretions.AtorvastatinEncouraged physical activityDiet low in saturated and trans fatHealthy diet, including lots of fruits and vegetables.12/21/24Rx: Atorvastatin 10 mg daily Heart healthy dietPatient instructed on the importance of taking medications as prescribed. Routine follow up for surveillance. Continue to follow up with PCPVitamin D Eat calcium rich food, take calcium and vitamin D and do as much exercise as tolerable 12/21/24Rx: Eat foods high in calcium and vitamin D. Be active for at least 30 minutes a day. Avoid smoking, limit alcohol intake. Sit up after taking alendronate for at least 30 minutes.FluticasoneCertrazineNasal rinse. Stable12/21/24Rx: Cetirizine 10 mg, fluticasone 50 mcg, Eye itch relief 0.035%Controlled w/ medication use. Follow up with PCP.TrazodoneStable, able to sleep enough hours and feels rested12/21/24Rx: Trazadone 50 mg as needed Controlled w/ medication use. Follow up with PCP.Dermarest Cream12/21/2024Rx: Dermarest 1% cream Denies skin concerns- rash/wounds but does endorse generalized pruritisContinue stool softeners/laxativesHigh fiber diet, plenty of fluidsregularSenna / Colace for constipationHad colonoscopy 10 years 12/21/2024Rx: Docusate 100 mg as needed, senna 8.6 mg as needed, stool softner/laxatitive 50/8.6 as needed Last BM: 12/20/24 per member. Controlled w/ medication use.PCP is aware, taking pain medication (Tylenol)Visible on exam telehealth12/21/24Rx: Atorvastatin 10 mg at bedtime. Denies lower extremity edema or skin changes at time of visit. DIL reports occasional bilateral lower extremity edema that comes and goesDEMENTIA CONTINGENCY PLANLast updated: 12/21/2024Member to call for the following symptoms: DeliriumPlanned intervention: Encourage increased fluid intake/ Ask about last bowel movement/ Assess for UTI symptoms; if present, start Bactrim DS BID x3 days/ Melatonin 3mg at bedtime/ Limit extra stimulationHip Pain started 30 years ago. Chronic pain of right hip. No pain in lower back. Shooting pain. From right hip to knee. No pain in groin area. Will see PCP for MRI in April. Bilateral knee pain. dull and aching, worse with ambulation, the trial of lidcocaine cream.Moderate pain, trial of lidocaine cream12/21/24RX: Lidocaine-Prilocaine 2.5-2.5 % Crm 1gm to affected area BID PRN neuropathic pain, Tylenol 650 mg Tab Take 1- 2 tablets Q 8 hrs prn, Icy Hot Extra Strength 10-30 % Crm 1 application BID PRNMember endorses intermittent chronic bilateral knee pain and right hip pain that impacts ambulation. Member uses manual wheelchair for ambulation. Denies recent falls. Encouraged to use DME and encouraged fall precautions.2/17/25Member alert to self, place and confused on time. This is baseline per DIL. DIL denies member being dx with dementia. DIL states just memory issues. Member lives with DIL and grandchildren. Follow up with PCP for further evaluation.12/21/24Rx: Trazadone 50 mg (for insomnia)Denies anxiety at time of visit. PCP manages. PHQ9: 4Denies SI/HI. Notify provider with any changes in behavior, difficulty sleeping, or new/worsening depressive symptoms. Continue to follow up with PCP/Psych. Goals Date Goal 2022-09-03 Remember to 2022-09-03 Call me if 2022-09-03 Keep it up 2023-05-[address] up [address] regarding loose dentures. Establish care with new dentist using Cust. Svc # on back of ins card. 2023-05-29 Continue to follow w [facility] for thyroid mass 2024-01-07 Trial of lidocaine gio tracy 2024-01-07 .1: 2024-12-21 Continue taking medi cations as directed and keep all follow up appointments with established PCP and Specialist. Health Concerns Date Concern 2024-12-21 Visit completed aure josue audio/video. Informed verbal consent was obtained from this patient to communicate and provide care using virtual and other telecommunications tools. This patient has been explained the risks, if any, related to the encounter. I explained that care provided through video or audio communication cannot replace the need for physical examination or an in-person visit for some disorders or urgent problems. Patient/Guardian agreed to visit via telehealth. Today, patient has chief complaint of: follow up care and comprehensive review.Reviewed Allergies, Medications, Active Medical conditions, past medical/surgical history, Social history. 2024-12-21 Most recent hospital stay(s) or ER visit(s) and precipitating factors: Denies 2024-12-21 Open HEDIS Measure r brittney: Reviewed 2024-12-21 Cantonese interprete r used to complete visit today 2024-12-21 DIL helping complete visit today.
[2025-04-24 11:20] LABS: MANUAL DIFF FLAG NO
[2025-04-24 11:22] LABS: Appearance Urine Clear; Color Urine Yellow; Glucose Urine UA Negative (Negative); Leukocyte Esterase Urine Negative (Negative); Nitrite Urine Negative (Negative); Urine Blood Negative (Negative); Urine Ketones Negative (Negative); Urine Protein Negative (Neg-Trace)
[2025-04-24 11:25] LABS: Basophils Percent Auto 0.8 % (0-2); Eosinophils Absolute Auto 0.3 X10*3/uL (0.0-0.4); Eosinophils Percent Auto 5.1 % (0-4); Hematocrit 41.2 % (42.0-52.0); Hemoglobin 13.9 g/dl (14.0-18.0); Imm Gran Abs Auto 0.02 X10*3/uL (0.00-0.03); Imm Gran Pct Auto 0.4 % (0.0-0.4); Lymphocytes Absolute Auto 1.3 X10*3/uL (1.2-4.9); Lymphocytes Percent Auto 24.1 % (20-40); Mean Corpuscular HGB Conc 33.7 g/dl (31.0-36.0); Mean Platelet Volume 9.7 fL (9.4-12.4); Monocytes Absolute Auto 0.5 X10*3/uL (0.1-1.2); Monocytes Percent Auto 9.1 % (2-11); Neutrophils Absolute Auto 3.2 x10*3/uL (2.0-8.3); Neutrophils Percent Auto 60.5 % (45-73); Platelet Count 138 X10*3/uL (160-400); Red Blood Count 4.48 X10*6/uL (4.60-5.80); Red Cell Distribution Width 12.4 % (11.0-16.0); White Blood Count 5.3 X10*3/uL (4.8-10.8)
[2025-04-24 11:46] LABS: Alanine Aminotransferase 15 U/L (0-40); Alkaline Phosphatase 60 U/L (39-117); Anion Gap 11 (12-20); Aspartate Amino Transferase 28 U/L (5-37); Bilirubin Total 0.9 mg/dL (0.0-1.0); Blood Urea Nitrogen 20 mg/dL (9-16); Calcium 8.9 mg/dL (8.4-10.2); Carbon Dioxide 25 mmol/L (22-29); Chloride 110 mmol/L (96-108); Cholesterol 148 mg/dL (<200); Estimated Glomerular Filt Rate 59; Glucose Fasting 97 mg/dL (60-99); HDL Cholesterol 57 mg/dL (>40); LDL Cholesterol Calculated 77 mg/dL (<100); Potassium 4.4 mmol/L (3.3-5.1); Sodium 142 mmol/L (135-145); Total Protein 6.9 g/dL (6.5-8.0); Triglycerides 73 mg/dL (<150)
[2025-04-24 11:58] LABS: TSH reflex Free T4 1.37 uIU/mL (0.32-4.0); Vitamin D 25-OH Total 54.1 ng/mL (>30)
[2025-04-24 12:07] LABS: Vitamin B12 475 pg/mL (200-900)
== END 2025-04-24 10:10 | disposition home or self-care (01) ==
LOC: HO.HMGCLDS 10:09
PROVIDERS: PCP Internal Medicine; Visit Provider Internal Medicine
DX: E78.00 Pure hypercholesterolemia, unspecified (principal); E55.9 Vitamin D deficiency, unspecified; E53.8 Deficiency of other specified B group vitamins; D64.9 Anemia, unspecified; R30.0 Dysuria
CPT/HCPCS: 36415; 80053; 80061; 81003; 82306; 82607; 82746; 84443; 85025

== ENCOUNTER 2025-04-30 09:41 | Outpatient (AMB) | payer OTHER, SELFPAY ==
[2025-04-30 09:47] VITALS: BP 126/86; PULSE 52; O2SAT 99; BMI 24.6
--- NOTE | 2025-04-30 09:47 | MHC.PC.OV ---
Vital Signs 04/30/25 09:47 Height 5 ft 6 in Weight 152 lb 2 oz BMI 24.6 BP 126/86 Blood Pressure Location Lt brachial Position Sitting Pulse 52 Pulse Source Pulse Oximeter Pulse Oximetry (%) 99 Oxygen Delivery Method Room Air Intake Visit Reasons: hyperlipidemia, constipation Family Engagement Specialist Required: No Accompanied by: Self / Same As Patient Allergies No Known Allergies Allergy (Verified 04/30/25 10:16) Medication List - Last Reconciled 04/30/25 by Davidson Glaser MD atorvastatin 10 mg PO BEDTIME 90 days [BATH BENCH WITH BACK As directed] [BATHTUB STEEL WHITE BAR As directed] betamethasone valerate 0.1% 1 appl topical DAILY PRN cetirizine 10 mg PO DAILY PRN 90 days cholecalciferol (vitamin D3) 50 mcg PO DAILY 90 days [CHROME GRAB BAR As directed] clobetasol 0.05% 1 appl topical BID docusate sodium (Dulcolax Stool Softener (docusate)) Take 1 to 2 capsules orally daily PRN for constipation 90 days fluticasone propionate 50 mcg/actuation 1 spray intranasal BID 30 days [FOLDING ALUMINUM ROLLATOR As directed] food supplemt, lactose-reduced (Ensure Enlive) 1 ea PO TID 30 days food supplemt, lactose-reduced (Ensure Original oral liquid) 1 ea PO TID hydrocortisone 1% 1 appl topical BID PRN 30 days ketotifen fumarate 0.025%(0.035%) 1 drp ophthalmic (eye) BID PRN lidocaine 4% 1 patch topical DAILY PRN meloxicam 7.5 mg PO DAILY PRN 30 days [QUAD CANE As directed] [RAISED TOILET SEAT As directed] sennosides-docusate sodium 8.6-50 mg (Senokot-S) 1 tab-cap PO BID PRN 30 days [TOILET SAFETY FRAME As directed] [TRANSFER BENCH As directed] trazodone 50 mg PO BEDTIME PRN 90 days Tobacco use date assessed: 04/30/25 Fall risk assessment: No Falls in past year Last assessed Fall Risk: 04/30/25 Dental Screening Dental Screen Date: 04/30/25 Did you have a dental visit in the last 12 months?: No Did you have a dental problem in the last 6 months where you did not have access to dental care?: No Was dental information given to patient?: No HPI hyperlipidemia, constipation HPI Details Patient comes in today for his follow up visit States that he feels okay except for some on and off aches and pain over his hands/fingers and on his feet/toes for the past few weeks He denies any headaches or dizziness Denies any chest pains, no increased SOB No nausea/vomiting, no abdominal pain No change in bowel habits noted Needs a few of his Rx refilled He would also like to know how his thyroid US done back in November 2024 came out He had his follow up labs done last week - to discuss his results [facility] Medical History Insomnia Allergic rhinitis Vitamin D deficiency Thyroid nodule Hearing loss in left ear Constipation Thrombophlebitis Radicular pain of left lower extremity Pure hypercholesterolemia Arthritis of left hip Osteoarthritis of left knee Lumbar spondylosis Surgical History Hx of colonoscopy History of biopsy Family History Other No significant family history Social History Household Members: Family Housing: House Alcohol intake: never Patient Tobacco Use Status: Never used Tobacco e-Cigarette/Vaping Use: Never Used Second Hand Smoke Exposure: No service: No Current occupational status: retired Current occupational exposures/hazards: No Cognitive needs: No Hearing needs: No Vision needs: Yes (Glasses) Questionnaire PHQ-9 Over the last 2 weeks, how often have you been bothered by any of the following problems? 1. Little interest or pleasure in doing things: not at all 2. Feeling down, depressed, or hopeless: not at all 3. Trouble falling or staying asleep, or sleeping too much: not at all 4. Feeling tired or having little energy: several days 5. Poor appetite or overeating: not at all 6. Feeling bad about yourself - or that you are a failure or have let yourself or your family down: not at all 7. Trouble concentrating on things, such as reading the newspaper or watching television: not at all 8. Moving or speaking so slowly that other people could have noticed. Or the opposite - being so fidgety or restless that you have been moving around a lot more than usual: not at all 9. Thoughts that you would be better off or of hurting yourself in some way: not at all Total score: 1 Depression Screening Interpretation: Negative Depression Screening Done: Yes 87130 - PHQ-9 Billing: Yes Source: Developed by Drs. Seth Yu, Merary Reaves, Jn Vogel and colleagues, with an educational joe from [employer]. Thrive Questionnaire Date Thrive assessed: 04/30/25 I am a: Patient What is your living situation today?: I have a steady place to live Within the past 12 months, did the food you bought not last and you didn't have the money to get more?: Never true Within the past 12 months, did you worry whether your food would run out before you got money to buy more?: Never true Do you have trouble paying for medicines?: No Do you have trouble getting transportation to medical appointments?: No Do you have trouble paying your heating and electricity bill?: No Do you have trouble taking care of your child, family member or friend?: No Do you have trouble with day-to-day activities such as bathing, preparing meals, shopping, managing finances, etc.?: Yes Are you currently unemployed and looking for a job?: No Are you interested in more education?: No Please select the resources that you would like help with: None Currently or been in a relationship where the following occur: No concerns reported THRIVE Score: 0 AUDIT C Alcohol Use Questionnaire (AUDIT-C) 1. How often do you have a drink containing alcohol?: Never 3. How often do you have six or more drinks on one occasion?: Never Total Score: 0 Score Reviewed/Action Taken: Yes SANTI-7 AMB Questionnaire SANTI-7 Date SANTI - 7 assessed: 04/30/25 Feeling nervous, anxious, or on edge: 0 = Not at all Not being able to stop or control worryin = Not at all Worrying too much about different things: 0 = Not at all Trouble relaxin = Several days Being so restless that it is hard to sit still: 0 = Not at all Becoming easily annoyed or irritable: 0 = Not at all Feeling afraid as if something awful might happen: 0 = Not at all Total SANTI-7 score (0-4 normal; 5-9 mild; 10-14 moderate; 15-21 severe): 1 Source: Developed by Drs. Seth Yu, Merary Reaves, Jn Vogel and colleagues, with an educational joe from [employer]. Review of Systems Const Denies chills, Denies fatigue, Denies fever(s) and Denies headache(s) ENT Denies dysphagia, Denies dizziness, Denies otalgia, Denies headache(s), Reports hearing loss (in both ears, per daughter), Denies neck pain, Denies odynophagia and Denies sore throat Card Denies chest pain, Denies irregular heart rhythm, Denies palpitations and Denies dyspnea Resp Denies chest congestion, Denies cough and Denies dyspnea GI Denies abdominal pain, Reports constipation (on and off), Denies dysphagia, Denies heartburn, Denies diarrhea, Denies nausea, Denies odynophagia and Denies vomiting Denies difficulty urinating, Denies dysuria and Denies urinary frequency Musc Details: (+) recurrent mild right heel pain Reports back pain (over the lower back, on and off), Reports arthralgias (in hands/fingers and feet/toes, on and off) and Denies neck pain Skin/Breast Denies rash Neuro Denies dizziness, Denies headache(s) and Denies paresthesias Endo Denies fatigue and Denies palpitations Physical exam (Primary Care) Vital Signs: Last Vital Signs Pulse 52 04/30/25 09:47 BP 126/86 04/30/25 09:47 Pulse Ox 99 04/30/25 09:47 Oxygen Delivery Method Room Air 04/30/25 09:47 BMI result Body Mass Index 24.6 Tobacco/Smoking Status: Tobacco use Status Tobacco use date assessed 04/30/25 04/30/25 09:50 Patient Tobacco Use Status Never used Tobacco 04/30/25 09:50 e-Cigarette/Vaping Use Never Used 04/30/25 09:50 PHQ-9: PHQ-9 Score PHQ-9: Total score 1 04/30/25 10:18 Depression Screening Interpretation: Negative Thrive Assessment: Date of Thrive Assessment Date Thrive assessed 04/30/25 04/30/25 09:50 Currently or been in a relationship where the following occur: No concerns reported Const General: no acute distress and alert HENMT Ears: TM's normal bilaterally and EAC's normal Throat: Yes posterior oropharynx normal and Yes tonsils normal (no TP congestion) Neck Neck: Yes no lymphadenopathy and Yes supple Thyroid: Thyroid normal Resp Auscultation: clear to auscultation bilaterally, no rales and no wheezes Cardio Rate: regular rate Rhythm: regular rhythm Heart sounds: no murmurs GI Palpation (GI): Soft to palpation and nontender Auscultation: normal bowel sounds General: Yes no CVA tenderness Back/Spine/Pelvis Back: no CVA tenderness Thoracic/Lumbar Spine: lumbar spinal tenderness (mild) Skin Rashes: no rashes Extrem General: Yes no clubbing, cyanosis or edema Right lower extremity: foot Details: tenderness Location: of the calcaneus Results Reviewed Results Reviewed: Laboratory Tests 04/24/25 10:21 WBC 5.3 Hgb 13.9 L Hct 41.2 L Plt Count 138 L Sodium 142 Potassium 4.4 Creatinine 1.17 Estimated GFR 59 Fasting Glucose 97 Calcium 8.9 AST 28 ALT 15 Triglycerides 73 Cholesterol 148 LDL Cholesterol, Calc 77 HDL Cholesterol 57 Vitamin B12 475 25-OH Vitamin D Total 54.1 TSH 1.37 Ur Specific [place] 1.020 Urine Protein Negative Urine Glucose (UA) Negative Urine Blood Negative Urine Nitrite Negative Ur Leukocyte Esterase Negative Coding Level of Care Code Est Pt Level 4 (67356) Diagnoses Pure hypercholesterolemia E78.00 Thyroid nodule E04.1 Vitamin D deficiency E55.9 Mild anemia D64.9 Seasonal allergic rhinitis due to pollen J30.1 Allergic rhinitis seasonality: seasonal Allergic rhinitis trigger: pollen Constipation, unspecified constipation type K59.00 Constipation type: unspecified constipation type Primary osteoarthritis, left shoulder M19.012 Lumbar spondylosis M47.816 Calcaneal spur of right foot M77.31 Hearing loss of left ear, unspecified hearing loss type H91.92 Hearing loss type: unspecified Insomnia, unspecified type G47.00 Insomnia type: unspecified Additional Codes PHQ-9 - 10650 - PHQ-9 Billing: Yes ([id number]) Assessment & Plan Assessment & Plan (1) Pure hypercholesterolemia: Code(s): E78.00 - Pure hypercholesterolemia, unspecified Category: Medical Plan: Results of his labs done last week reviewed and discussed with patient and his daughter Reinforced low cholesterol diet Continue Atorvastatin 10 mg QD Will have him recheck his labs and fasting lipids in 6 months for follow up (2) Thyroid nodule: Code(s): E04.1 - Nontoxic single thyroid nodule Category: Medical Plan: This was initially diagnosed in 2020 S/P FNA Bx in 12/2021 - pathology came out benign Repeat thyroid US done last year showed (+) significant decrease in the size of the previous left thyroid cyst - he has been advised that he may need to consider either ablation or resection if thyroid nodule recurs He had repeat FNA done back in March 2023 - aspirate was non-diagnostic on pathology as patient was reportedly unable to tolerate multiple passes during the biopsy process Patient was advised option of repeat FNA but he declined as he felt that the procedure was too painful to undergo again He did agree to a repeat thyroid US in 6 months for follow up and will think about repeat FNA only if repeat imaging shows any concerning changes in his thyroid Repeat thyroid US done in September 2023 revealed (+) 1.6 cm mid left thyroid lobe with increased vascularity - recommended FNA Bx but patient remains adamant that he does not want another Bx He was seen by Dr. Vazquez on 11/28/2023 for endocrinology follow up and as patient is not interested in any further intervention, was returned to the care of his PCP He was advised that we can refer him back for any changes in his condition or situation and we can just continue surveillance with yearly thyroid ultrasound for now Repeat thyroid US in November 2024 revealed (+) slightly smaller TI-RADS Category 5 nodule measuring 1.4 cm in the left lower pole. Given stability over time this is consistent with a benign entity although further follow-up could be considered as felt warranted. There are several benign colloid cysts that are mostly unchanged from before and the remainder of the thyroid gland is normal (3) Vitamin D deficiency: Code(s): E55.9 - Vitamin D deficiency, unspecified Category: Medical Plan: Continue Vitamin D3 2000 units QD (4) Mild anemia: Code(s): D64.9 - Anemia, unspecified Category: Medical Plan: This was previously corrected but he is again slightly anemic on his recent labs, with H/H at 13.9/41.2% Iron function tests and B12 level done with his previous labs all came back normal Will continue to monitor his CBC regularly (5) Allergic rhinitis: Code(s): J30.9 - Allergic rhinitis, unspecified Category: Medical Qualifiers: Allergic rhinitis seasonality: seasonal Allergic rhinitis trigger: pollen Qualified Code(s): J30.1 - Allergic rhinitis due to pollen Plan: Continue Fluticasone 50 mcg nasal spray BID PRN and Cetirizine 10 mg QD PRN (6) Constipation: Code(s): K59.00 - Constipation, unspecified Category: Medical Qualifiers: Constipation type: unspecified constipation type Qualified Code(s): K59.00 - Constipation, unspecified Plan: Patient is encouraged again on increased oral fluids and dietary fiber Continue Docusate 100 mg 1 to 2 capsules QD PRN; will start him additionally on Senokot 8.6-50 mg BID PRN (7) Primary osteoarthritis, left shoulder: Code(s): M19.012 - Primary osteoarthritis, left shoulder Category: Medical Plan: Left shoulder x-rays done in July 2022 revealed (+) mild to moderate glenohumeral osteoarthritis Patient reports (+) symptomatic improvement with cortisone injection from orthopedics (8) Lumbar spondylosis: Code(s): M47.816 - Spondylosis without myelopathy or radiculopathy, lumbar region Category: Medical Plan: Reinforced activity and weight lifting restrictions to avoid aggravating his low back pain (9) Calcaneal spur of right foot: Code(s): M77.31 - Calcaneal spur, right foot Category: Medical Plan: Follow up with Podiatry as scheduled (10) Hearing loss in left ear: Code(s): H91.92 - Unspecified hearing loss, left ear Category: Medical Qualifiers: Hearing loss type: unspecified Qualified Code(s): H91.92 - Unspecified hearing loss, left ear Plan: Reports that he still experiences frequent tinnitus in his left ear Have discussed with patient previously ways to help manage his tinnitus and have advised him that there is really no cure for hearing loss He has declined referral to a human resources support specialist for fitting of hearing aids as he does not like to wear them and they are not really covered by his insurance (11) Insomnia: Code(s): G47.00 - Insomnia, unspecified Category: Medical Qualifiers: Insomnia type: unspecified Qualified Code(s): G47.00 - Insomnia, unspecified Plan: Sleep hygiene reinforced Continue Trazodone 50 mg Q HS PRN Plan Follow up in 6 months Orders: Orders Complete Blood Count Auto Diff 6 Months D64.9 - Anemia, unspecified Comprehensive [place]. Panel Fast 6 Months E78.00 - Pure hypercholesterolemia, unspecified TSH reflex Free T4 6 Months E78.00 - Pure hypercholesterolemia, unspecified UA CC w/rflx Micro + Cult 6 Months R30.0 - Dysuria Lipid Panel 6 Months E78.00 - Pure hypercholesterolemia, unspecified Vitamin D 25-OH Total 6 Months E55.9 - Vitamin D deficiency, unspecified Medications: Refilled fluticasone propionate 50 mcg/actuation administer into each nostril 1 spray intranasal BID 16 grams 5RF 30 days atorvastatin 10 mg PO BEDTIME 90 tabs 1RF 90 days meloxicam TAKE WITH FOOD AND ONLY NEEDED FOR PAIN 7.5 mg PO DAILY PRN 30 tabs 0RF pain 30 days M47.816 - Spondylosis without myelopathy or radiculopathy, lumbar region
--- OUTSIDE RECORDS SUMMARY | 2025-04-30 10:11 | XMS_ITS ---
Author Name Nicholas Real NP Address [address] [place] [address] Phone [phone] Organization [facility] Care Team Providers Care Unhairer Name Role Phone Richard Real Unavailable [phone] JULI LUCIA Unavailable [phone] Davidson Glaser Unavailable [phone] Reason for Referral Not Available Allergies, adverse [...] NEEDED FOR CONSTIPATION 2024-10-30 No Data Available [facility] Fish Oil 1200 mg Cap 1 capsule [...] Pain Assessment - NO pain present (1126F) [facility] [place] Pain Assessment - NO pain present (1126F) [facility] [place] Pain Assessment - NO pain present (1126F) [facility] [place] Pain Assessment - NO pain present (1126F) [facility] [place] Pain Assessment - NO pain present (1126F) [facility] [place] Pain Assessment - NO pain present (1126F) [facility] [place] Pain Assessment - NO pain present (1126F) [facility] [place] Hyperlipidemia, unspecifiedAge-related osteoporosis without current pathological fractureAllergic rhinitis, unspecifiedInsomnia, unspecifiedDermatitis, unspecifiedOther constipation Pain Assessment - NO pain present (1126F) [facility] Pain Assessment - NO pain present (1126F) [facility] New patient,40-59min; chronic exacerbation, 2 stable chronic or 1 acute illness add add modifier 95 for video (do not use for phone, instead use 73043-92) [facility] 05[place]2023 Hyperlipidemia, unspecifiedAge-related osteoporosis without current pathological fractureAllergic rhinitis, unspecifiedInsomnia, unspecifiedDermatitis, unspecifiedOther constipationOther specified disorders of thyroidVaricose veins of unsp lower extremities w oth complications New patient,40-59min; chronic exacerbation, 2 stable chronic or 1 acute illness add add modifier 95 for video (do not use for phone, instead use 04425-99) [facility] [place] New patient,40-59min; chronic exacerbation, 2 stable chronic or 1 acute illness add add modifier 95 for video (do not use for phone, instead use 37029-68) [facility] New patient,40-59min; chronic exacerbation, 2 stable chronic or 1 acute illness add add modifier 95 for video (do not use for phone, instead use 13948-82) [facility] New patient,40-59min; chronic exacerbation, 2 stable chronic or 1 acute illness add add modifier 95 for video (do not use for phone, instead use 72752-37) [facility] New patient,40-59min; chronic exacerbation, 2 stable chronic or 1 acute illness add add modifier 95 for video (do not use for phone, instead use 23692-07) [facility] 05[place] Estab. patient 30-39min; chronic exacerbation, 2 stable chronic or 1 acute illness add add modifier 95 for video, (do not use for phone, instead use 15591-26) [facility] Other problems related to medical [...] (do not use for phone, instead use 52182-32) [facility] [place] 01/07/[place] Estab. patient 30-39min; chronic exacerbation, 2 stable chronic or 1 acute illness add add modifier 95 for video, (do not use for phone, instead use 58188-10) [facility] Estab. patient 30-39min; chronic exacerbation, 2 stable chronic or 1 acute illness add add modifier 95 for video, (do not use for phone, instead use 68592-28) [facility] [place] 01/07/[place] Estab. patient 30-39min; chronic exacerbation, 2 stable chronic or 1 acute illness add add modifier 95 for video, (do not use for phone, instead use 82990-46) [facility] Estab. patient 30-39min; chronic exacerbation, 2 stable chronic or 1 acute illness add add modifier 95 for video, (do not use for phone, instead use 60584-68) [facility] [place] 01[place] Estab. patient 30-39min; chronic exacerbation, 2 stable chronic or 1 acute illness add add modifier 95 for video, (do not use for phone, instead use 17591-50) [facility] [place] 01[place] Estab. patient 30-39min; chronic exacerbation, 2 stable chronic or 1 acute illness add add modifier 95 for video, (do not use for phone, instead use 33702-47) [facility] [place] Estab. patient 30-39min; chronic exacerbation, 2 stable chronic or 1 acute illness add add modifier 95 for video, (do not use for phone, instead use 37505-79) [facility] [place] 01/07/2024 Estab. patient 30-39min; chronic exacerbation, 2 stable chronic or 1 acute illness add add modifier 95 for video, (do not use for phone, instead use 75779-09) [facility] [place] 01/07/2024 Estab. patient 30-39min; chronic exacerbation, 2 stable chronic or 1 acute illness add add modifier 95 for video, (do not use for phone, instead use 03622-80) [facility] [place] 01/07/20[place] Estab. patient 20-29min; 1 stable chronic or 2 minor; add add modifier 95 for video, modifier 93 for phone [facility] 12/[place]/2024 Other specified disorders of thyroidHyperlipidemia, [...] modifier 95 for video, modifier 93 for [facility] [place] Estab. patient 20-29min; 1 stable chronic or 2 minor; add add modifier 95 for video, modifier 93 for [facility] [place] 12/21/2024 Estab. patient 20-29min; 1 stable chronic or 2 minor; add add modifier 95 for video, modifier 93 for [facility] [place] 12/21/2024 Estab. patient 20-29min; 1 stable chronic or 2 minor; add add modifier 95 for video, modifier 93 for [facility] [place] 12/21/2024 Estab. patient 20-29min; 1 stable chronic or 2 minor; add add modifier 95 for video, modifier 93 for [facility] [place] 12/21/2024 Estab. patient 20-29min; 1 stable chronic or 2 minor; add add modifier 95 for video, modifier 93 for [facility] [place] 12/21/2024 Vital Signs Date of Collection Vitals [...] Time Current Smoking Status Former smoker 2025-04-05 7 Sex Male History of Procedures Procedures Service [...] (do not use for phone, instead use 30101-95) 26894 2022-09-03 No Data Available No Data Availa ble SBP < 130 (3074F) 3074F 2022-09-03 No Data Available No Data Available DBP 80-89 (3079F) 3079F 2022-09-03 No Data Available No Data Available New patient,40-59min; chronic exacerbation, 2 stable chronic or 1 acute illness add add modifier 95 for video (do not use for phone, instead use 91402-13) 63403 2023-05-29 No Data Available No Data Availa [...] (do not use for phone, instead use 73450-03) 67303 2024-01-07 No Data Available No Data Availa [...] 95 for video, modifier 93 for phone 56139 2024-12-21 No Data Available No Data Availa [...] joint pain increased [facility]. [facility] with [facility] [...] decision-maker. (1124F)Continue to see PCP. [facility] [...] area BID PRN neuropathic pain #50 gram [id number] Review by prescribing provider or pharmacist documented [...] ins card. 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
== END 2025-04-30 10:31 | disposition home or self-care (01) ==
LOC: HO.HMCH 09:42
PROVIDERS: PCP Internal Medicine; Visit Provider Internal Medicine
DX: E78.00 Pure hypercholesterolemia, unspecified (principal); E04.1 Nontoxic single thyroid nodule; E55.9 Vitamin D deficiency, unspecified; D64.9 Anemia, unspecified; J30.1 Allergic rhinitis due to pollen; K59.00 Constipation, unspecified; M19.012 Primary osteoarthritis, left shoulder; M47.816 Spondylosis without myelopathy or radiculopathy, lumbar region; M77.31 Calcaneal spur, right foot; H91.92 Unspecified hearing loss, left ear; G47.00 Insomnia, unspecified

== ENCOUNTER → 2025-04-30 09:41 | Outpatient (BNVA) | payer OTHER, SELFPAY | PROVIDERS: PCP Internal Medicine; Visit Provider Internal Medicine | DX: E78.00 Pure hypercholesterolemia, unspecified (principal); E04.1 Nontoxic single thyroid nodule; D64.9 Anemia, unspecified; E55.9 Vitamin D deficiency, unspecified; J30.1 Allergic rhinitis due to pollen; K59.00 Constipation, unspecified; M19.012 Primary osteoarthritis, left shoulder; M47.816 Spondylosis without myelopathy or radiculopathy, lumbar region; M77.31 Calcaneal spur, right foot; H91.92 Unspecified hearing loss, left ear; G47.00 Insomnia, unspecified | CPT/HCPCS: 96127; 99212 ==

== ENCOUNTER 2025-06-23 11:00 | Outpatient (AMB) | payer OTHER, SELFPAY ==
--- NOTE | 2025-06-23 11:03 | MHC.OFFWIV ---
Intake Vital Signs 06/23/25 11:04 Height 5 ft 6 in Weight 152 lb BMI 24.5 BP 136/68 Blood Pressure Location Lt brachial Position Sitting Pulse 55 Pulse Source Pulse Oximeter Temp 97.5 F Temp Source Oral Pulse Oximetry (%) 98 Oxygen Delivery Method Room Air Intake Visit Reasons: EP-rt foot pain and swollen Intake Note: pt presents with his lavwfr-ii-cos, c/o pain to right foot 2nd-5th toes and bottom of foot in that area x couple years after declining further injections d/t lack of efficacy Patient Tobacco Use Status: Never used Tobacco Department [employer] Natural [employer] Officer Required: Yes Department Of Natural [employer] Officer Language: [employer] Croatian Accompanied by: Other Relationship Allergies No Known Allergies Allergy (Verified 06/23/25 11:07) Do you need a note to return to daycare/school/sports/work: No HPI HPI Comments History of Present Illness Details Patient is an 84yo M who presents with daughter in law for foot/ankle pain [employer]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 When he is laying with feet up he states minimal pain Patient denies skin color changes but maybe 2/3rd toes are swelling Pt denies trauma recently to his feet or toes; used to have injections in toes every 6 months and hasnt had them in 2 years since provider passed; it was in [place]. 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 Lumbar spondylosis Surgical History Hx of colonoscopy History of biopsy Family History Other No significant family history Social History Household Members: Family Housing: House Alcohol intake: never Patient Tobacco Use Status: Never used Tobacco e-Cigarette/Vaping Use: Never Used Second Hand Smoke Exposure: No service: No Current occupational status: retired Current occupational exposures/hazards: No Cognitive needs: No Hearing needs: No Vision needs: Yes (Glasses) Review of Systems Const Denies chills, Denies fever(s) and Denies frequent falls (denies toe or foot injury) Musc Reports arthralgias, Reports joint swelling (R 2nd digit on foot), Denies numbness and Denies tingling Skin/Breast Denies new lesions, Reports skin pain, Reports skin swelling and Denies wounds Neuro Denies frequent falls (denies toe or foot injury), Denies numbness, Denies tingling and Denies paresthesias Physical Exam Exam Exam: General: Non-toxic, NAD. Speaking full sentences. Skin: Warm dry throughout Notable edema and slight disfigurement to R 2nd digit on foot at PIP and DIP joint. No foot or joint erythema, ecchymosis, wounds, plantar fascia foreign bodies, or skin breakdown. Lower extremities equal in size and shape bilaterally. Respiratory: No respiratory distress Cardiac: DP pulse intact RLE and no calf ttp or pedal/pitting edema bilaterally into shins MSK: No TTP RLE at ankle, tarsal bones or metatarsals 4/5. + ttp MTP joint 1-3 and 2/3rd digits R foot. Neurology: Alert. No aphasia or facial droop. 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 No sign of cellulitis on exam Hx of osteoartheitis R foot Pain sounds nerve related but no hx DM Discussed podiatry follow up and short course of prednisone (instructions on how to take and to avoid nsaids was given via the material handling technician) Podiatry referral PCP follow up for ? gabapentin initiation at low dose if pain is continual issue. 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
[2025-06-23 11:04] VITALS: BP 136/68; PULSE 55; TEMP 36.4; O2SAT 98; BMI 24.5
--- OUTSIDE RECORDS SUMMARY | 2025-06-23 12:23 | XMS_ITS ---
Author Name Nicholas Real NP Address [address] [place] [address] Phone [phone] Organization [facility] Care Team Providers Care Vp [employer] Partnerships Name Role Phone Richard Real Unavailable [phone] JULI LUCIA Unavailable [phone] Davidson Glaser Unavailable [phone] Reason for Referral Not Available Allergies, adverse [...] NEEDED FOR CONSTIPATION 2024-10-30 No Data Available [facility]-3 Fish Oil 1200 mg Cap 1 capsule [...] Pain Assessment - NO pain present (1126F) [facility] [place] Pain Assessment - NO pain present (1126F) [facility] [place] 09[place]2022 Pain Assessment - NO pain present (1126F) [facility] [place] 09[place]20[place] Pain Assessment - NO pain present (1126F) [facility] [place] 09[place]2022 Pain Assessment - NO pain present (1126F) [facility] [place] 09[place]2022 Pain Assessment - NO pain present (1126F) [facility] [place] 09[place]2022 Pain Assessment - NO pain present (1126F) [facility] [place] 09[place]2022 Hyperlipidemia, unspecifiedAge-related osteoporosis without current pathological fractureAllergic rhinitis, unspecifiedInsomnia, unspecifiedDermatitis, unspecifiedOther constipation Pain Assessment - NO pain present (1126F) [facility] [place] 09/03/2022 Pain Assessment - NO pain present (1126F) [facility] [place] 09/[place]/2022 New patient,40-59min; chronic exacerbation, 2 stable chronic or 1 acute illness add add modifier 95 for video (do not use for phone, instead use 53149-38) [facility] [place] 05/29/2023 Hyperlipidemia, unspecifiedAge-related osteoporosis without current pathological fractureAllergic rhinitis, unspecifiedInsomnia, unspecifiedDermatitis, unspecifiedOther constipationOther specified disorders of thyroidVaricose veins of unsp lower extremities w oth complications New patient,40-59min; chronic exacerbation, 2 stable chronic or 1 acute illness add add modifier 95 for video (do not use for phone, instead use 91077-07) [facility] [place] 05/29/2023 New patient,40-59min; chronic exacerbation, 2 stable chronic or 1 acute illness add add modifier 95 for video (do not use for phone, instead use 45459-53) [facility] [place] 05/29/2023 New patient,40-59min; chronic exacerbation, 2 stable chronic or 1 acute illness add add modifier 95 for video (do not use for phone, instead use 96493-40) [facility] [place] 05/29/2023 New patient,40-59min; chronic exacerbation, 2 stable chronic or 1 acute illness add add modifier 95 for video (do not use for phone, instead use 34271-90) [facility] [place] 05/29/2023 New patient,40-59min; chronic exacerbation, 2 stable chronic or 1 acute illness add add modifier 95 for video (do not use for phone, instead use 92718-30) [facility] [place] 05/29/2023 Estab. patient 30-39min; chronic exacerbation, 2 stable chronic or 1 acute illness add add modifier 95 for video, (do not use for phone, instead use 70415-75) [facility] 01/07/2024 Other problems related to medical [...] (do not use for phone, instead use 97091-59) [facility] Estab. patient 30-39min; chronic exacerbation, 2 stable chronic or 1 acute illness add add modifier 95 for video, (do not use for phone, instead use 21257-86) [facility] [place] 01/07/20[place] Estab. patient 30-39min; chronic exacerbation, 2 stable chronic or 1 acute illness add add modifier 95 for video, (do not use for phone, instead use 70070-25) [facility] [place] 01[place] Estab. patient 30-39min; chronic exacerbation, 2 stable chronic or 1 acute illness add add modifier 95 for video, (do not use for phone, instead use 90219-50) [facility] [place] 01/07/2024 Estab. patient 30-39min; chronic exacerbation, 2 stable chronic or 1 acute illness add add modifier 95 for video, (do not use for phone, instead use 30738-67) [facility] [place] 01/07/2024 Estab. patient 30-39min; chronic exacerbation, 2 stable chronic or 1 acute illness add add modifier 95 for video, (do not use for phone, instead use 85176-96) [facility] [place] 01/07/2024 Estab. patient 30-39min; chronic exacerbation, 2 stable chronic or 1 acute illness add add modifier 95 for video, (do not use for phone, instead use 20370-74) [facility] [place] 01/07/2024 Estab. patient 30-39min; chronic exacerbation, 2 stable chronic or 1 acute illness add add modifier 95 for video, (do not use for phone, instead use 57625-83) [facility] [place] 01[place]/20[place] Estab. patient 30-39min; chronic exacerbation, 2 stable chronic or 1 acute illness add add modifier 95 for video, (do not use for phone, instead use 72594-36) [facility] [place] 01[place]07/20[place] Estab. patient 30-39min; chronic exacerbation, 2 stable chronic or 1 acute illness add add modifier 95 for video, (do not use for phone, instead use 15838-29) [facility] [place] 01/07/20[place] Estab. patient 20-29min; 1 stable chronic or 2 minor; add add modifier 95 for video, modifier 93 for phone [facility] [place] 12/21/2024 Other specified disorders of thyroidHyperlipidemia, [...] modifier 95 for video, modifier 93 for [facility] [place] 12/21/20[place] Estab. patient 20-29min; 1 stable chronic or 2 minor; add add modifier 95 for video, modifier 93 for [facility] [place] 12/21/2024 Estab. patient 20-29min; 1 stable chronic or 2 minor; add add modifier 95 for video, modifier 93 for [facility] [place] 12/21/2024 Estab. patient 20-29min; 1 stable chronic or 2 minor; add add modifier 95 for video, modifier 93 for [facility] [place] 12/21/2024 Estab. patient 20-29min; 1 stable chronic or 2 minor; add add modifier 95 for video, modifier 93 for [facility] [place] 12/21/2024 Estab. patient 20-29min; 1 stable chronic or 2 minor; add add modifier 95 for video, modifier 93 for [facility] [place] 12/21/2024 Vital Signs Date of Collection Vitals [...] tive Time Current Smoking Status Former smoker 2025-06-05 0 Sex Male History of Procedures Procedures Service [...] (do not use for phone, instead use 65116-01) 34079 2022-09-03 No Data Available No Data Availa ble SBP < 130 (3074F) 3074F 2022-09-03 No Data Available No Data Available DBP 80-89 (3079F) 3079F 2022-09-03 No Data Available No Data Available New patient,40-59min; chronic exacerbation, 2 stable chronic or 1 acute illness add add modifier 95 for video (do not use for phone, instead use 92419-93) 89554 2023-05-29 No Data Available No Data Availa [...] (do not use for phone, instead use 95888-75) 28114 2024-01-07 No Data Available No Data Availa [...] 95 for video, modifier 93 for phone 15490 2024-12-21 No Data Available No Data Availa [...] joint pain increased [facility]. [facility]up with [facility] [...] decision-maker. (1124F)Continue to see PCP. [facility] [...] area BID PRN neuropathic pain #50 gram [id number] Review by prescribing provider or pharmacist documented [...] ins card. 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
--- OUTSIDE RECORDS SUMMARY | 2025-06-23 12:23 | XMS_ITS | Patient Health Record ---
Author Organization [facility] [place] Address [address] [place] [address] Care Team Providers Care Churn Driller Helper Name Role Phone Alfredito BARBER, [place] Primary Care Provider Torrey Snow Unavailable [phone] Allergies No Known Allergies Reason For Referral [...] Osteoarthritis of midtarsal joint of right foot (5795153014425551 ) 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 Vital Signs Height 5ft 7in in 08/31/2024 Weight 150 lbs 08/31/2024 BMI 23.49 kg/m2 08/31/2024 Encounters Encounter Location Date Provider Diagnosis [facility] [address] [address] 08/31/2024 Torrey Jennifer Pain in right foot [...] Insured Coverage Start Date Coverage End Date [facility] [id number] [address] [address] [place] [address] [id number] Milagro Zarate Self - patient is the insured Medical (General) History Medical History History ICD Code CAD (Cholesterol) thyroid Insomnia Allergic rhinitis Vitamin D deficiency Hearing loss Constipation Hypercholesterolemia Osteoarthritis Lumbar spondylosis thrombophlebitis Surgical History Surgery Date(Month/Year) colonoscopy biopsy
== END 2025-06-23 12:35 | disposition home or self-care (01) ==
PROVIDERS: PCP Internal Medicine; Visit Provider Physician Assistant
DX: M19.071 Primary osteoarthritis, right ankle and foot (principal)

== ENCOUNTER → 2025-06-23 11:00 | Outpatient (BNVA) | payer OTHER, SELFPAY | PROVIDERS: PCP Internal Medicine; Visit Provider Physician Assistant | DX: M19.071 Primary osteoarthritis, right ankle and foot (principal) | CPT/HCPCS: 99212 ==

== ENCOUNTER 2025-07-23 10:37 | Outpatient (REF) | payer OTHER, SELFPAY ==
[2025-07-23 13:28] LABS: Appearance Urine Clear; Glucose Urine UA Negative (Negative); PH 6.0 (5.0-9.0); Specific Gravity - Urine 1.015 (1.005-1.025)
[2025-07-23 13:39] LABS: MANUAL DIFF FLAG NO
[2025-07-23 13:41] LABS: Hematocrit 40.5 % (42.0-52.0); Hemoglobin 13.5 g/dl (14.0-18.0); Imm Gran Abs Auto 0.01 X10*3/uL (0.00-0.03); Imm Gran Pct Auto 0.2 % (0.0-0.4); Lymphocytes Absolute Auto 1.2 X10*3/uL (1.2-4.9); Mean Corpuscular HGB Conc 33.3 g/dl (31.0-36.0); Mean Corpuscular Hemoglobin 31.0 pg (27.0-33.0); Mean Corpuscular Volume 92.9 fL (80.0-98.0); NRBC Abs Auto 0.000 X10*3/uL (0.0-0.012); NRBC Pct Auto 0.0 /100WBC (0.0-0.2); Platelet Count 128 X10*3/uL (160-400); Red Blood Count 4.36 X10*6/uL (4.60-5.80); White Blood Count 5.0 X10*3/uL (4.8-10.8)
[2025-07-23 14:02] LABS: Alanine Aminotransferase 15 U/L (0-40); Albumin Level 3.9 g/dL (3.5-5.0); Alkaline Phosphatase 60 U/L (39-117); Anion Gap 8 (12-20); Aspartate Amino Transferase 28 U/L (5-37); Blood Urea Nitrogen 14 mg/dL (9-16); Calcium 9.4 mg/dL (8.4-10.2); Carbon Dioxide 28 mmol/L (22-29); Chloride 110 mmol/L (96-108); Cholesterol 214 mg/dL (<200); Estimated Glomerular Filt Rate 56; HDL Cholesterol 55 mg/dL (>40); Potassium 4.3 mmol/L (3.3-5.1); Sodium 142 mmol/L (135-145); Total Protein 6.7 g/dL (6.5-8.0); Triglycerides 92 mg/dL (<150)
[2025-07-23 14:24] LABS: Folate 13.2 ng/mL (> or = 4.0); Vitamin B12 445 pg/mL (200-900)
== END 2025-07-23 10:38 | disposition home or self-care (01) ==
LOC: HO.HMGCLDS 10:37
PROVIDERS: PCP Internal Medicine; Visit Provider Internal Medicine
DX: E53.8 Deficiency of other specified B group vitamins (principal); R30.0 Dysuria; E78.00 Pure hypercholesterolemia, unspecified; D64.9 Anemia, unspecified
CPT/HCPCS: 36415; 80053; 80061; 81003; 82607; 82746; 85025

== ENCOUNTER 2025-07-26 14:51 | Outpatient (AMB) | payer OTHER, SELFPAY ==
--- NOTE | 2025-07-26 15:04 | MHC.PC.OV ---
Vital Signs 07/26/25 15:09 Height 5 ft 6 in Weight 150 lb 8 oz BMI 24.3 BP 120/68 Blood Pressure Location Lt brachial Position Sitting Pulse 62 Pulse Source Pulse Oximeter Temp 97.3 F Temp Source Temporal Artery Scan Pulse Oximetry (%) 97 Oxygen Delivery Method Room Air Intake Visit Reasons: annual exam - see comments Intake Note: Patient is here today for a physical. Tier Lift Truck Operator Required: Yes Tier Lift Truck Operator Language: Cantonese Polish Tier Lift Truck Operator Name: Afua (starla [place]) Information Interpreted: non-clinical & clinical (pt decline apparel fashion designer service prefer daughter padmini to translate) Cork Insulator: Present Accompanied by: [id number] Allergies No Known Allergies Allergy (Verified 08/23/25 14:32) Medication List - Last Reconciled 07/26/25 by Davidson Glaser MD atorvastatin 10 mg PO BEDTIME 90 days [BATH BENCH WITH BACK As directed] [BATHTUB STEEL WHITE BAR As directed] betamethasone valerate 0.1% 1 appl topical DAILY PRN cetirizine 10 mg PO DAILY PRN 90 days cholecalciferol (vitamin D3) 50 mcg PO DAILY 90 days [CHROME GRAB BAR As directed] clobetasol 0.05% 1 appl topical BID docusate sodium (Dulcolax Stool Softener (docusate)) Take 1 to 2 capsules orally daily PRN for constipation 90 days fluticasone propionate 50 mcg/actuation 1 spray intranasal BID 30 days [FOLDING ALUMINUM ROLLATOR As directed] food supplemt, lactose-reduced (Ensure Enlive) 1 ea PO TID 30 days food supplemt, lactose-reduced (Ensure Original oral liquid) 1 ea PO TID hydrocortisone 1% 1 appl topical BID PRN 30 days ketotifen fumarate 0.025%(0.035%) 1 drp ophthalmic (eye) BID PRN lidocaine 4% 1 patch topical DAILY PRN meloxicam 7.5 mg PO DAILY PRN 30 days prednisone 40 mg (2 x 20 mg) PO DAILY [QUAD CANE As directed] [RAISED TOILET SEAT As directed] sennosides-docusate sodium 8.6-50 mg (Senokot-S) 1 tab-cap PO BID PRN 30 days [TOILET SAFETY FRAME As directed] [TRANSFER BENCH As directed] trazodone 50 mg PO BEDTIME PRN 90 days Tobacco use date assessed: 07/26/25 Fall risk assessment: No Falls in past year Last assessed Fall Risk: 07/26/25 Dental Screening Dental Screen Date: 04/30/25 [facility] annual exam - see comments HPI Details Patient comes in today for his annual physical examination States that he feels okay He denies any headaches or dizziness Denies any chest pains, no SOB No nausea/vomiting, no abdominal pain No change in bowel habits noted He denies any acute urinary symptoms He had his follow up labs done a few days ago - to discuss his results At his current age, patient no longer has to keep up with any routine cancer screenings [facility] Medical History (Updated 07/30/25 @ 09:57 by Tammy Morgan DPM) Pain in both feet Metatarsalgia of both feet Arthritis of both feet Insomnia Allergic rhinitis Vitamin D deficiency Thyroid nodule Hearing loss in left ear Constipation Thrombophlebitis Radicular pain of left lower extremity Pure hypercholesterolemia Arthritis of left hip Osteoarthritis of left knee Lumbar spondylosis Surgical History Hx of colonoscopy History of biopsy Family History Other No significant family history Social History Household Members: Family Housing: House Alcohol intake: never Patient Tobacco Use Status: Never used Tobacco e-Cigarette/Vaping Use: Never Used Second Hand Smoke Exposure: No service: No Current occupational status: retired Current occupational exposures/hazards: No Cognitive needs: No Hearing needs: No Vision needs: Yes (Glasses) Questionnaire PHQ-9 Over the last 2 weeks, how often have you been bothered by any of the following problems? 1. Little interest or pleasure in doing things: not at all 2. Feeling down, depressed, or hopeless: not at all 3. Trouble falling or staying asleep, or sleeping too much: not at all 4. Feeling tired or having little energy: several days 5. Poor appetite or overeating: not at all 6. Feeling bad about yourself - or that you are a failure or have let yourself or your family down: not at all 7. Trouble concentrating on things, such as reading the newspaper or watching television: not at all 8. Moving or speaking so slowly that other people could have noticed. Or the opposite - being so fidgety or restless that you have been moving around a lot more than usual: not at all 9. Thoughts that you would be better off or of hurting yourself in some way: not at all Total score: 1 Depression Screening Interpretation: Negative Depression Screening Done: Yes 61998 - PHQ-9 Billing: Yes Source: Developed by Drs. Seth Yu, Merary Reaves, Jn Vogel and colleagues, with an educational joe from [employer]. Thrive Questionnaire Date Thrive assessed: 07/26/25 I am a: Patient What is your living situation today?: I have a steady place to live Within the past 12 months, did the food you bought not last and you didn't have the money to get more?: Never true Within the past 12 months, did you worry whether your food would run out before you got money to buy more?: Never true Do you have trouble paying for medicines?: No Do you have trouble getting transportation to medical appointments?: No Do you have trouble paying your heating and electricity bill?: No Do you have trouble taking care of your child, family member or friend?: No Do you have trouble with day-to-day activities such as bathing, preparing meals, shopping, managing finances, etc.?: Yes Are you currently unemployed and looking for a job?: No Are you interested in more education?: No Please select the resources that you would like help with: None Currently or been in a relationship where the following occur: No concerns reported THRIVE Score: 0 AUDIT C Alcohol Use Questionnaire (AUDIT-C) 1. How often do you have a drink containing alcohol?: Never 3. How often do you have six or more drinks on one occasion?: Never Total Score: 0 Score Reviewed/Action Taken: Yes SANTI-7 AMB Questionnaire SANTI-7 Date SANTI - 7 assessed: 04/30/25 Source: Developed by Drs. Seth Yu, Merary Reaves, Jn Vogel and colleagues, with an educational joe from [employer]. Review of Systems Const Denies chills, Denies fatigue, Denies fever(s) and Denies headache(s) Eyes Denies blurry vision, Denies change in vision, Denies irritation and Denies itchy eyes ENT Denies dysphagia, Denies dizziness, Denies otalgia, Denies headache(s), Reports hearing loss (in both ears, per daughter), Denies neck pain, Denies odynophagia and Denies sore throat Card Denies chest pain, Denies irregular heart rhythm, Denies palpitations and Denies dyspnea Resp Denies chest congestion, Denies cough, Denies dyspnea and Denies wheezing GI Denies abdominal pain, Reports constipation (on and off), Denies dysphagia, Denies heartburn, Denies diarrhea, Denies nausea, Denies odynophagia and Denies vomiting Denies difficulty urinating, Denies dysuria, Denies nocturia and Denies urinary frequency Musc Details: (+) recurrent mild right heel pain Reports back pain (over the lower back, on and off), Reports arthralgias (in hands/fingers and feet/toes, on and off) and Denies neck pain Skin/Breast Denies rash Neuro Denies dizziness, Denies headache(s) and Denies paresthesias Endo Denies fatigue and Denies palpitations Aller/Immun Denies itchy eyes and Denies wheezing Physical exam (Primary Care) Vital Signs: Last Vital Signs Temp 97.3 F 07/26/25 15:09 Pulse 62 07/26/25 15:09 BP 120/68 07/26/25 15:09 Pulse Ox 97 07/26/25 15:09 Oxygen Delivery Method Room Air 07/26/25 15:09 BMI result Body Mass Index 24.3 Tobacco/Smoking Status: Tobacco use Status Tobacco use date assessed 07/26/25 07/26/25 15:17 Patient Tobacco Use Status Never used Tobacco 07/26/25 15:05 e-Cigarette/Vaping Use Never Used 07/26/25 15:05 Depression Screening Interpretation: Negative Thrive Assessment: Date of Thrive Assessment Date Thrive assessed 04/23/25 07/26/25 15:05 Currently or been in a relationship where the following occur: No concerns reported Const General: no acute distress and alert Orientation/consciousness: patient oriented x3 HENMT Head: Yes normocephalic and Yes atraumatic Ears: TM's normal bilaterally and EAC's normal General nose exam: No nasal discharge present Face and sinus: Yes normal facial exam and Yes sinuses nontender Teeth and gingiva: dentition normal Throat: Yes posterior oropharynx normal and Yes tonsils normal (no TP congestion) Eyes Eyelids: Yes eyelids normal Conjunctivae: conjunctivae normal Pupils: Equal, round and reactive pupils present EOM: EOMs intact bilaterally Neck Neck: Yes supple and No lymphadenopathy Thyroid: Thyroid normal Resp Auscultation: clear to auscultation bilaterally, no rales and no wheezes Cardio Rate: regular rate Rhythm: regular rhythm Heart sounds: no murmurs GI Palpation (GI): Soft to palpation and nontender Auscultation: normal bowel sounds General: Yes no CVA tenderness Back/Spine/Pelvis Back: no CVA tenderness Thoracic/Lumbar Spine: lumbar spinal tenderness (mild) Skin Lesions: no lesions Rashes: no rashes Neuro General: patient oriented x3, moves all extremities, no focal motor deficits and CN's II-XI intact bilaterally Cranial nerves: Yes Equal, round and reactive pupils present Cognition (Neuro): normal cognition Gait exam (Neuro): Normal gait present Extrem General: Yes no clubbing, cyanosis or edema Right lower extremity: foot Details: tenderness Location: of the calcaneus Results Reviewed Results Reviewed: Laboratory Tests 07/23/25 07/23/25 10:43 10:50 WBC 5.0 Hgb 13.5 L Hct 40.5 L Plt Count 128 L Sodium 142 Potassium 4.3 Creatinine 1.23 Estimated GFR 56 Fasting Glucose 94 Calcium 9.4 AST 28 ALT 15 Triglycerides 92 Cholesterol 214 H LDL Cholesterol, Calc 141 H HDL Cholesterol 55 Vitamin B12 445 Folate 13.2 Ur Specific Joffre 1.015 Urine Protein Negative Urine Glucose (UA) Negative Urine Blood Negative Urine Nitrite Negative Ur Leukocyte Esterase Negative Coding Level of Care Code Est Pt Prev Care >65y(79709) Diagnoses Annual physical exam Z00.00 Pure hypercholesterolemia E78.00 Thyroid nodule E04.1 Vitamin D deficiency E55.9 Mild anemia D64.9 Seasonal allergic rhinitis due to pollen J30.1 Allergic rhinitis trigger: pollen Allergic rhinitis seasonality: seasonal Constipation, unspecified constipation type K59.00 Constipation type: unspecified constipation type Primary osteoarthritis, left shoulder M19.012 Lumbar spondylosis M47.816 Calcaneal spur of right foot M77.31 Chronic toe pain, right foot M79.674; G89.29 Hearing loss of left ear, unspecified hearing loss type H91.92 Hearing loss type: unspecified Insomnia, unspecified type G47.00 Insomnia type: unspecified Additional Codes PHQ-9 - 81258 - PHQ-9 Billing: Yes ([id number]) Assessment & Plan Assessment & Plan (1) Annual physical exam: Code(s): Z00.00 - Encounter for general adult medical examination without abnormal findings Category: Medical Plan: Results of his labs done a few days ago reviewed and discussed with patient and his family At his current age, patient no longer has to keep up with any routine cancer screenings (2) Pure hypercholesterolemia: Code(s): E78.00 - Pure hypercholesterolemia, unspecified Category: Medical Plan: Advised patient and his daughter that patient's cholesterol levels have increased significantly on his recent labs and his LDL cholesterol is now again at 141 mg/dL Patient states that he ran out of his cholesterol medication a couple of months ago and for unclear reasons, was not able to get it refilled even though his family tried to reach out to the office for his prescription refill Reinforced low cholesterol diet Will start patient back on Atorvastatin 10 mg QD - new Rx refill sent to his pharmacy Will have him recheck his labs and fasting lipids in 6 months for follow up (3) Thyroid nodule: Code(s): E04.1 - Nontoxic single thyroid nodule Category: Medical Plan: This was initially diagnosed in 2020 S/P FNA Bx in 12/2021 - pathology came out benign Repeat thyroid US done last year showed (+) significant decrease in the size of the previous left thyroid cyst - he has been advised that he may need to consider either ablation or resection if thyroid nodule recurs He had repeat FNA done back in March 2023 - aspirate was non-diagnostic on pathology as patient was reportedly unable to tolerate multiple passes during the biopsy process Patient was advised option of repeat FNA but he declined as he felt that the procedure was too painful to undergo again He did agree to a repeat thyroid US in 6 months for follow up and will think about repeat FNA only if repeat imaging shows any concerning changes in his thyroid Repeat thyroid US done in September 2023 revealed (+) 1.6 cm mid left thyroid lobe with increased vascularity - recommended FNA Bx but patient remains adamant that he does not want another Bx He was seen by Dr. Vazquez on 11/28/2023 for endocrinology follow up and as patient is not interested in any further intervention, was returned to the care of his PCP He was advised that we can refer him back for any changes in his condition or situation and we can just continue surveillance with yearly thyroid ultrasound for now Repeat thyroid US in November 2024 revealed (+) slightly smaller TI-RADS Category 5 nodule measuring 1.4 cm in the left lower pole. Given stability over time this is consistent with a benign entity although further follow-up could be considered as felt warranted. There are several benign colloid cysts that are mostly unchanged from before and the remainder of the thyroid gland is normal (4) Vitamin D deficiency: Code(s): E55.9 - Vitamin D deficiency, unspecified Category: Medical Plan: Continue Vitamin D3 2000 units QD (5) Mild anemia: Code(s): D64.9 - Anemia, unspecified Category: Medical Plan: This was previously corrected but he is again slightly anemic on his recent labs, with H/H at 13.5/40.5% Iron function tests and B12 level done with his previous labs all came back normal Will continue to monitor his CBC regularly (6) Allergic rhinitis: Code(s): J30.9 - Allergic rhinitis, unspecified Category: Medical Qualifiers: Allergic rhinitis trigger: pollen Allergic rhinitis seasonality: seasonal Qualified Code(s): J30.1 - Allergic rhinitis due to pollen Plan: Continue Fluticasone 50 mcg nasal spray BID PRN and Cetirizine 10 mg QD PRN (7) Constipation: Code(s): K59.00 - Constipation, unspecified Category: Medical Qualifiers: Constipation type: unspecified constipation type Qualified Code(s): K59.00 - Constipation, unspecified Plan: Patient is encouraged again on increased oral fluids and dietary fiber Continue Docusate 100 mg 1 to 2 capsules QD PRN; will start him additionally on Senokot 8.6-50 mg BID PRN (8) Primary osteoarthritis, left shoulder: Code(s): M19.012 - Primary osteoarthritis, left shoulder Category: Medical Plan: Left shoulder x-rays done in July 2022 revealed (+) mild to moderate glenohumeral osteoarthritis Patient reports (+) symptomatic improvement with cortisone injection from orthopedics Follow up with orthopedics as scheduled or as needed (9) Lumbar spondylosis: Code(s): M47.816 - Spondylosis without myelopathy or radiculopathy, lumbar region Category: Medical Plan: Reinforced activity and weight lifting restrictions to avoid aggravating his low back pain (10) Calcaneal spur of right foot: Code(s): M77.31 - Calcaneal spur, right foot Category: Medical Plan: Follow up with Podiatry as scheduled (11) Chronic toe pain, right foot: Code(s): M79.674 - Pain in right toe(s); G89.29 - Other chronic pain Category: Medical Plan: Will refer patient again to podiatry for this issue as well (12) Hearing loss in left ear: Code(s): H91.92 - Unspecified hearing loss, left ear Category: Medical Qualifiers: Hearing loss type: unspecified Qualified Code(s): H91.92 - Unspecified hearing loss, left ear Plan: Reports that he still experiences frequent tinnitus in his left ear Have discussed with patient previously ways to help manage his tinnitus and have advised him that there is really no cure for hearing loss He has declined referral to a surgical training specialist for fitting of hearing aids as he does not like to wear them and they are not really covered by his insurance (13) Insomnia: Code(s): G47.00 - Insomnia, unspecified Category: Medical Qualifiers: Insomnia type: unspecified Qualified Code(s): G47.00 - Insomnia, unspecified Plan: Sleep hygiene reinforced Continue Trazodone 50 mg Q HS PRN Plan Follow up in 6 months Orders: Orders Complete Blood Count Auto Diff 6 Months D64.9 - Anemia, unspecified Vitamin B12 and Folate 6 Months E53.8 - Deficiency of other specified B group vitamins Vitamin D 25-OH Total 6 Months E55.9 - Vitamin D deficiency, unspecified Comprehensive Gaffney. Panel Fast 6 Months E78.00 - Pure hypercholesterolemia, unspecified Lipid Panel 6 Months E78.00 - Pure hypercholesterolemia, unspecified UA CC w/rflx Micro + Cult 6 Months R30.0 - Dysuria TSH reflex Free T4 6 Months E78.00 - Pure hypercholesterolemia, unspecified Referrals Podiatry Referral M79.674 - Pain in right toe(s), G89.29 - Other chronic pain Medications: Refilled atorvastatin 10 mg PO BEDTIME 90 tabs 3RF 90 days
[2025-07-26 15:09] VITALS: BP 120/68; PULSE 62; TEMP 36.3; O2SAT 97; BMI 24.3
== END 2025-07-26 16:08 | disposition home or self-care (01) ==
LOC: HO.HMCH 14:51
PROVIDERS: PCP Internal Medicine; Visit Provider Internal Medicine
DX: Z00.00 Encounter for general adult medical examination without abnormal findings (principal); E78.00 Pure hypercholesterolemia, unspecified; E04.1 Nontoxic single thyroid nodule; E55.9 Vitamin D deficiency, unspecified; D64.9 Anemia, unspecified; J30.1 Allergic rhinitis due to pollen; K59.00 Constipation, unspecified; M19.012 Primary osteoarthritis, left shoulder; M47.816 Spondylosis without myelopathy or radiculopathy, lumbar region; M77.31 Calcaneal spur, right foot; M79.674 Pain in right toe(s); G89.29 Other chronic pain; H91.92 Unspecified hearing loss, left ear; G47.00 Insomnia, unspecified

== ENCOUNTER → 2025-07-26 14:51 | Outpatient (BNVA) | payer OTHER, SELFPAY | PROVIDERS: PCP Internal Medicine; Visit Provider Internal Medicine | DX: Z00.00 Encounter for general adult medical examination without abnormal findings (principal); E78.00 Pure hypercholesterolemia, unspecified; E04.1 Nontoxic single thyroid nodule; E55.9 Vitamin D deficiency, unspecified; D64.9 Anemia, unspecified; J30.1 Allergic rhinitis due to pollen; K59.00 Constipation, unspecified; M19.012 Primary osteoarthritis, left shoulder; M47.816 Spondylosis without myelopathy or radiculopathy, lumbar region; M77.31 Calcaneal spur, right foot; M79.674 Pain in right toe(s); G89.29 Other chronic pain; H91.92 Unspecified hearing loss, left ear; G47.00 Insomnia, unspecified | CPT/HCPCS: 96127; 99397 ==

== ENCOUNTER 2025-07-30 09:21 | Outpatient (AMB) | payer OTHER, SELFPAY ==
--- NOTE | 2025-07-30 09:38 | A.OFFVIS_ITS ---
Vital Signs 07/30/25 09:39 Height 5 ft 7 in Weight 155 lb BMI 24.3 Intake Visit Reasons: Right Toe Pain Intake Note: Milagro is a 84 year old male who presents today as a new patient for an evaluation of his right foot pain. Pt states pain has been going on for 6 years and is located from his 2nd-5th toe and the plantar aspect of the foot. He has an X ray from 04/10/24 in his chart. Patient has had previous foot injection but found after some time the injections has stopped working and a previous provider recommended fish oil. Marketing Communications Manager Required: Yes Marketing Communications Manager Services: Marketing Communications Manager Present Marketing Communications Manager Name: [id number] Allergies No Known Allergies Allergy (Verified 07/26/25 15:53) Medication List - Last Reconciled 07/30/25 by Tammy Morgan DPM atorvastatin 10 mg PO BEDTIME 90 days [BATH BENCH WITH BACK As directed] [BATHTUB STEEL WHITE BAR As directed] betamethasone valerate 0.1% 1 appl topical DAILY PRN cetirizine 10 mg PO DAILY PRN 90 days cholecalciferol (vitamin D3) 50 mcg PO DAILY 90 days [CHROME GRAB BAR As directed] clobetasol 0.05% 1 appl topical BID diclofenac sodium 1% (Voltaren Arthritis Pain) 4 grams topical QID docusate sodium (Dulcolax Stool Softener (docusate)) Take 1 to 2 capsules orally daily PRN for constipation 90 days fluticasone propionate 50 mcg/actuation 1 spray intranasal BID 30 days [FOLDING ALUMINUM ROLLATOR As directed] food supplemt, lactose-reduced (Ensure Enlive) 1 ea PO TID 30 days food supplemt, lactose-reduced (Ensure Original oral liquid) 1 ea PO TID hydrocortisone 1% 1 appl topical BID PRN 30 days ketotifen fumarate 0.025%(0.035%) 1 drp ophthalmic (eye) BID PRN lidocaine 4% 1 patch topical DAILY PRN meloxicam 7.5 mg PO DAILY PRN 30 days prednisone 40 mg (2 x 20 mg) PO DAILY [QUAD CANE As directed] [RAISED TOILET SEAT As directed] sennosides-docusate sodium 8.6-50 mg (Senokot-S) 1 tab-cap PO BID PRN 30 days [TOILET SAFETY FRAME As directed] [TRANSFER BENCH As directed] trazodone 50 mg PO BEDTIME PRN 90 days HPI Comments Details: The patient is an 84-year-old male with a past medical history as seen below presenting with bilateral foot pain foot pain, worse to the right foot. The foot pain has been ongoing for the past 6 years, with no specific injury reported as a cause. The pain is localized around the area of the metatarsal heads dorsally and plantarly. Patient previously had x-rays done in April of 2024 which showed arthritic changes. Patient states the pain is intermittent and is worsened with activity and ambulation and relief upon rest. He denies any previous treatments for this condition. He denies wearing any inserts or paddings previously. He denies any other pedal concerns. He denies any current nausea, vomiting, fever, chills. Patient was accompanied by his daughter who assisted in providing history. REPLACED BY [facility] Medical History Insomnia Allergic rhinitis Vitamin D deficiency Thyroid nodule Hearing loss in left ear Constipation Thrombophlebitis Radicular pain of left lower extremity Pure hypercholesterolemia Arthritis of left hip Osteoarthritis of left knee Lumbar spondylosis Surgical History Hx of colonoscopy History of biopsy Family History Other No significant family history Social History Household Members: Family Housing: House Alcohol intake: never Patient Tobacco Use Status: Never used Tobacco e-Cigarette/Vaping Use: Never Used Second Hand Smoke Exposure: No service: No Current occupational status: retired Current occupational exposures/hazards: No Cognitive needs: No Hearing needs: No Vision needs: Yes (Glasses) Review of Systems Const Details: - Musculoskeletal: Reports bilateral foot pain, particularly to the area of the metatarsal heads dorsally and plantarly, worse to the right. Denies any recent injury. All systems reviewed & are unremarkable except as noted in HPI and below Physical Exam Vital Signs: BMI result Body Mass Index 24.3 Extrem Other: Bilateral lower extremity focused physical exam: Derm: No open lesions abrasions or wounds noted. No ecchymosis or erythema noted. Skin supple and turgor within normal limits for age. No edema noted. No clinical signs of infection. No hyperkeratotic lesions or interdigital maceration noted. Toenails within normal limits bilaterally. Vascular: DP/PT pulses palpable. Capillary refill time less than 3 seconds. Temperature gradient warm to warm. Pedal hair diminished. Varicosities noted. Neuro: Protective sensation is grossly intact. MSK: Minimal pain on palpation to the metatarsal heads plantarly at the ball of the foot bilaterally, worse of the right. Range of motion to the forefoot within normal limits. Range of motion to the hindfoot and ankles within normal limits. No crepitus noted. MMT 5/5. No gross abnormalities noted. Negative squeeze test. Negative piano camejo test. Results Reviewed Results Reviewed: Podiatry read of Right foot x-ray (04/10/2024): Decreased joint spacing noted to MPJs, worsened to the 1st. Osteophytic changes noted diffusely to the foot. Calcaneal spurring noted. No acute fractures or dislocations noted. Right foot x-ray (04/10/2024): FINDINGS: There is no evidence of fractures or osseous destruction no significant changes of osteoarthritis. There is plantar calcaneal spurring. Soft tissues unremarkable. IMPRESSION: Plantar calcaneal spur. Assessment & Plan Assessment & Plan (1) Arthritis of both feet: Code(s): M19.071 - Primary osteoarthritis, right ankle and foot; M19.072 - Primary osteoarthritis, left ankle and foot Category: Medical (2) Metatarsalgia of both feet: Code(s): M77.41 - Metatarsalgia, right foot; M77.42 - Metatarsalgia, left foot Category: Medical (3) Pain in both feet: Code(s): M79.671 - Pain in right foot; M79.672 - Pain in left foot Category: Medical Plan Patient was informed and verbally consented to the use of an ambient scribe for clinic note documentation during this visit. I discussed with the patient the diagnosis of metatarsalgia and arthritis in the toes, explaining that the pain is due to pressure on the metatarsal heads and joint irritation from arthritis. We reviewed the use of metatarsal pads to reduce pressure and the application of a Voltaren gel for pain relief. I advised a follow-up in three weeks to evaluate the treatment's effectiveness and adjust the plan if necessary. - Prescribed Voltaren gel for arthritis pain relief, to be applied to the affected area as needed. - Recommend the use of metatarsal pads in shoes to alleviate pressure on the metatarsal heads during walking. Provided patient with metatarsal pads may aterally. - Patient is to continue to monitor his feet daily and is to avoid barefoot walking. - Patient is to wear supportive shoe gear. Patient is to follow-up in 3 weeks for re-evaluation of symptoms. Medications: New diclofenac sodium 1% (Voltaren Arthritis Pain) apply to single knee, ankle, foot; for foot includes sole/toes/top of foot 4 grams topical QID 50 grams 0RF Arthritis M19.071 - Primary osteoarthritis, right ankle and foot, M19.072 - Primary osteoarthritis, left ankle and foot, M77.41 - Metatarsalgia, right foot, M77.42 - Metatarsalgia, left foot, M79.671 - Pain in right foot, M79.672 - Pain in left foot Coding Level of Care Code New Pt Level 4 (64286) Diagnoses Arthritis of both feet M19.071; M19.072 Metatarsalgia of both feet M77.41; M77.42 Pain in both feet M79.671; M79.672 Time Spent (min) 50
[2025-07-30 09:39] VITALS: BMI 24.3
--- OUTSIDE RECORDS SUMMARY | 2025-07-30 10:09 | XMS_ITS ---
Author Name Nicholas Real NP Address [address] [place] [address] Phone [phone] Organization [facility] Care Team Providers Care Central Office Operator Name Role Phone Richard Real Unavailable [phone] JULI LUCIA Unavailable [phone] Davidson Glaser Unavailable [phone] Reason for Referral Not Available Allergies, adverse [...] NEEDED FOR CONSTIPATION 2024-10-30 No Data Available [place]-3 Fish Oil 1200 mg Cap 1 capsule [...] Pain Assessment - NO pain present (1126F) [facility] [place]20[place] Pain Assessment - NO pain present (1126F) [facility] [place] Pain Assessment - NO pain present (1126F) [facility] [place] Pain Assessment - NO pain present (1126F) [facility] [place] Pain Assessment - NO pain present (1126F) [facility] [place] Pain Assessment - NO pain present (1126F) [facility] [place] Pain Assessment - NO pain present (1126F) [facility] [place] Hyperlipidemia, unspecifiedAge-related osteoporosis without current pathological fractureAllergic rhinitis, unspecifiedInsomnia, unspecifiedDermatitis, unspecifiedOther constipation Pain Assessment - NO pain present (1126F) [facility] [place]2022 Pain Assessment - NO pain present (1126F) [facility] [place]2022 New patient,40-59min; chronic exacerbation, 2 stable chronic or 1 acute illness add add modifier 95 for video (do not use for phone, instead use 48004-59) [facility] [place] 05[place]29/2023 Hyperlipidemia, unspecifiedAge-related osteoporosis without current pathological fractureAllergic rhinitis, unspecifiedInsomnia, unspecifiedDermatitis, unspecifiedOther constipationOther specified disorders of thyroidVaricose veins of unsp lower extremities w oth complications New patient,40-59min; chronic exacerbation, 2 stable chronic or 1 acute illness add add modifier 95 for video (do not use for phone, instead use 69154-39) [facility] [place] 05[place]2023 New patient,40-59min; chronic exacerbation, 2 stable chronic or 1 acute illness add add modifier 95 for video (do not use for phone, instead use 75925-90) [facility]2023 New patient,40-59min; chronic exacerbation, 2 stable chronic or 1 acute illness add add modifier 95 for video (do not use for phone, instead use 45208-76) [facility]/2023 New patient,40-59min; chronic exacerbation, 2 stable chronic or 1 acute illness add add modifier 95 for video (do not use for phone, instead use 86062-39) [facility]2023 New patient,40-59min; chronic exacerbation, 2 stable chronic or 1 acute illness add add modifier 95 for video (do not use for phone, instead use 93987-62) [facility] 05[place]29/2023 Estab. patient 30-39min; chronic exacerbation, 2 stable chronic or 1 acute illness add add modifier 95 for video, (do not use for phone, instead use 07186-32) [facility] [place] 01[place]07/2024 Other problems related to medical [...] (do not use for phone, instead use 55949-52) [facility], ([place] 01/07/20[place] Estab. patient 30-39min; chronic exacerbation, 2 stable chronic or 1 acute illness add add modifier 95 for video, (do not use for phone, instead use 88085-39) [facility]20[place] Estab. patient 30-39min; chronic exacerbation, 2 stable chronic or 1 acute illness add add modifier 95 for video, (do not use for phone, instead use 88697-78) [facility] [place]07/[place] Estab. patient 30-39min; chronic exacerbation, 2 stable chronic or 1 acute illness add add modifier 95 for video, (do not use for phone, instead use 53529-13) [facility]07/20[place] Estab. patient 30-39min; chronic exacerbation, 2 stable chronic or 1 acute illness add add modifier 95 for video, (do not use for phone, instead use 16004-02) [facility]07/20[place] Estab. patient 30-39min; chronic exacerbation, 2 stable chronic or 1 acute illness add add modifier 95 for video, (do not use for phone, instead use 28069-60) [facility]/20[place] Estab. patient 30-39min; chronic exacerbation, 2 stable chronic or 1 acute illness add add modifier 95 for video, (do not use for phone, instead use 29709-13) [facility]/20[place] Estab. patient 30-39min; chronic exacerbation, 2 stable chronic or 1 acute illness add add modifier 95 for video, (do not use for phone, instead use 26611-29) [facility] Estab. patient 30-39min; chronic exacerbation, 2 stable chronic or 1 acute illness add add modifier 95 for video, (do not use for phone, instead use 01068-71) [facility] Estab. patient 30-39min; chronic exacerbation, 2 stable chronic or 1 acute illness add add modifier 95 for video, (do not use for phone, instead use 71530-86) [facility]/20[place] Estab. patient 20-29min; 1 stable chronic or 2 minor; add add modifier 95 for video, modifier 93 for phone [facility] 12[place]21/2024 Other specified disorders of thyroidHyperlipidemia, [...] modifier 95 for video, modifier 93 for [facility]21/20[place] Estab. patient 20-29min; 1 stable chronic or 2 minor; add add modifier 95 for video, modifier 93 for [facility] 12/21/2024 Estab. patient 20-29min; 1 stable chronic or 2 minor; add add modifier 95 for video, modifier 93 for [facility] 12/21/2024 Estab. patient 20-29min; 1 stable chronic or 2 minor; add add modifier 95 for video, modifier 93 for [facility] 12/21/2024 Estab. patient 20-29min; 1 stable chronic or 2 minor; add add modifier 95 for video, modifier 93 for [facility] 12/21/2024 Estab. patient 20-29min; 1 stable chronic or 2 minor; add add modifier 95 for video, modifier 93 for [facility] 12/21/2024 Vital Signs Date of Collection Vitals [...] tive Time Current Smoking Status Former smoker 2025-07-06 5 Sex Male History of Procedures Procedures Service [...] (do not use for phone, instead use 39720-91) 01388 2022-09-03 No Data Available No Data Availa ble SBP < 130 (3074F) 3074F 2022-09-03 No Data Available No Data Available DBP 80-89 (3079F) 3079F 2022-09-03 No Data Available No Data Available New patient,40-59min; chronic exacerbation, 2 stable chronic or 1 acute illness add add modifier 95 for video (do not use for phone, instead use 37060-36) 32108 2023-05-29 No Data Available No Data Availa [...] (do not use for phone, instead use 51351-66) 27809 2024-01-07 No Data Available No Data Availa [...] 95 for video, modifier 93 for phone 36259 2024-12-21 No Data Available No Data Availa [...] joint pain increased [facility]. [facility]up with [facility] as [...] decision-maker. (1124F)Continue to see PCP. [facility] or disease [...] area BID PRN neuropathic pain #50 gram [id number] Review by prescribing provider or pharmacist documented [...] 2023-05-29 Continue to follow w [facility] for thyroid mass 2024-01-07 Trial of lidocaine [...]
--- OUTSIDE RECORDS SUMMARY | 2025-07-30 10:10 | XMS_ITS | Patient Health Record ---
Author Organization [facility] [place] Address [address] [place] [address] Care Team Providers Care Supervisor Dumping Name Role Phone Alfredito BARBER, [place] Primary Care Provider Torrey Snow Unavailable [phone] Allergies No Known Allergies Reason For Referral [...] Osteoarthritis of midtarsal joint of right foot ([id number] ) 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 Vital Signs Height 5ft 7in in 08/31/2024 Weight 150 lbs 08/31/2024 BMI 23.49 kg/m2 08/31/2024 Encounters Encounter Location Date Provider Diagnosis [facility] [address] [address] 08/31/2024 Torrey Jennifer Pain in right foot [...] Insured Coverage Start Date Coverage End Date [facility] [id number] [address] [address] [place] [address] [id number] Milagro Zarate Self - patient is the insured Medical (General) History Medical History History ICD Code CAD (Cholesterol) thyroid Insomnia Allergic rhinitis Vitamin D deficiency Hearing loss Constipation Hypercholesterolemia Osteoarthritis Lumbar spondylosis thrombophlebitis Surgical History Surgery Date(Month/Year) colonoscopy biopsy
== END 2025-07-30 09:58 | disposition home or self-care (01) ==
LOC: HO.HPODS 09:22
PROVIDERS: PCP Internal Medicine; Visit Provider Student in an Organized Health Care Education/Training Program
DX: M19.071 Primary osteoarthritis, right ankle and foot (principal); M19.072 Primary osteoarthritis, left ankle and foot; M77.41 Metatarsalgia, right foot; M77.42 Metatarsalgia, left foot; M79.671 Pain in right foot; M79.672 Pain in left foot
CPT/HCPCS: 99204

== ENCOUNTER → 2025-07-30 09:21 | Outpatient (BNVA) | payer OTHER, SELFPAY | PROVIDERS: PCP Internal Medicine; Visit Provider Student in an Organized Health Care Education/Training Program | DX: M19.071 Primary osteoarthritis, right ankle and foot (principal); M19.072 Primary osteoarthritis, left ankle and foot; M77.41 Metatarsalgia, right foot; M77.42 Metatarsalgia, left foot; M79.671 Pain in right foot; M79.672 Pain in left foot | CPT/HCPCS: 99202 ==

== ENCOUNTER 2025-08-23 14:23 | Outpatient (AMB) | payer OTHER, SELFPAY ==
--- NOTE | 2025-08-23 14:30 | MHC.OFFVIS ---
Vital Signs 08/23/25 14:31 Height 5 ft 7 in Weight 155 lb BMI 24.3 Intake Visit Reasons: fu Right Toe Pain Intake Note: Milagro is an 84 year old male who presents to the office today for a 3 week follow up for right toe pain. At previous visit patient was prescribed Voltaren for arthritis pain relief and was provided with metatarsal pads bilaterally. Pt states he has used the metatarsal pads and found slight relief but he was has not started the medication at this time. Tobacco Flavorer Required: Yes Tobacco Flavorer Services: Tobacco Flavorer Present Tobacco Flavorer Name: [id number] Allergies No Known Allergies Allergy (Verified 08/23/25 14:32) Medication List - Last Reconciled 08/23/25 by Tammy Morgan DPM atorvastatin 10 mg PO BEDTIME 90 days [BATH BENCH WITH BACK As directed] [BATHTUB STEEL WHITE BAR As directed] betamethasone valerate 0.1% 1 appl topical DAILY PRN cetirizine 10 mg PO DAILY PRN 90 days cholecalciferol (vitamin D3) 50 mcg PO DAILY 90 days [CHROME GRAB BAR As directed] clobetasol 0.05% 1 appl topical BID diclofenac sodium 1% (Voltaren Arthritis Pain) 4 grams topical QID docusate sodium (Dulcolax Stool Softener (docusate)) Take 1 to 2 capsules orally daily PRN for constipation 90 days fluticasone propionate 50 mcg/actuation 1 spray intranasal BID 30 days [FOLDING ALUMINUM ROLLATOR As directed] food supplemt, lactose-reduced (Ensure Enlive) 1 ea PO TID 30 days food supplemt, lactose-reduced (Ensure Original oral liquid) 1 ea PO TID hydrocortisone 1% 1 appl topical BID PRN 30 days ketotifen fumarate 0.025%(0.035%) 1 drp ophthalmic (eye) BID PRN lidocaine 4% 1 patch topical DAILY PRN meloxicam 7.5 mg PO DAILY PRN 30 days [orthopedic shoes and insert Please dispense a pair of orthopedic shoes and inserts with metatarsal padding B/L.] prednisone 40 mg (2 x 20 mg) PO DAILY [QUAD CANE As directed] [RAISED TOILET SEAT As directed] sennosides-docusate sodium 8.6-50 mg (Senokot-S) 1 tab-cap PO BID PRN 30 days [TOILET SAFETY FRAME As directed] [TRANSFER BENCH As directed] trazodone 50 mg PO BEDTIME PRN 90 days HPI Comments Details: The patient is an 84-year-old male presenting for a follow up of B/L metatarsalgia, right worse than left. Patient states the pain has improved and he notices the most relief when wearing the metatarsal pads. Patient states the pain is localized to the area of the metatarsal heads (2-4) dorsally and plantarally. He states the pain is worsened with pressure or when walking. Patient states he has not been using the Voltaren gel. He denies any other pedal concerns. He denies any current nausea, vomiting, fever, chills. Patient was accompanied by his daughter who assisted in providing history. [facility], [facility] Medical History (Updated 07/30/25 @ 09:57 by Tammy Morgan DPM) Pain in both feet Metatarsalgia of both feet Arthritis of both feet Insomnia Allergic rhinitis Vitamin D deficiency Thyroid nodule Hearing loss in left ear Constipation Thrombophlebitis Radicular pain of left lower extremity Pure hypercholesterolemia Arthritis of left hip Osteoarthritis of left knee Lumbar spondylosis Surgical History Hx of colonoscopy History of biopsy Family History Other No significant family history Social History Household Members: Family Housing: House Alcohol intake: never Patient Tobacco Use Status: Never used Tobacco e-Cigarette/Vaping Use: Never Used Second Hand Smoke Exposure: No service: No Current occupational status: retired Current occupational exposures/hazards: No Cognitive needs: No Hearing needs: No Vision needs: Yes (Glasses) Review of Systems Const Details: - Musculoskeletal: Reports bilateral foot pain, particularly to the area of the metatarsal heads dorsally and plantarly, worse to the right. Denies any recent injury. All systems reviewed & are unremarkable except as noted in HPI and below Physical Exam Vital Signs: BMI result Body Mass Index 24.3 Extrem Other: Bilateral lower extremity focused physical exam: Derm: No open lesions abrasions or wounds noted. No ecchymosis or erythema noted. Skin supple and turgor within normal limits for age. No edema noted. No clinical signs of infection. No hyperkeratotic lesions or interdigital maceration noted. Toenails within normal limits bilaterally. No hyperpigmentation or discoloration noted. Vascular: DP/PT pulses palpable. Capillary refill time less than 3 seconds. Temperature gradient warm to warm. Pedal hair diminished. Mild Varicosities noted. Neuro: Protective sensation is grossly intact. MSK: Minimal pain on palpation to the metatarsal heads plantarly and dorsally at the ball of the foot bilaterally, worse of the right. Range of motion to the forefoot within normal limits. Range of motion to the hindfoot and ankles within normal limits. No crepitus noted. MMT 5/5. No gross abnormalities noted. Negative squeeze test. Negative piano camejo test. Negative carol's sign. Results Reviewed Results Reviewed: Podiatry read of Right foot x-ray (04/10/2024): Decreased joint spacing noted to MPJs, worsened to the 1st. Osteophytic changes noted diffusely to the foot. Calcaneal spurring noted. No acute fractures or dislocations noted. Right foot x-ray (04/10/2024): FINDINGS: There is no evidence of fractures or osseous destruction no significant changes of osteoarthritis. There is plantar calcaneal spurring. Soft tissues unremarkable. IMPRESSION: Plantar calcaneal spur. Assessment & Plan Assessment & Plan (1) Metatarsalgia of both feet: Code(s): M77.41 - Metatarsalgia, right foot; M77.42 - Metatarsalgia, left foot Category: Medical (2) Pain in both feet: Code(s): M79.671 - Pain in right foot; M79.672 - Pain in left foot Category: Medical (3) Right foot pain: Code(s): M79.671 - Pain in right foot Category: Medical (4) Arthritis of both feet: Code(s): M19.071 - Primary osteoarthritis, right ankle and foot; M19.072 - Primary osteoarthritis, left ankle and foot Category: Medical Plan Patient was informed and verbally consented to the use of an ambient scribe for clinic note documentation during this visit. I discussed with the patient the plan to manage the foot pain by using orthopedic shoes with built-in arch support and metatarsal pads. We reviewed the process for obtaining the shoes, including the fitting appointment and the expected benefits of improved support and reduced pain. I advised the patient to avoid walking barefoot and to use house slippers for additional support. - Prescribed orthopedic shoes with built-in arch support and metatarsal pads to alleviate foot pain. - Patient to be fitted for orthopedic shoes and inserts at a designated facility. - Recommend the use of Voltaren gel for arthritic pain relief. - Continue the use of metatarsal pads in shoes to alleviate pressure on the metatarsal heads during walking. Provided patient with metatarsal pads bilaterally. - Patient is to continue to monitor his feet daily and is to avoid barefoot walking. RTC in 6 weeks for re-evaluation. Medications: New [orthopedic shoes and insert] Please dispense a pair of orthopedic shoes and inserts with metatarsal padding B/L. 1 ea 0RF Arthritis & Metatarsalgia M19.071 - Primary osteoarthritis, right ankle and foot, M19.072 - Primary osteoarthritis, left ankle and foot, M77.41 - Metatarsalgia, right foot, M77.42 - Metatarsalgia, left foot, M79.671 - Pain in right foot, M79.672 - Pain in left foot Coding Level of Care Code Est Pt Level 4 (63003) Diagnoses Metatarsalgia of both feet M77.41; M77.42 Pain in both feet M79.671; M79.672 Right foot pain M79.671 Arthritis of both feet M19.071; M19.072 Time Spent (min) 30
[2025-08-23 14:31] VITALS: BMI 24.3
--- OUTSIDE RECORDS SUMMARY | 2025-08-23 18:09 | XMS_ITS ---
Author Name Nicholas Real NP Address [address] [place] [address] Phone [phone] Organization [facility] Care Team Providers Care Insurance Rater Name Role Phone Richard Real Unavailable [phone] JULI LUCIA Unavailable [phone] Davidson Glaser Unavailable [phone] Reason for Referral Not Available Allergies, adverse [...] NEEDED FOR CONSTIPATION 2024-10-30 No Data Available [place]-3 Fish Oil 1200 mg Cap 1 capsule [...] Pain Assessment - NO pain present (1126F) [facility] [place] Pain Assessment - NO pain present (1126F) [facility] [place] Pain Assessment - NO pain present (1126F) [facility] [place] Pain Assessment - NO pain present (1126F) [facility] [place] Pain Assessment - NO pain present (1126F) [facility] [place] Pain Assessment - NO pain present (1126F) [facility] [place] Pain Assessment - NO pain present (1126F) [facility] [place] Hyperlipidemia, unspecifiedAge-related osteoporosis without current pathological fractureAllergic rhinitis, unspecifiedInsomnia, unspecifiedDermatitis, unspecifiedOther constipation Pain Assessment - NO pain present (1126F) [facility] Pain Assessment - NO pain present (1126F) [facility] New patient,40-59min; chronic exacerbation, 2 stable chronic or 1 acute illness add add modifier 95 for video (do not use for phone, instead use 17650-99) [facility]2023 Hyperlipidemia, unspecifiedAge-related osteoporosis without current pathological fractureAllergic rhinitis, unspecifiedInsomnia, unspecifiedDermatitis, unspecifiedOther constipationOther specified disorders of thyroidVaricose veins of unsp lower extremities w oth complications New patient,40-59min; chronic exacerbation, 2 stable chronic or 1 acute illness add add modifier 95 for video (do not use for phone, instead use 98134-31) [facility] New patient,40-59min; chronic exacerbation, 2 stable chronic or 1 acute illness add add modifier 95 for video (do not use for phone, instead use 27802-73) [facility] New patient,40-59min; chronic exacerbation, 2 stable chronic or 1 acute illness add add modifier 95 for video (do not use for phone, instead use 56821-80) [facility] New patient,40-59min; chronic exacerbation, 2 stable chronic or 1 acute illness add add modifier 95 for video (do not use for phone, instead use 49159-17) [facility] New patient,40-59min; chronic exacerbation, 2 stable chronic or 1 acute illness add add modifier 95 for video (do not use for phone, instead use 47505-77) [facility] Estab. patient 30-39min; chronic exacerbation, 2 stable chronic or 1 acute illness add add modifier 95 for video, (do not use for phone, instead use 11114-70) [facility] Other problems related to medical [...] (do not use for phone, instead use 31677-59) [facility], ([place] 01/07/[place] Estab. patient 30-39min; chronic exacerbation, 2 stable chronic or 1 acute illness add add modifier 95 for video, (do not use for phone, instead use 25986-49) [facility] Estab. patient 30-39min; chronic exacerbation, 2 stable chronic or 1 acute illness add add modifier 95 for video, (do not use for phone, instead use 97275-56) [facility] [place] 01[place]07/[place] Estab. patient 30-39min; chronic exacerbation, 2 stable chronic or 1 acute illness add add modifier 95 for video, (do not use for phone, instead use 92154-69) [facility] Estab. patient 30-39min; chronic exacerbation, 2 stable chronic or 1 acute illness add add modifier 95 for video, (do not use for phone, instead use 99174-16) [facility] Estab. patient 30-39min; chronic exacerbation, 2 stable chronic or 1 acute illness add add modifier 95 for video, (do not use for phone, instead use 58927-29) [facility] Estab. patient 30-39min; chronic exacerbation, 2 stable chronic or 1 acute illness add add modifier 95 for video, (do not use for phone, instead use 29184-10) [facility] Estab. patient 30-39min; chronic exacerbation, 2 stable chronic or 1 acute illness add add modifier 95 for video, (do not use for phone, instead use 84130-39) [facility] [place] Estab. patient 30-39min; chronic exacerbation, 2 stable chronic or 1 acute illness add add modifier 95 for video, (do not use for phone, instead use 06268-74) [facility] [place] 01[place] Estab. patient 30-39min; chronic exacerbation, 2 stable chronic or 1 acute illness add add modifier 95 for video, (do not use for phone, instead use 88949-61) [facility] [place] 01[place] Estab. patient 20-29min; 1 stable chronic or 2 minor; add add modifier 95 for video, modifier 93 for phone [facility] Other specified disorders of thyroidHyperlipidemia, [...] modifier 95 for video, modifier 93 for [facility] Estab. patient 20-29min; 1 stable chronic or 2 minor; add add modifier 95 for video, modifier 93 for [facility] 12/21/20[place] Estab. patient 20-29min; 1 stable chronic or 2 minor; add add modifier 95 for video, modifier 93 for [facility] 12/21/20[place] Estab. patient 20-29min; 1 stable chronic or 2 minor; add add modifier 95 for video, modifier 93 for [facility] 12/[place]/20[place] Estab. patient 20-29min; 1 stable chronic or 2 minor; add add modifier 95 for video, modifier 93 for [facility] 12/21/[place] Estab. patient 20-29min; 1 stable chronic or 2 minor; add add modifier 95 for video, modifier 93 for [facility], ([place] 12/21/2024 Vital Signs Date of Collection Vitals [...] tive Time Current Smoking Status Former smoker 2025-08-05 0 Sex Male History of Procedures Procedures [...] (do not use for phone, instead use 89681-34) 32978 2022-09-03 No Data Available No Data Availa ble SBP < 130 (3074F) 3074F 2022-09-03 No Data Available No Data Available DBP 80-89 (3079F) 3079F 2022-09-03 No Data Available No Data Available New patient,40-59min; chronic exacerbation, 2 stable chronic or 1 acute illness add add modifier 95 for video (do not use for phone, instead use 72886-05) 10943 2023-05-29 No Data Available No Data Availa [...] (do not use for phone, instead use 23226-10) 49614 2024-01-07 No Data Available No Data Availa [...] 95 for video, modifier 93 for phone 55534 2024-12-21 No Data Available No Data Availa [...] joint pain increased [facility]. [facility] with [facility] as [...] decision-maker. (1124F)Continue to see PCP. [facility] or disease [...] area BID PRN neuropathic pain #50 gram [id number] Review by prescribing provider or pharmacist documented [...] ins card. 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
--- OUTSIDE RECORDS SUMMARY | 2025-08-23 18:10 | XMS_ITS | Patient Health Record ---
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 Vital Signs Height 5ft 7in in 08/31/2024 Weight 150 lbs 08/31/2024 BMI 23.49 kg/m2 08/31/2024 Encounters Encounter Location Date Provider Diagnosis [facility] [address] [address] 08/31/2024 Torrey Jennifer Pain in right foot [...] Insured Coverage Start Date Coverage End Date [facility] [id number] [address] [address] [place] [address] [id number] Milagro Zarate Self - patient is the insured Medical (General) History Medical History History ICD Code CAD (Cholesterol) thyroid Insomnia Allergic rhinitis Vitamin D deficiency Hearing loss Constipation Hypercholesterolemia Osteoarthritis Lumbar spondylosis thrombophlebitis Surgical History Surgery Date(Month/Year) colonoscopy biopsy
== END 2025-08-23 14:48 | disposition home or self-care (01) ==
LOC: HO.HPODS 14:24
PROVIDERS: PCP Internal Medicine; Visit Provider Student in an Organized Health Care Education/Training Program
DX: M77.41 Metatarsalgia, right foot (principal); M77.42 Metatarsalgia, left foot; M79.671 Pain in right foot; M79.672 Pain in left foot; M19.071 Primary osteoarthritis, right ankle and foot; M19.072 Primary osteoarthritis, left ankle and foot
CPT/HCPCS: 99214

== ENCOUNTER → 2025-08-23 14:23 | Outpatient (BNVA) | payer OTHER, SELFPAY | PROVIDERS: PCP Internal Medicine; Visit Provider Student in an Organized Health Care Education/Training Program | DX: M79.671 Pain in right foot (principal); M79.672 Pain in left foot; M77.41 Metatarsalgia, right foot; M77.42 Metatarsalgia, left foot; M19.071 Primary osteoarthritis, right ankle and foot; M19.072 Primary osteoarthritis, left ankle and foot | CPT/HCPCS: 99212 ==

== ENCOUNTER 2025-10-04 08:29 | Outpatient (AMB) | payer OTHER, SELFPAY ==
[2025-10-04 08:37] VITALS: BMI 24.3
--- NOTE | 2025-10-04 08:37 | A.OFFVIS_ITS ---
Vital Signs 10/04/25 08:37 Height 5 ft 7 in Weight 155 lb BMI 24.3 Intake Visit Reasons: f/u orthopedic shoes & metatarsalgia Intake Note: Milagro is a 84 year old male here for a follow up for orthopedic shoes & metatarsalgia. At last appointment patient was prescribed orthopedic shoes with built-in arch support and metatarsal pads to alleviate foot pain. Provider rec ommend the use of Voltaren gel for arthritic pain relief, and the continued use of metatarsal pads in shoes to alleviate pressure on the metatarsal heads during walking. Provided patient with metatarsal pads bilaterally. Patient reports he was unable to receive the orthopedic shoes due to insurance not covering prescription. He has found slight relief with the voltaren gel. Flatbed Owner Operator Required: Yes Flatbed Owner Operator Services: Flatbed Owner Operator Present Flatbed Owner Operator Name: [id number] Allergies No Known Allergies Allergy (Verified 10/04/25 08:38) HPI Comments Details: The patient is an 84-year-old male presenting for a follow up of B/L metatarsalgia, right worse than left. The patient has been using metatarsal pads for cushioning.The patient states he experiences pain in the area of the 2nd through 4th metatarsal heads. The patient has a history of hammertoes and previously received injections, which were disliked due to pain, and the patient now refuses further injections. Additionally, the patient reports chronic intermittent numbness in the toes. He denies any other pedal concerns He denies any current nausea, vomiting, fever, chills. Patient was accompanied by his daughter who assisted in providing history. Patient was unable to obtain orthopedic shoes and inserts. 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 Lumbar spondylosis Surgical History Hx of colonoscopy History of biopsy Family History Other No significant family history Social History (Reviewed 07/26/25 @ 15:08 by GIULIANA Bhatti Household Members: Family Housing: House Alcohol intake: never Patient Tobacco Use Status: Never used Tobacco e-Cigarette/Vaping Use: Never Used Second Hand Smoke Exposure: No service: No Current occupational status: retired Current occupational exposures/hazards: No Cognitive needs: No Hearing needs: No Vision needs: Yes (Glasses) Review of Systems Const Details: - Musculoskeletal: Reports bilateral foot pain, particularly to the area of the metatarsal heads dorsally and plantarly, worse to the right. Denies any recent injury. All systems reviewed & are unremarkable except as noted in HPI and below Physical Exam Vital Signs: BMI result Body Mass Index 24.3 Extrem Other: Bilateral lower extremity focused physical exam: Derm: No open lesions abrasions or wounds noted. No ecchymosis or erythema noted. Skin supple and turgor within normal limits for age. No edema noted. No clinical signs of infection. No hyperkeratotic lesions or interdigital maceration noted. Toenails within normal limits bilaterally. No hyperpigmentation or discoloration noted. Vascular: DP/PT pulses palpable. Capillary refill time less than 3 seconds. Temperature gradient warm to warm. Pedal hair diminished. Mild Varicosities noted. Neuro: Protective sensation is grossly intact, but patient states he has been experiencing intermittent numbness and tingling. MSK: Mild pain on palpation to the metatarsal heads plantarly and dorsally at the ball of the foot bilaterally, worse of the right. Range of motion to the forefoot within normal limits. Range of motion to the hindfoot and ankles within normal limits. No crepitus noted. MMT 5/5. Right 2nd mild hammertoe noted. No gross abnormalities noted. Negative squeeze test. Negative piano camejo test. Negative carol's sign. Results Reviewed Results Reviewed: Podiatry read of Right foot x-ray (04/10/2024): Decreased joint spacing noted to MPJs, worsened to the 1st. Osteophytic changes noted diffusely to the foot. Calcaneal spurring noted. No acute fractures or dislocations noted. Right foot x-ray (04/10/2024): FINDINGS: There is no evidence of fractures or osseous destruction no significant changes of osteoarthritis. There is plantar calcaneal spurring. Soft tissues unremarkable. IMPRESSION: Plantar calcaneal spur. Assessment & Plan Assessment & Plan (1) Metatarsalgia of both feet: Code(s): M77.41 - Metatarsalgia, right foot; M77.42 - Metatarsalgia, left foot Category: Medical (2) Pain in both feet: Code(s): M79.671 - Pain in right foot; M79.672 - Pain in left foot Category: Medical (3) Right foot pain: Code(s): M79.671 - Pain in right foot Category: Medical (4) Arthritis of both feet: Code(s): M19.071 - Primary osteoarthritis, right ankle and foot; M19.072 - Primary osteoarthritis, left ankle and foot Category: Medical Plan Patient was informed and verbally consented to the use of an ambient scribe for clinic note documentation during this visit. I recommended continuing conservative management, including the consistent use of metatarsal pads for cushioning and a prescription refill for Voltaren gel. I noted the finding of a rigid hammertoe on the second digit, which contributes to the patient's symptoms. We discussed treatment escalation options if pain and stiffness persist, including a corticosteroid injection, but acknowledged the patient's refusal due to a previous negative experience with a painful injection. As an alternative, we agreed that physical therapy would be the next step if symptoms do not improve. I also explained that the numbness in the toes is a chronic condition that is unlikely to resolve but can be prevented from progressing up the leg. I advised the patient to continue with at-home exercises and to follow up in 2 months for re-evaluation. - Refilled Voltaren gel for pain management. - The patient will be provided with and should continue to use metatarsal pads in the shoes for cushioning. - The patient is encouraged to continue at-home exercises. - Consider purchasing [id number] inserts to be used with the metatarsal pads. - An injection was discussed but deferred as the patient declined due to a prior painful experience. - If foot stiffness and pain persist, physical therapy will be considered as the next step. - Patient is to continue to monitor his feet daily and is to avoid barefoot walking. RTC in 2 months for re-evaluation. Medications: Refilled diclofenac sodium 1% (Voltaren Arthritis Pain) apply to single knee, ankle, foot; for foot includes sole/toes/top of foot 4 grams topical QID 50 grams 0RF Arthritis M19.071 - Primary osteoarthritis, right ankle and foot, M19.072 - Primary osteoarthritis, left ankle and foot, M77.41 - Metatarsalgia, right foot, M77.42 - Metatarsalgia, left foot, M79.671 - Pain in right foot, M79.672 - Pain in left foot Coding Level of Care Code Est Pt Level 4 (98745) Diagnoses Metatarsalgia of both feet M77.41; M77.42 Pain in both feet M79.671; M79.672 Right foot pain M79.671 Arthritis of both feet M19.071; M19.072 Time Spent (min) 31
--- OUTSIDE RECORDS SUMMARY | 2025-10-04 08:48 | XMS_ITS ---
Author Name Nicholas Real NP Address [address] [place] [address] Phone [phone] Organization [facility] Care Team Providers Care Program Support Clerk Name Role Phone Richard Real Unavailable [phone] JULI LUCIA Unavailable [phone] Davidson Glaser Unavailable [phone] Reason for Referral Not Available Allergies, adverse [...] NEEDED FOR CONSTIPATION 2024-10-30 No Data Available [place]-3 Fish Oil 1200 mg Cap 1 capsule [...] Pain Assessment - NO pain present (1126F) [facility] [place] Pain Assessment - NO pain present (1126F) [facility] [place] Pain Assessment - NO pain present (1126F) [facility] [place] Pain Assessment - NO pain present (1126F) [facility] [place] Pain Assessment - NO pain present (1126F) [facility] [place] Pain Assessment - NO pain present (1126F) [facility] [place] Pain Assessment - NO pain present (1126F) [facility] [place] Hyperlipidemia, unspecifiedAge-related osteoporosis without current pathological fractureAllergic rhinitis, unspecifiedInsomnia, unspecifiedDermatitis, unspecifiedOther constipation Pain Assessment - NO pain present (1126F) [facility] Pain Assessment - NO pain present (1126F) [facility] New patient,40-59min; chronic exacerbation, 2 stable chronic or 1 acute illness add add modifier 95 for video (do not use for phone, instead use 24369-47) [facility]/2023 Hyperlipidemia, unspecifiedAge-related osteoporosis without current pathological fractureAllergic rhinitis, unspecifiedInsomnia, unspecifiedDermatitis, unspecifiedOther constipationOther specified disorders of thyroidVaricose veins of unsp lower extremities w oth complications New patient,40-59min; chronic exacerbation, 2 stable chronic or 1 acute illness add add modifier 95 for video (do not use for phone, instead use 49536-79) [facility] New patient,40-59min; chronic exacerbation, 2 stable chronic or 1 acute illness add add modifier 95 for video (do not use for phone, instead use 93790-73) [facility] New patient,40-59min; chronic exacerbation, 2 stable chronic or 1 acute illness add add modifier 95 for video (do not use for phone, instead use 29298-24) [facility] New patient,40-59min; chronic exacerbation, 2 stable chronic or 1 acute illness add add modifier 95 for video (do not use for phone, instead use 07860-02) [facility] New patient,40-59min; chronic exacerbation, 2 stable chronic or 1 acute illness add add modifier 95 for video (do not use for phone, instead use 75884-27) [facility] 05[place]/20[place] Estab. patient 30-39min; chronic exacerbation, 2 stable chronic or 1 acute illness add add modifier 95 for video, (do not use for phone, instead use 68564-05) [facility] Other problems related to [...] (do not use for phone, instead use 64626-22) [facility], ([place] 01/[place] Estab. patient 30-39min; chronic exacerbation, 2 stable chronic or 1 acute illness add add modifier 95 for video, (do not use for phone, instead use 67034-38) [facility]20[place] Estab. patient 30-39min; chronic exacerbation, 2 stable chronic or 1 acute illness add add modifier 95 for video, (do not use for phone, instead use 88807-76) [facility] Estab. patient 30-39min; chronic exacerbation, 2 stable chronic or 1 acute illness add add modifier 95 for video, (do not use for phone, instead use 95042-61) [facility] Estab. patient 30-39min; chronic exacerbation, 2 stable chronic or 1 acute illness add add modifier 95 for video, (do not use for phone, instead use 09234-29) [facility] Estab. patient 30-39min; chronic exacerbation, 2 stable chronic or 1 acute illness add add modifier 95 for video, (do not use for phone, instead use 94989-67) [facility] Estab. patient 30-39min; chronic exacerbation, 2 stable chronic or 1 acute illness add add modifier 95 for video, (do not use for phone, instead use 14964-38) [facility] Estab. patient 30-39min; chronic exacerbation, 2 stable chronic or 1 acute illness add add modifier 95 for video, (do not use for phone, instead use 99143-47) [facility] [place] Estab. patient 30-39min; chronic exacerbation, 2 stable chronic or 1 acute illness add add modifier 95 for video, (do not use for phone, instead use 13750-42) [facility] [place] 01[place] Estab. patient 30-39min; chronic exacerbation, 2 stable chronic or 1 acute illness add add modifier 95 for video, (do not use for phone, instead use 53997-01) [facility], [place] 01/[place] Estab. patient 20-29min; 1 stable chronic or 2 minor; add add modifier 95 for video, modifier 93 for phone [facility]/20[place] Other specified disorders of [...] modifier 95 for video, modifier 93 for [facility] [place]20[place] Estab. patient 20-29min; 1 stable chronic or 2 minor; add add modifier 95 for video, modifier 93 for [facility] 12/21/20[place] Estab. patient 20-29min; 1 stable chronic or 2 minor; add add modifier 95 for video, modifier 93 for [facility] 12/[place]/20[place] Estab. patient 20-29min; 1 stable chronic or 2 minor; add add modifier 95 for video, modifier 93 for [facility] 12/21/20[place] Estab. patient 20-29min; 1 stable chronic or 2 minor; add add modifier 95 for video, modifier 93 for [facility] [place] 12/21/20[place] Estab. patient 20-29min; 1 stable chronic or 2 minor; add add modifier 95 for video, modifier 93 for [facility], ([place] 12/21/2024 Vital Signs Date of Collection Vitals [...] tive Time Current Smoking Status Former smoker 1 Sex Male History of Procedures Procedures [...] (do not use for phone, instead use 80901-70) 75343 2022-09-03 No Data Available No Data Availa ble SBP < 130 (3074F) 3074F 2022-09-03 No Data Available No Data Available DBP 80-89 (3079F) 3079F 2022-09-03 No Data Available No Data Available New patient,40-59min; chronic exacerbation, 2 stable chronic or 1 acute illness add add modifier 95 for video (do not use for phone, instead use 60020-40) 69398 2023-05-29 No Data Available No Data Availa [...] (do not use for phone, instead use 14899-34) 11545 2024-01-07 No Data Available No Data Availa [...] 95 for video, modifier 93 for phone 21648 2024-12-21 No Data Available No Data Availa [...] joint pain increased [facility]. [facility]-up with [facility] [...] decision-maker. (1124F)Continue to see PCP. [facility] [...] area BID PRN neuropathic pain #50 gram [id number] Review by prescribing provider or pharmacist documented [...] ins card. 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
--- OUTSIDE RECORDS SUMMARY | 2025-10-04 08:49 | XMS_ITS | Patient Health Record ---
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 Plan Of Treatment Pending Test Test Name Order Date X ray : Foot, right 3V 08/31/2024 Insurance Providers Payer Name Payer Address Payer Phone Subscriber Number Group Number Insured Name Patient Relationship to Insured Coverage Start Date Coverage End Date [facility] [id number] [address] [address] [place] [phone] [id number] Milagro Zarate Self - patient is the insured Medical (General) History Medical History History ICD Code CAD (Cholesterol) thyroid Insomnia Allergic rhinitis Vitamin D deficiency Hearing loss Constipation Hypercholesterolemia Osteoarthritis Lumbar spondylosis thrombophlebitis Surgical History Surgery Date(Month/Year) colonoscopy biopsy
== END 2025-10-04 08:51 | disposition home or self-care (01) ==
LOC: HO.HPODS 08:30
PROVIDERS: PCP Internal Medicine; Visit Provider Student in an Organized Health Care Education/Training Program
DX: M77.41 Metatarsalgia, right foot (principal); M77.42 Metatarsalgia, left foot; M79.671 Pain in right foot; M79.672 Pain in left foot; M19.071 Primary osteoarthritis, right ankle and foot; M19.072 Primary osteoarthritis, left ankle and foot
CPT/HCPCS: 99214

== ENCOUNTER → 2025-10-04 08:29 | Outpatient (BNVA) | payer OTHER, SELFPAY | PROVIDERS: PCP Internal Medicine; Visit Provider Student in an Organized Health Care Education/Training Program | DX: M77.41 Metatarsalgia, right foot (principal); M77.42 Metatarsalgia, left foot; M19.071 Primary osteoarthritis, right ankle and foot; M19.072 Primary osteoarthritis, left ankle and foot | CPT/HCPCS: 99212 ==